=== PATIENT | female | born 1955 | race Caucasian/White ===

== ENCOUNTER 2016-12-19 09:42 | Inpatient (IN) ==
--- NOTE | 2016-12-19 10:09 | Emergency Department Report ---
General Adult HPI - General Chief complaint: Weakness Stated complaint: soa,weakness Time Seen by Provider: 12/19/16 10:09 Source: patient, family Mode of arrival: ambulatory Limitations: no limitations - History of Present Illness HPI narrative: Patient is a 61-year-old female presents with shortness of air weakness. Patient has a history of high blood pressure, diabetes. Patient states that she had her Dr. do not get along, she has not followed up with him and ran out of her medications 2 months ago. Patient's been having increasing weakness and swelling of her legs, the past 2 weeks specifically has worsened. Patient complains of shortness of breath, oxygen saturations are currently 88% on room air. Patient brought to the ER for evaluation. Onset (ago): week(s) Severity: moderate - Related Data Home Medications Medication Instructions Recorded Confirmed hydroCHLOROthiazide 1 tab PO WB #0 tab 03/18/15 12/19/16 [Hydrochlorothiazide] Insulin Lispro [Humalog Kwikpen 30 unit SQ TIDWM #0 06/23/15 12/19/16 U-200] Moexipril HCl 1 tab PO BID #180 06/23/15 12/19/16 Gabapentin 100 mg PO TID #0 cap 06/24/15 12/19/16 Amlodipine [Norvasc] 5 mg PO DAILY 12/19/16 12/19/16 Citalopram [Celexa] 20 mg PO DAILY 12/19/16 12/19/16 Insulin Glargine,Hum.rec.anlog 53 units SQ HS 12/19/16 12/19/16 [Toujeo Solostar] Levothyroxine Tab [Synthroid] 88 mcg PO ACB 12/19/16 12/19/16 Liraglutide [Victoza] 0.6 mg SQ AM 12/19/16 12/19/16 Simvastatin 20 mg PO DAILY 12/19/16 12/19/16 Allergies Allergy/AdvReac Type Severity Reaction Status Date / Time Sulfa (Sulfonamide Allergy Mild ITCHING Verified 12/19/16 09:51 Antibiotics) azithromycin Allergy Unknown Verified 12/19/16 09:51 Review of Systems Constitutional: Reports: weakness. Denies: fever, chills ENT: Denies: throat pain, dental pain Cardiovascular: Reports: dyspnea on exertion. Denies: chest pain, palpitations Respiratory: Reports: dyspnea. Denies: cough, wheezes, hemoptysis Gastrointestinal: Denies: abdominal pain, nausea, vomiting, hematemesis Genitourinary: Denies: dysuria, frequency Neurological: Reports: weakness (generalized nonspecific). Denies: headache Endocrine: Reports: fatigue PFSH Patient Stated Medical History Macular Degeneration Yes Other HEENT Yes: injections q 7 wks in both eyes Hypertension Yes Diabetes Mellitus Type 1 Yes Shingles Yes Post Menopausal Yes - Social History Smoking status: Never smoker Substance use type: does not use Alcohol intake frequency: does not drink Physical Exam - General General appearance: alert, in no apparent distress - Head Head exam: normal inspection - Eye Eye exam: Present: PERRL, EOMI - ENT ENT exam: Present: normal oropharynx, mucous membranes moist - Neck Neck exam: Present: trachea midline. Absent: tenderness - Chest Chest inspection: Present: symmetric chest wall rise. Absent: tenderness - Respiratory Respiratory exam: Present: normal lung sounds bilaterally, accessory muscle use , prolonged expiratory phase. Absent: respiratory distress, wheezes, stridor - Cardiovascular Cardiovascular exam: Present: regular rate, normal rhythm, normal heart sounds - Abdominal Exam Abdominal exam: Present: soft, normal bowel sounds. Absent: distention, tenderness - Skin Skin exam: Present: warm, dry - Neurological Exam Neurological exam: Present: alert, oriented X3 - Psychiatric Psychiatric exam: Present: normal affect, normal mood Course Vital Signs Temperature 98.2 F 12/19/16 09:51 Pulse Rate 91 12/19/16 09:51 Respiratory Rate 24 12/19/16 09:51 Blood Pressure 226/105 H 12/19/16 09:51 Pulse Oximetry 92 12/19/16 09:51 Temperature 98.5 F 12/19/16 13:15 Pulse Rate 102 H 12/19/16 13:15 Respiratory Rate 30 H 12/19/16 13:15 Blood Pressure 177/74 H 12/19/16 13:15 Pulse Oximetry 88 L 12/19/16 13:15 Medical Decision Making - [facility] Narrative Medical decision making narrative: CHF exacerbation, COPD exacerbation, pulmonary embolus, pneumonia, UTI, sepsis Patient continuing to require 2 L oxygen by nasal cannula discuss case with Dr. Powers she will admit - Medical Records Medical records reviewed: Yes: I reviewed the patient's medical records. - Lab Data Lab results reviewed: Yes: I reviewed the patient's lab results. Result diagrams: 12/19/16 10:28 12/19/16 10:28 Lab Results 12/19/16 12/19/16 12/19/16 Range/Units 10:28 10:28 10:28 WBC 9.2 (4.5-11.0) T/MM3 RBC 3.68 L (4.00-5.20) M/MM3 Hgb 11.3 L (12-16) GM/DL Hct 33.7 L (36-46) % MCV 91.6 (80-100) UM3 MCH 30.7 (26-34) UUG MCHC 33.5 (31-37) GM/DL RDW Std Deviation 40.9 (36.9-50.2) FL Plt Count 294 (130-400) T/MM3 MPV 10.0 (9.4-12.4) UM3 Immature Gran % (Auto) 0.7 H (0.0-0.5) % Neut % (Auto) 73.4 H (33-66) % Lymph % (Auto) 17.4 L (23-45) % [place] % (Auto) 5.8 (0-9.0) % Eos % (Auto) 2.5 (0-4) % Baso % (Auto) 0.2 (0-2) % Neut # (Auto) 6.7 (1.8-7.7) T/MM3 Lymph # (Auto) 1.6 (1-4.8) T/MM3 [place] # (Auto) 0.5 (0-0.8) T/MM3 Eos # (Auto) 0.2 (0-0.5) T/MM3 Baso # (Auto) 0.0 (0-0.2) T/MM3 Abs Immat Gran (auto) 0.06 H (0.00-0.03) T/MM3 D-Dimer 649 H (0-230) NG/ML Turbidity < 20 (0-20) Sodium 136 (134-144) MEQ/L Potassium 4.6 (3.6-5) MEQ/L Chloride 103 (98-107) MEQ/L Carbon Dioxide 26 (22-30) MEQ/L Anion Gap 7 (5-15) MEQ/L BUN 21.0 H (7-17) MG/DL Creatinine 1.0 (0.7-1.2) MG/DL GFR Calculation 57 BUN/Creatinine Ratio 21 (6-26) RATIO Glucose 359 H (65-110) MG/DL Calculated Osmolality 279 (261-280) MOSM/KG Calcium 9.2 (8.4-10.2) MG/DL Total Bilirubin 0.40 (0.20-1.30) MG/DL Icterus Index < 2 (0-7) AST 23 (14-36) U/L ALT 34 (9-52) U/L Alkaline Phosphatase 131 H (38-126) U/L Troponin I < 0.012 (0-0.12) ng/ml B-Natriuretic Peptide 1020 H (0-175) pg/mL Total Protein 7.0 (6.3-8.2) G/DL Albumin 3.2 L (3.5-5.0) G/DL Globulin 3.8 H (2.4-3.6) G/DL Albumin/Globulin Ratio 0.8 L (1.1-2.2) RATIO Specimen Hemolysis 17 (0-25) - Radiology Data Radiology results reviewed: Yes: I reviewed the patient's radiology results. Chest x-ray: Mild edema no mar[place] infiltrates CT scan chest: No pulmonary emboli, edema - EKG Data EKG #1 EKG attestation: Yes: I reviewed and interpreted this EKG. EKG shows normal: sinus rhythm Rate: normal Rhythm: NSR [place]/QRS: normal When compared to previous EKG there are: no significant changes Disposition Clinical Impression: Hypoxemia requiring supplemental oxygen CHF exacerbation Qualifiers: Congestive heart failure type: unspecified congestive heart failure type Qualified Code(s): I50.9 - Heart failure, unspecified Disposition: 02 To [facility] [place] Acute Care Condition: Stable Time of Disposition: 13:33 - Seen By: physician
[2016-12-19] MEDS ORDERED: NITROGLYCERIN 0.4 MG SUBLINGUAL TABLET SL PRN (10:12)
[2016-12-19] MEDS ORDERED: HYDRALAZINE 20 MG/ML INJECTION IVP ONE ×2 (10:13→12:11)
--- OUTSIDE RECORDS SUMMARY | 2016-12-19 10:15 | External Medical Summary | Referral Summary ---
:1955 Author Organization [facility] [address] [place] [id number] Care Team Providers Name Role Phone Ted Francisco Primary Care Physician Encounter VC Date(s): 11/15/15 - 11/15/15 [facility] [address] [place] [phone] [place] Discharge Diagnosis: Hypertension Discharge Diagnosis: Diabetes Discharge Diagnosis: Adult-onset obesity Discharge Disposition: 01-Home or Self Care Attending Physician: Ayala Echevarria PA-C Admitting Physician: Ayala Echevarria PA-C Vital Signs Most recent to oldest [Reference Range]: 1 Peripheral Pulse Rate [60-100 bpm] 72 bpm (11/15/15 9:59 AM) Respiratory Rate [14-20 br/min] 16 br/min (11/15/15 9:59 AM) Blood Pressure [90-140/60-90 mmHg] 154/74 mmHg *HI* (11/15/15 9:59 AM) Problem List Condition Effective Dates Status Health Status Informant Adult-onset obesity(Confirmed) Active Asthma(Confirmed) Active Bilateral cataracts(Confirmed) Active Coronary artery disease(Confirmed) Active Diabetes(Confirmed) Active Edema(Confirmed) Active Hernia, ventral(Confirmed) Active Hyperlipidemia(Confirmed) Active Hypertension(Confirmed) Active Adult hypothyroidism(Confirmed) Active Depression(Confirmed) Active Allergies, Adverse Reactions, Alerts Substance Reaction Severity Status erythromycin Hives Active Erythromycin Base Hives Active sulfamethoxazole Active trimethoprim Active Medications aspirin 0 Refill(s) Start Date: 01/08/14 Status: OrderedBD pen needles BD pen needles, See Instructions, 31 g x 8 mm (short). Uses 4 daily. Box of 100. , # 4 boxes, 1 Refill(s), Pharmacy: [facility], 31 g x 8 mm (short). Uses 4 daily. Box of 100. Start Date: 10/19/15 Status: Orderedcitalopram 20 mg oral tablet 20 mg 1 tabs, Oral, Daily, # 90 tabs, 1 Refill(s), Pharmacy: [facility], 1 tabs Oral Daily Start Date: 10/19/15 Status: Orderedgabapentin 100 mg oral capsule 100 mg 1 caps, Oral, TID, # 90 caps, 3 Refill(s), Pharmacy: [facility], 1 caps Oral TID Start Date: 08/20/15 Status: OrderedHumaLOG KwikPen 100 units/mL subcutaneous solution 30 units, SubCutaneous, TIDAC, # 10 mL, 6 Refill(s), Pharmacy: [facility], 30units SubCutaneous TIDAC Start Date: 11/15/15 Status: Orderedhydrochlorothiazide 25 mg oral tablet 25 mg 1 tabs, Oral, Daily, # 90 tabs, 1 Refill(s), Pharmacy: [facility], 1 tabs Oral Daily Start Date: 10/19/15 Status: OrderedMisc Medication eye drops for right eye glaucoma, 0 Refill(s) Start Date: 02/09/15 Status: OrderedMobic 7.5 mg oral tablet 7.5 mg 1 tabs, Oral, Daily, # 30 tabs, 0 Refill(s), Pharmacy: [facility], 1 tabs Oral Daily Start Date: 07/09/15 Status: OrderedNorvasc 5 mg oral tablet 5 mg 1 tabs, Oral, Daily, # 90 tabs, 3 Refill(s), Pharmacy: [facility], 1 tabs Oral Daily Start Date: 11/05/15 Status: OrderedONE TOUCH ULTRA TEST STRIPS ONE TOUCH ULTRA TEST STRIPS, See Instructions, USE 4 TIMES DAILY. Box of 100 strips. DX: E 11.9, # 4 boxes, 1 Refill(s), Pharmacy: [facility], USE 4 TIMES DAILY. Box of 100 strips. DX: E 11.9 Start Date: 10/19/15 Status: OrderedProAir HFA 90 mcg/inh inhalation aerosol 180 mcg 2 puffs, Inhalation, q4hr, # 1 Each, 2 Refill(s), Pharmacy: [facility] Start Date: 10/19/15 Status: OrderedSynthroid 88 mcg (0.088 mg) oral tablet 88 mcg 1 tabs, Oral, Daily, # 90 tabs, 1 Refill(s), Pharmacy: [facility], Note dose increase, 1 tabs Oral Daily Start Date: 10/19/15 Status: OrderedToujeo SoloStar 300 units/mL subcutaneous solution 48 units, SubCutaneous, Bedtime (once a day), Increased to 50u at bedtime on 02/17, # 9 Each, 1 Refill(s), Pharmacy: [facility], Note dose increase, 48 units SubCutaneous Bedtime (once a day),x30 days Start Date: 11/05/15 Stop Date: 01/04/16 Status: OrderedUnivasc 15 mg oral tablet 15 mg 1 tabs, Oral, BID, # 180 tabs, 1 Refill(s), Pharmacy: [facility], 1 tabs Oral BID Start Date: 10/19/15 Status: OrderedVictoza 18 mg/3 mL subcutaneous solution 1.2 mg, SubCutaneous, Daily, # 6 Each, 3 Refill(s), Pharmacy: [facility], [place] card if needed., 1.2 mg SubCutaneous Daily Start Date: 11/05/15 Status: OrderedZocor 20 mg oral tablet 20 mg 1 tabs, Oral, Bedtime (once a day), # 90 tabs, 3 Refill(s), [facility], 1 tabs Oral Bedtime (once a day) Start Date: 11/05/15 Status: Ordered Results No data available for this section Immunizations Vaccine Date Refusal Reason tetanus/diphth/pertuss (Tdap) adult/adol 06/09/13 Procedures Procedure Date Related Diagnosis Body Site COLORECTAL CANCER SCREENING; COLONOSCOPY ON 06/24/15 INDIVIDUAL NOT MEETING CRITERIA FOR HIGH RISK1 Cholecystectomy 1996 Carpal tunnel release Cataract extraction section 1April 2015 normal colonoscopy, repeat in 10 years Social History Social History Type Response Smoking Status Never smoker Assessment and Plan Extracted from: Title: Ambulatory Patient Education Author: Ayala Echevarria PA-C Date: Family Medicine Hypertension Hypertension, commonly called high blood pressure, is when the force of blood pumping through your arteries is too strong. Your arteries are the blood vessels that carry blood from your heart throughout your body. A blood pressure reading consists of a higher number over a lower number, such as 110/72. The higher number (systolic) is the pressure inside your arteries when your heart pumps. The lower n umber (diastolic) is the pressure inside your arteries when your heart relaxes. Ideally you want your blood pressure below 120/80. Hypertension forces your heart to work harder to pump blood. Your arteries may become narrow or stiff. Having hypertension puts you at risk for heart disease, stroke, and other problems. RISK FACTORS Some risk factors for high blood pressure are controllable. Others are not. Risk factors you cannot control include: Race. You may be at higher risk if you are . Age. Risk increases with age. Gender. Men are at higher risk than women before age 45 years. After age 65, women are at higher risk than men. Risk factors you can control include: Not getting enough exercise or physical activity. Being overweight. Getting too much fat, sugar, calories, or salt in your diet. Drinking too much alcohol. SIGNS AND SYMPTOMS Hypertension does not usually cause signs or symptoms. Extremely high blood pressure (hypertensive crisis) may cause headache, anxiety, shortness of breath , and nosebleed. DIAGNOSIS To check if you have hypertension, your health care provider will measure your blood pressure while you are seated, with your arm held at the level of your heart. It should be measured at least twice us ing the same arm. Certain conditions can cause a difference in blood pressure between your right and left arms. A blood pressure reading that is higher than normal on one occasion does not mean that you need treatment. If it is not clear whether you have high blood pressure, you may be asked to return on a different day to have your blood pressure checked again. Or, you may be asked to monitor your blood pressure at home for 1 or more weeks. TREATMENT Treating high blood pressure includes making lifestyle changes and possibly taking medicine. Living a healthy lifestyle can help lower high blood pressure. You may need to change some of your habits. Lifestyle changes may include: Following the DASH diet. This diet is high in fruits, vegetables, and whole grains. It is low in salt, red meat, and added sugars. Keep your sodium intake below 2,300 mg per day. Getting at least 3045 minutes of aerobic exercise at least 4 times per week. Losing weight if necessary. Not smoking. Limiting alcoholic beverages. Learning ways to reduce stress. Your health care provider may prescribe medicine if lifestyle changes are not enough to get your blood pressure under control, and if one of the following is true: Your systolic blood pressure is above 150. Your diastolic blood pressure is above 90. You have diabetes, and your systolic blood pressure is over 140 or your diastolic blood pressure is over 85. You have heart disease or have had a stroke or heart attack, and your blood pressure is above 130 over 80, which is written as 130/80. HOME CARE INSTRUCTIONS Have your blood pressure rechecked as directed by your health care provider. Take medicines only as directed by your health care provider. Follow the directions carefully. Blood pressure medicines must be taken as prescribed. The medicine does not work as well when you sk ip doses. Skipping doses also puts you at risk for problems. Do not smoke. Monitor your blood pressure at home as directed by your health care provider. SEEK MEDICAL CARE IF: You think you are having a reaction to medicines taken. You have recurrent headaches or feel dizzy. You have swelling in your ankles. You have trouble with your vision. SEEK IMMEDIATE MEDICAL CARE IF: You develop a severe headache or confusion. You have unusual weakness, numbness, or feel faint. You have severe chest or abdominal pain. You vomit repeatedly. You have trouble breathing. MAKE SURE YOU: Understand these instructions. Will watch your condition. Will get help right away if you are not doing well or get worse. This information is not intended to replace advice given to you by your health care provider. Make sure you discuss any questions you have with your health care provider. Document Released: 02/19/2006 Document Revised: 03/12/2015 Document Reviewed: 12/12/2013 [employer] Patient Information 2016 [employer]. Health and Wellness Exercising to Lose Weight Exercising can help you to lose weight. In order to lose weight through exercise, you need to do vigorous-intensity exercise. You can tell that you are exercising with vigorous intensity if you are felicitas thing very hard and fast and cannot hold a conversation while exercising. Moderate-intensity exercise helps to maintain your current weight. You can tell that you are exercising at a moderate level if you have a higher heart rate and faster breathing, but you are still able to hold a conversation. HOW OFTEN SHOULD I EXERCISE? Choose an activity that you enjoy and set realistic goals. Your health care provider can help you to make an activity plan that works for you. Exercise regularly as directed by your health care provider. This may include: Doing resistance training twice each week, such as: Push-ups. Sit-ups. Lifting weights. Using resistance bands. Doing a given intensity of exercise for a given amount of time. Choose from these options: 150 minutes of moderate-intensity exercise every week. 75 minutes of vigorous-intensity exercise every week. A mix of moderate-intensity and vigorous-intensity exercise every week. Children, women, people who are out of shape, people who are overweight, and older adults may need to consult a health care provider for individual recommendations. If you have any sort of medi darrell condition, be sure to consult your health care provider before starting a new exercise program. WHAT ARE SOME ACTIVITIES THAT CAN HELP ME TO LOSE WEIGHT? Walking at a rate of at least 4.5 miles an hour. Jogging or running at a rate of 5 miles per hour. Biking at a rate of at least 10 miles per hour. Lap swimming. Roller-skating or in-line skating. Cross-country skiing. Vigorous competitive sports, such as football, basketball, and soccer. Jumping rope. Aerobic dancing. HOW CAN I BE MORE ACTIVE IN MY DAY-TO-DAY ACTIVITIES? Use the stairs instead of the elevator. Take a walk during your lunch break. If you drive, park your car farther away from work or school. If you take public transportation, get off one stop early and walk the rest of the way. Make all of your phone calls while standing up and walking around. Get up, stretch, and walk around every 30 minutes throughout the day. WHAT GUIDELINES SHOULD I FOLLOW WHILE EXERCISING? Do not exercise so much that you hurt yourself, feel dizzy, or get very short of breath. Consult your health care provider prior to starting a new exercise program. Wear comfortable clothes and shoes with good support. Drink plenty of water while you exercise to prevent dehydration or heat stroke. Body water is lost during exercise and must be replaced. Work out until you breathe faster and your heart beats faster. This information is not intended to replace advice given to you by your health care provider. Make sure you discuss any questions you have with your health care provider. Document Released: 03/24/2011 Document Revised: 03/12/2015 Document Reviewed: 07/23/2014 [facility] Patient Information 2016 [facility], [facility]. Ophthalmology Type 2 Diabetes Mellitus Type 2 diabetes mellitus, often simply referred to as type 2 diabetes, is a long-lasting (chronic) disease. In type 2 diabetes, the pancreas does not make enough insulin (a hormone), the cells are less responsive to the insulin that is made (insulin resistance), or both. Normally , insulin moves sugars from food into the tissue cells. The tissue cells use the sugars for energy. The lack of insulin or t he lack of normal response to insulin causes excess sugars to build up in the blood instead of going into the tissue cells. As a result, high blood sugar ( hyperglycemia) develops. The effect of high sug ar (glucose) levels can cause many complications. Type 2 diabetes was also previously called adult-onset diabetes, but it can occur at any age. RISK FACTORS A person is predisposed to developing type 2 diabetes if someone in the family has the disease and also has one or more of the following primary risk factors: Weight gain, or being overweight or obese. An inactive lifestyle. A history of consistently eating high-calorie foods. Maintaining a normal weight and regular physical activity can reduce the chance of developing type 2 diabetes. SYMPTOMS A person with type 2 diabetes may not show symptoms initially. The symptoms of type 2 diabetes appear slowly. The symptoms include: Increased thirst (polydipsia). Increased urination (polyuria). Increased urination during the night (nocturia). Sudden or unexplained weight changes. Frequent, recurring infections. Tiredness (fatigue). Weakness. Vision changes, such as blurred vision. Fruity smell to your breath. Abdominal pain. Nausea or vomiting. Cuts or bruises which are slow to heal. Tingling or numbness in the hands or feet. DIAGNOSIS Type 2 diabetes is frequently not diagnosed until complications of diabetes are present. Type 2 diabetes is diagnosed when symptoms or complications are present and when blood glucose levels are increas ed. Your blood glucose level may be checked by one or more of the following blood tests: A fasting blood glucose test. You will not be allowed to eat for at least 8 hours before a blood sample is taken. A random blood glucose test. Your blood glucose is checked at any time of the day regardless of when you ate. A hemoglobin A1c blood glucose test. A hemoglobin A1c test provides information about blood glucose control over the previous 3 months. An oral glucose tolerance test (OGTT). Your blood glucose is measured after you have not eaten (fasted) for 2 hours and then after you drink a glucose -containing beverage. TREATMENT You may need to take insulin or diabetes medicine daily to keep blood glucose levels in the desired range. If you use insulin, you may need to adjust the dosage depending on the carbohydrates that you eat with each meal or snack. Lifestyle changes are recommended as part of your treatment. These may include: Following an individualized diet plan developed by a assistant speech language pathologist or dietitian. Exercising daily. Your health care providers will set individualized treatment goals for you based on your age, your medicines, how long you have had diabetes, and any other medical conditions you have. Generally, the go al of treatment is to maintain the following blood glucose levels: Before meals (preprandial): 38249 mg/dL. After meals (postprandial): below 180 mg/dL. A1c: less than 6.57%. HOME CARE INSTRUCTIONS Have your hemoglobin A1c level checked twice a year. Perform daily blood glucose monitoring as directed by your health care provider. Monitor urine ketones when you are ill and as directed by your health care provider. Take your diabetes medicine or insulin as directed by your health care provider to maintain your blood glucose levels in the desired range. Never run out of diabetes medicine or insulin. It is needed every day. If you are using insulin, you may need to adjust the amount of insulin given based on your intake of carbohydrates. Carbohydrates can raise blood glucose levels but need to be included in your di et. Carbohydrates provide vitamins, minerals, and fiber which are an essential part of a healthy diet. Carbohydrates are found in fruits, vegetables, whole grains, dairy products, legumes, and foods containing added sugars. Eat healthy foods. You should make an appointment to see a registered dietitian to help you create an eating plan that is right for you. Lose weight if you are overweight. Carry a medical alert card or wear your medical alert jewelry. Carry a 15-gram carbohydrate snack with you at all times to treat low blood glucose (hypoglycemia). Some examples of 15-gram carbohydrate snacks include: Glucose tablets, 3 or 4. Glucose gel, 15-gram tube. Raisins, 2 tablespoons (24 grams). Jelly beans, 6. Animal crackers, 8. Regular pop, 4 ounces (120 mL). Gummy treats, 9. Recognize hypoglycemia. Hypoglycemia occurs with blood glucose levels of 70 mg/dL and below. The risk for hypoglycemia increases when fasting or skipping meals, during or after intense exercise, and during sleep. Hypoglycemia symptoms can include: Tremors or shakes. Decreased ability to concentrate. Sweating. Increased heart rate. Headache. Dry mouth. Hunger. Irritability. Anxiety. Restless sleep. Altered speech or coordination. Confusion. Treat hypoglycemia promptly. If you are alert and able to safely swallow , follow the 15:15 rule: Take 1520 grams of rapid-acting glucose or carbohydrate. Rapid- acting options include glucose gel, glucose tablets, or 4 ounces (120 mL) of fruit juice, regular soda, or low-fat milk. Check your blood glucose level 15 minutes after taking the glucose. Take 1520 grams more of glucose if the repeat blood glucose level is still 70 mg/dL or below. Eat a meal or snack within 1 hour once blood glucose levels return to normal. Be alert to feeling very thirsty and urinating more frequently than usual, which are early signs of hyperglycemia. An early awareness of hyperglycemia allows for prompt treatment. Treat hyperglycemia as directed by your health care provider. Engage in at least 150 minutes of moderate-intensity physical activity a week, spread over at least 3 days of the week or as directed by your health care provider. In addition, you should engage in resistance exercise at least 2 times a week or as directed by your health care provider. Try to spend no more than 90 minutes at one time inactive. Adjust your medicine and food intake as needed if you start a new exercise or sport. Follow your sick-day plan anytime you are unable to eat or drink as usual. Do not use any tobacco products including cigarettes, chewing tobacco, or electronic cigarettes. If you need help quitting, ask your health care provider. Limit alcohol intake to no more than 1 drink per day for non women and 2 drinks per day for men. You should drink alcohol only when you are also eating food. Talk with your health care pr ovider whether alcohol is safe for you. Tell your health care provider if you drink alcohol several times a week. Keep all follow-up visits as directed by your health care provider. This is important. Schedule an eye exam soon after the diagnosis of type 2 diabetes and then annually. Perform daily skin and foot care. Examine your skin and feet daily for cuts, bruises, redness, nail problems, bleeding, blisters, or sores. A foot exam by a health care provider should be done annually. Ragland your teeth and gums at least twice a day and floss at least once a day. Follow up with your dentist regularly. Share your diabetes management plan with your workplace or school. Keep your immunizations up to date. It is recommended that you receive a flu (influenza) vaccine every year. It is also recommended that you receive a pneumonia (pneumococcal) vaccine. If you are 65 years of age or older and have never received a pneumonia vaccine, this vaccine may be given as a series of two separate shots. Ask your health care provider which additional vaccines may be recommended. Learn to manage stress. Obtain ongoing diabetes education and support as needed. Participate in or seek rehabilitation as needed to maintain or improve independence and quality of life. Request a physical or occupational therapy referral if you are having foot or hand numbnes s, or difficulties with grooming, dressing, eating, or physical activity. SEEK MEDICAL CARE IF: You are unable to eat food or drink fluids for more than 6 hours. You have nausea and vomiting for more than 6 hours. Your blood glucose level is over 240 mg/dL. There is a change in mental status. You develop an additional serious illness. You have diarrhea for more than 6 hours. You have been sick or have had a fever for a couple of days and are not getting better. You have pain during any physical activity. SEEK IMMEDIATE MEDICAL CARE IF: You have difficulty breathing. You have moderate to large ketone levels. MAKE SURE YOU: Understand these instructions. Will watch your condition. Will get help right away if you are not doing well or get worse. This information is not intended to replace advice given to you by your health care provider. Make sure you discuss any questions you have with your health care provider. Document Released: 02/19/2006 Document Revised: 03/12/2015 Document Reviewed: 09/17/2012 ExitCare Patient Information 2016 [facility] [facility]. No follow up information was provided. Extracted from: Title: Office Visit Note- Recheck Author: Ayala Echevarria PA-C Date: 02/17 HTN/DM Assessment/Plan Adult-onset obesity She seems to be doing well on the Victoza. Will continue on 1.2mg at this time. Monitor weight, and work on exercise. Ordered: Office Visit Level 3 Est 80580 Diabetes Her blood sugars during the day seem to be fine, but the fasting BG is veryhigh. Will have pt increase her Toujeo to 50u at bedtime. Continue on Humalog at 30u at meals. She can adjust as n eeded for how much she is eating. Sheapparently didn't receive her Humalog KwikPens with her other meds from [facility] back in October. I tried to resend another script today, and see if she needs aPA or if they just didn't receive therefill script. She has enough Humalog at this time. Pt is advised to recheck in clinic in January to recheck labs. Call with any concerns before that time. Ordered: Office Visit Level 3 Est 80933 Hypertension Her BP is still a little high. She is advised to continue to check BP's at home, and if consistently >150/90, then we need to adjust meds. She is already on HCTZ, Univasc, and Norvasc. Work on decreasing salt intake and losing weight. Will recheck with pt in January. Ordered: Office Visit Level 3 Est [id number] Orders: insulin glargine, 48 units, SubCutaneous, Bedtime (once a day), Increased to 50u at bedtime on 11/15/15, # 9 Each, 1 Refill(s), [facility], Note dose increase, 48 units SubCutaneous Bedtime (once a day),x30 days insulin lispro, 30 units, SubCutaneous, TIDAC, # 10 mL, 6 Refill(s), [facility] Pharmacy, 30 units SubCutaneous TIDAC
--- OUTSIDE RECORDS SUMMARY | 2016-12-19 10:15 | External Medical Summary | Referral Summary ---
:1955 Author Organization [facility] [address] [place] [address] Care Team Providers Name Role Phone Ted Francisco Primary Care Physician Encounter VC Date(s): 02/09/15 - 02/09/15 [facility] [address] [place] [phone] [place] Discharge Disposition: 01-Home or Self Care Attending Physician: Ted Francisco MD Admitting Physician: Ted Francisco MD Vital Signs Most recent to oldest [Reference Range]: 1 Blood Pressure [90-140/60-90 mmHg] 140/80 mmHg (02/09/15 8:09 AM) Problem List Condition Effective Dates Status Health Status Informant Adult-onset obesity(Confirmed) Active Bilateral cataracts(Confirmed) Active Coronary artery disease(Confirmed) Active Diabetes(Confirmed) Active Edema(Confirmed) Active Hypertension(Confirmed) Active Adult hypothyroidism(Confirmed) Active Allergies, Adverse Reactions, Alerts Substance Reaction Severity Status erythromycin Hives Active Erythromycin Base Hives Active sulfamethoxazole Active trimethoprim Active Medications aspirin 0 Refill(s) Start Date: 01/08/14 Status: OrderedBD pen needles BD pen needles, See Instructions, 31 g x 8 mm (short). Uses 4 daily. Box of 100. , # 4 boxes, 1 Refill(s), Pharmacy: [facility]/pharmacy, 31 g x 8 mm (short). Uses 4 daily. Box of 100. Start Date: 12/17/14 Status: Orderedhydrochlorothiazide 25 mg oral tablet 25 mg 1 tabs, Oral, Daily, # 90 tabs, 0 Refill(s), Pharmacy: [facility]/ pharmacy, 1 tabs Oral Daily Start Date: 12/07/14 Status: OrderedMisc Medication eye drops for right eye glaucoma, 0 Refill(s) Start Date: 02/09/15 Status: OrderedNovoLOG FlexPen 100 units/mL subcutaneous solution 35 units, SubCutaneous, TIDAC, # 10 mL, 0 Refill(s), other reason (Rx), 40 units SubCutaneous TIDAC,x90 days Start Date: 12/22/14 Stop Date: 03/22/15 Status: OrderedONE TOUCH ULTRA TEST STRIPS ONE TOUCH ULTRA TEST STRIPS, See Instructions, USE 4 TIMES DAILY. Box of 100 strips. DX: E 11.9, # 4 boxes, 1 Refill(s), Pharmacy: [facility]/pharmacy, USE 4 TIMES DAILY. Box of 100 strips. DX: E 11.9 Start Date: 12/17/14 Status: OrderedProAir HFA 90 mcg/inh inhalation aerosol 2 puffs, Inhalation, q4hr, # 1 Each, 2 Refill(s), [id number] Start Date: 05/28/14 Status: OrderedSynthroid 50 mcg (0.05 mg) oral tablet 50 mcg 1 tabs, Oral, Daily, # 60 tabs, 0 Refill(s), [facility], 1 tabs Oral Daily,x60 days Start Date: 02/09/15 Stop Date: 04/10/15 Status: OrderedToufrancescoo SoloStar 300 units/mL subcutaneous solution 45 units, SubCutaneous, Bedtime (once a day), # 4 mL, 0 Refill(s), samples given to patient (Rx) Start Date: 02/09/15 Stop Date: 03/11/15 Status: OrderedUnivasc 15 mg oral tablet 15 mg 1 tabs, Oral, Daily, # 90 tabs, 1 Refill(s), [facility], 1 tabs Oral Daily Start Date: 02/09/15 Status: Ordered Results Chemistry Most recent to oldest [Reference Range]: 1 Sodium Lvl [135-144 mEq/L] 139 mEq/L (02/09/15 8:40 AM) Potassium Lvl [3.5-5.2 mEq/L] 4.8 mEq/L (02/09/15 8:40 AM) Chloride [99-111 mEq/L] 103 mEq/L (02/09/15 8:40 AM) CO2 [22-31 mEq/L] 26 mEq/L (02/09/15 8:40 AM) AGAP [3-20] 10 (02/09/15 8:40 AM) BUN [10-20 mg/dL] 19 mg/dL (02/09/15 8:40 AM) Glucose Lvl [70-99 mg/dL] 211 mg/dL *HI* (02/09/15 8:40 AM) Creatinine Lvl [0.57-1.11 mg/dL] 0.82 mg/dL (02/09/15 8:40 AM) eGFR [>60 mL/min] >60 mL/min 1 (02/09/15 8:40 AM) Calcium Lvl [8.9-10.5 mg/dL] 9.5 mg/dL (02/09/15 8:40 AM) Albumin Lvl [3.5-5.0 gm/dL] 3.3 gm/dL *LOW* (02/09/15 8:40 AM) Total Protein [6.4-8.3 gm/dL] 6.1 gm/dL *LOW* (02/09/15 8:40 AM) Globulin [1.8-4.0 gm/dL] 2.8 gm/dL (02/09/15 8:40 AM) ALT [0-55 U/L] 19 U/L (02/09/15 8:40 AM) AST [5-34 U/L] 21 U/L (02/09/15 8:40 AM) Alk Phos [40-150 U/L] 94 U/L (02/09/15 8:40 AM) Bili Total [0.2-1.2 mg/dL] 0.4 mg/dL (02/09/15 8:40 AM) BNP [0-99 pg/mL] 45 pg/mL (02/09/15 8:40 AM) T4 Free [0.7-1.5 ng/dL] 1.0 ng/dL (02/09/15 8:40 AM) TSH with Reflex Free T4 [0.35-4.94] 6.15 *HI* (02/09/15 8:40 AM) Hgb A1c [4.1-5.6 %] 7.8 % *HI* (02/09/15 8:40 AM) eAvg Glucose 177.2 mg/dL (02/09/15 8:40 AM) 1Result Comment: Multiply eGFR results by 1.21 for race. Immunizations Vaccine Date Refusal Reason tetanus/diphth/pertuss (Tdap) adult/adol 06/09/13 Procedures Procedure Date Related Diagnosis Body Site Collection of venous blood by venipuncture 02/09/15 Carpal tunnel release Cataract extraction section Cholecystectomy Social History Social History Type Response Smoking Status Never smoker Assessment and Plan Extracted from: Title: Ambulatory Patient Education Author: Ted Francisco MD Date: Ophthalmology Cataract A cataract is a clouding of the lens of the eye. When a lens becomes cloudy, vision is reduced based on the degree and nature of the clouding. Many cataracts reduce vision to some degree. Some cataracts make people more near-sighted as they develop. Other cataracts increase glare. Cataracts that are ignored and become worse can sometimes look white. The white color can be seen through the pupil. CAUSES Aging. However, cataracts may occur at any age, even in newborns. Certain drugs. Trauma to the eye. Certain diseases such as diabetes. Specific eye diseases such as chronic inflammation inside the eye or a sudden attack of a rare form of glaucoma. Inherited or acquired medical problems. SYMPTOMS Gradual, progressive drop in vision in the affected eye. Severe, rapid visual loss. This most often happens when trauma is the cause. DIAGNOSIS To detect a cataract, an eye doctor examines the lens. Cataracts are best diagnosed with an exam of the eyes with the pupils enlarged (dilated) by drops. TREATMENT For an early cataract, vision may improve by using different eyeglasses or stronger lighting. If that does not help your vision, surgery is the only effective treatment. A cataract needs to be surgicall y removed when vision loss interferes with your everyday activities, such as driving, reading, or watching TV. A cataract may also have to be removed if it prevents examination or treatment of another e ye problem. Surgery removes the cloudy lens and usually replaces it with a substitute lens (intraocular lens, IOL). At a time when both you and your doctor agree, the cataract will be surgically removed. If you have cataracts in both eyes, only one is usually removed at a time. This allows the operated eye to heal an d be out of danger from any possible problems after surgery (such as infection or poor wound healing). In rare cases, a cataract may be doing damage to your eye. In these cases, your caregiver may advis e surgical removal right away. The vast majority of people who have cataract surgery have better vision afterward. HOME CARE INSTRUCTIONS If you are not planning surgery, you may be asked to do the following: Use different eyeglasses. Use stronger or brighter lighting. Ask your eye doctor about reducing your medicine dose or changing medicines if it is thought that a medicine caused your cataract. Changing medicines does not make the cataract go away on its own. Become familiar with your surroundings. Poor vision can lead to injury. Avoid bumping into things on the affected side. You are at a higher risk for tripping or falling. Exercise extreme care when driving or operating machinery. Wear sunglasses if you are sensitive to bright light or experiencing problems with glare. SEEK IMMEDIATE MEDICAL CARE IF: You have a worsening or sudden vision loss. You notice redness, swelling, or increasing pain in the eye. You have a fever. Document Released: 02/19/2006 Document Revised: 05/13/2012 Document Reviewed: 10/13/2011 ExitCare Patient Information 2015 [employer]. This information is not intended to replace advice given to you by your health care provider. Make sure you discuss any questions you have with your health care provider. No follow up information was provided. Extracted from: Title: Office Visit Note Author: Ted Francisco MD Date: 02/09/15 Assessment/Plan Adult hypothyroidism This issue was reviewed, appears stable, and current therapy continued except as mentioned. Appropriate lab was reviewed from the most recent appropriate entry and lab was order ed if needed in the cpoe/nursing orders, and follow up recommended generally in 90 days and no later then six months. Lab reviewed and lab pending. Adult-onset obesity Diet and exercise as tolerated and feasible. Consider medication when interested. Bilateral cataracts Lab pending. HbA1C needs to be under 9 and have a recheck for any surgical clearance. Coronary artery disease This issue was reviewed, appears stable, and current therapy continued except as mentioned. Appropriate lab was reviewed from the most recent appropriate entry and lab was or dered if needed in the cpoe/nursing orders, and follow up recommended generally in 90 days and no later then six months. Diabetes Samples of the new medication were provided as a courtesy. Side effects were discussed and follow up was recommended. Please make the medication adjustments we discussed. Please notify t he office for any difficulties or concerns. Toujeo to [address] of lantus as a trial and possible less expensive. Lab pending. Edema Lab pending. Elevated legs. Support hose. High blood sugar See above. Ordered: B-Type Natriuretic Peptide Comprehensive Metabolic Panel Hemoglobin A1c TSH with Reflex Free T4 Orders: insulin glargine, 45 units, SubCutaneous, Bedtime (once a day), # 4 mL, 0 Refill(s), samples given to patient (Rx) levothyroxine, 50 mcg 1 tabs, Oral, Daily, # 60 tabs, 0 Refill(s), Pharmacy: [id number], 1 tabs Oral Daily,x60 days moexipril, 15 mg 1 tabs, Oral, Daily, # 90 tabs, 1 Refill(s), Pharmacy: [facility], 1 tabs Oral Daily
--- OUTSIDE RECORDS SUMMARY | 2016-12-19 10:15 | External Medical Summary | Referral Summary ---
:1955 Author Organization [facility] Address [address] [place] [address] [place] [address] Care Team Providers Name Role Phone Ted Francisco Primary Care Physician Encounter VC Date(s): 06/04/15 - 06/04/15 [facility] [address] [place] [phone] [place] Discharge Disposition: 01-Home or Self Care Attending Physician: Ted Francisco MD Admitting Physician: Ted Francisco MD Vital Signs Most recent to oldest [Reference Range]: 1 Blood Pressure [90-140/60-90 mmHg] 160/80 mmHg *HI* (06/04/15 2:20 PM) Problem List Condition Effective Dates Status Health Status Informant Adult-onset obesity(Confirmed) Active Asthma(Confirmed) Active Bilateral cataracts(Confirmed) Active Coronary artery disease(Confirmed) Active Diabetes(Confirmed) Active Edema(Confirmed) Active Hernia, ventral(Confirmed) Active Hypertension(Confirmed) Active Adult hypothyroidism(Confirmed) Active Allergies, Adverse Reactions, Alerts Substance Reaction Severity Status erythromycin Hives Active Erythromycin Base Hives Active sulfamethoxazole Active trimethoprim Active Medications aspirin 0 Refill(s) Start Date: 01/08/14 Status: OrderedBD pen needles BD pen needles, See Instructions, 31 g x 8 mm (short). Uses 4 daily. Box of 100. , # 4 boxes, 1 Refill(s), Pharmacy: [facility]/pharmacy, 31 g x 8 mm (short). Uses 4 daily. Box of 100. Start Date: 12/17/14 Status: Orderedgabapentin 100 mg oral capsule See Instructions, Take 1 cap PO QHS x 2 days, then 1 cap PO BID x 2 days, then 1 cap PO TID, # 90 caps, eRx: [id number], Take 1 cap PO QHS x 2 days , then 1 cap PO BID x 2 days, then 1 cap PO TID Start Date: 05/17/15 Status: OrderedSigifredoMaryOG KwikPen 100 units/mL subcutaneous solution 30 units, SubCutaneous, TIDAC, # 10 mL, 6 Refill(s), Pharmacy: [facility], 30units SubCutaneous TIDAC Start Date: 04/14/15 Status: Orderedhydrochlorothiazide 25 mg oral tablet 25 mg 1 tabs, Oral, Daily, # 90 tabs, 1 Refill(s), Pharmacy: [facility], 1 tabs Oral Daily Start Date: 04/14/15 Status: OrderedMisc Medication eye drops for right eye glaucoma, 0 Refill(s) Start Date: 02/09/15 Status: OrderedNorco 7.5 mg-325 mg oral tablet 1 tabs, Oral, q12hr, as needed for pain, must last 30 days, # 60 tabs, 0 Refill( s) Start Date: 06/04/15 Status: OrderedONE TOUCH ULTRA TEST STRIPS ONE TOUCH ULTRA TEST STRIPS, See Instructions, USE 4 TIMES DAILY. Box of 100 strips. DX: E 11.9, # 4 boxes, 1 Refill(s), Pharmacy: [facility], USE 4 TIMES DAILY. Box of 100 strips. DX: E 11.9 Start Date: 04/14/15 Status: OrderedProAir HFA 90 mcg/inh inhalation aerosol 180 mcg 2 puffs, Inhalation, q4hr, # 1 Each, 2 Refill(s), Pharmacy: [id number] Start Date: 04/14/15 Status: OrderedSynthroid 75 mcg (0.075 mg) oral tablet 75 mcg 1 tabs, Oral, Daily, # 90 tabs, 0 Refill(s), Pharmacy: [facility], Note new dose, 1 tabs Oral Daily,x90 days Start Date: 06/04/15 Stop Date: 09/02/15 Status: OrderedTokun SoloStar 300 units/mL subcutaneous solution 45 units, SubCutaneous, Bedtime (once a day), # 9 Each, 1 Refill(s), Pharmacy: [facility], 45 units SubCutaneous Bedtime (once a day), x30 days Start Date: 05/13/15 Stop Date: 07/12/15 Status: OrderedUnivasc 15 mg oral tablet 15 mg 1 tabs, Oral, BID, # 180 tabs, 1 Refill(s), Pharmacy: [facility], 1 tabs Oral BID Start Date: 04/14/15 Status: Ordered Results No data available for this section Immunizations Vaccine Date Refusal Reason tetanus/diphth/pertuss (Tdap) adult/adol 06/09/13 Procedures Procedure Date Related Diagnosis Body Site Carpal tunnel release Cataract extraction section Cholecystectomy Social History Social History Type Response Smoking Status Never smoker Assessment and Plan Extracted from: Title: Ambulatory Patient Education Author: eTd Francisco MD Date: Emergency Medicine Abdominal Pain Many things can cause abdominal pain. Usually, abdominal pain is not caused by a disease and will improve without treatment. It can often be observed and treated at home. Your health care provider will do a physical exam and possibly order blood tests and X-rays to help determine the seriousness of your pain. However, in many cases, more time must pass before a clear cause of the pain can be found. Be fore that point, your health care provider may not know if you need more testing or further treatment. HOME CARE INSTRUCTIONS Monitor your abdominal pain for any changes. The following actions may help to alleviate any discomfort you are experiencing: Only take [id number] or prescription medicines as directed by your health care provider. Do not take laxatives unless directed to do so by your health care provider. Try a clear liquid diet (broth, tea, or water) as directed by your health care provider. Slowly move to a bland diet as tolerated. SEEK MEDICAL CARE IF: You have unexplained abdominal pain. You have abdominal pain associated with nausea or diarrhea. You have pain when you urinate or have a bowel movement. You experience abdominal pain that wakes you in the night. You have abdominal pain that is worsened or improved by eating food. You have abdominal pain that is worsened with eating fatty foods. You have a fever. SEEK IMMEDIATE MEDICAL CARE IF: Your pain does not go away within 2 hours. You keep throwing up (vomiting). Your pain is felt only in portions of the abdomen, such as the right side or the left lower portion of the abdomen. You pass bloody or black tarry stools. MAKE SURE YOU: Understand these instructions. Will watch your condition. Will get help right away if you are not doing well or get worse. This information is not intended to replace advice given to you by your health care provider. Make sure you discuss any questions you have with your health care provider. Document Released: 11/29/2005 Document Revised: 02/24/2014 Document Reviewed: 10/29/2013 ExitCare Patient Information 2015 [employer]. No follow up information was provided. Extracted from: Title: Office Visit Note Author: Ted Francisco MD Date: 06/04/15 Assessment/Plan Abdominal pain CT reviewed.She already has an appt with Dr. SPAIN on 06/06 and will discuss her pain with him then. Adult-onset obesity Diet and exercise as tolerated and feasible. Consider medication when interested. Coronary artery disease This issue was reviewed, appears stable, and current therapy continued except as mentioned. Appropriate lab was reviewed from the most recent appropriate entry and lab was or dered if needed in the cpoe/nursing orders, and follow up recommended generally in 90 days and no later then six months. Diabetes The patient was notified for the need for regular quarterly f/u of their diabetes. Further any pertinent medication, supplies, etc were refilled. Additionally, they are to have annual eye exams, foot exams, and regular care. Hernia, ventral ToDr. JUDIT. IMPRESSION: 1. Small left mass, difficult to characterize because of its small size, Although likely a cyst. Status post cholecystectomy. Small fat-containing ventral hernia. Otherwise unremarkable study. [1] Orders: HYDROcodone-acetaminophen, 1 tabs, Oral, q12hr, as needed for pain, must last 30 days, # 60 tabs, 0 Refill(s)
--- OUTSIDE RECORDS SUMMARY | 2016-12-19 10:16 | External Medical Summary | Referral Summary ---
:1955 Author Organization [facility] Address [address] [place] [address] [place] [address] Care Team Providers Name Role Phone Ted Francisco Primary Care Physician Encounter VC Date(s): 03/18/15 - 03/18/15 [facility] [address] [place] [phone] [place] Discharge Disposition: 01-Home or Self Care Attending Physician: Ted Francisco MD Admitting Physician: Ted Francisco MD Vital Signs Most recent to oldest [Reference Range]: 1 Blood Pressure [90-140/60-90 mmHg] 160/100 mmHg *HI* (03/18/15 1:59 PM) Problem List Condition Effective Dates Status [...] , # 4 boxes, 1 Refill(s), Pharmacy: [facility]/pharmacy, 31 g x 8 mm (short). Uses 4 daily. Box of 100. Start Date: 12/17/14 Status: Ordereddoxycycline hyclate 100 mg oral tablet 100 mg 1 tabs, Oral, BID, X 10 days, # 20 tabs, 0 Refill(s), Pharmacy: [id number], 1 tabs Oral BID,x10 days Start Date: 03/12/15 Stop Date: 03/22/15 Status: Orderedhydrochlorothiazide 25 mg oral tablet 25 mg 1 tabs, Oral, Daily, # 90 tabs, 0 Refill(s), Pharmacy: [facility] pharmacy, 1 tabs Oral Daily Start Date: 12/07/14 Status: OrderedMisc Medication eye drops for right eye glaucoma, 0 Refill(s) Start Date: 02/09/15 Status: OrderedNorco 7.5 mg-325 mg oral tablet 1 tabs, Oral, q12hr, as needed for pain, must last 30 days, # 60 tabs, 0 Refill( s) Start Date: 03/15/15 Status: OrderedNovoLOG FlexPen 100 units/mL subcutaneous solution 35 units, SubCutaneous, TIDAC, # 10 mL, 0 Refill(s), other reason (Rx), 40 units SubCutaneous TIDAC,x90 days Start Date: 12/22/14 Stop Date: 03/22/15 Status: OrderedONE TOUCH ULTRA TEST STRIPS ONE TOUCH ULTRA TEST STRIPS, See Instructions, USE 4 TIMES DAILY. Box of 100 strips. DX: E 11.9, # 4 boxes, 1 Refill(s), Pharmacy: [facility]/pharmacy, USE 4 TIMES DAILY. Box of 100 strips. DX: E 11.9 Start Date: 12/17/14 Status: OrderedProAir HFA 90 mcg/inh inhalation aerosol 2 puffs, Inhalation, q4hr, # 1 Each, 2 Refill(s), Pharmacy: [id number] Start Date: 05/28/14 Status: OrderedSynthroid 75 mcg (0.075 mg) oral tablet 75 mcg 1 tabs, Oral, Daily, # 60 tabs, 0 Refill(s), Pharmacy: [id number], Note new dose,1 tabs Oral Daily Start Date: 02/11/15 Status: OrderedToujeo SoloStar 300 units/mL subcutaneous solution 45 units, SubCutaneous, Bedtime (once a day), # 4 mL, 0 Refill(s), samples given to patient (Rx) Start Date: 02/09/15 Stop Date: 03/11/15 Status: OrderedUnivasc 15 mg oral tablet 15 mg 1 tabs, Oral, Daily, # 90 tabs, 1 Refill(s), [facility], 1 tabs Oral Daily Start Date: 02/09/15 Status: Ordered Results No data available for this section Immunizations Vaccine Date Refusal Reason tetanus/diphth/pertuss (Tdap) adult/adol 06/09/13 Procedures Procedure Date Related Diagnosis Body Site Carpal tunnel release Cataract extraction section Cholecystectomy Social History Social History Type Response Smoking Status Never smoker Assessment and Plan Extracted from: Title: Ambulatory Patient Education Author: Ted Francisco MD Date: Home Health Care Cellulitis Cellulitis is an infection of the skin and the tissue beneath it. The infected area is usually red and tender. Cellulitis occurs most often in the arms and lower legs. CAUSES Cellulitis is caused by bacteria that enter the skin through cracks or cuts in the skin. The most common types of bacteria that cause cellulitis are staphylococci and streptococci. SIGNS AND SYMPTOMS Redness and warmth. Swelling. Tenderness or pain. Fever. DIAGNOSIS Your health care provider can usually determine what is wrong based on a physical exam. Blood tests may also be done. TREATMENT Treatment usually involves taking an antibiotic medicine. HOME CARE INSTRUCTIONS Take your antibiotic medicine as directed by your health care provider. Finish the antibiotic even if you start to feel better. Keep the infected arm or leg elevated to reduce swelling. Apply a warm cloth to the affected area up to 4 times per day to relieve pain. Take medicines only as directed by your health care provider. Keep all follow-up visits as directed by your health care provider. SEEK MEDICAL CARE IF: You notice red streaks coming from the infected area. Your red area gets larger or turns dark in color. Your bone or joint underneath the infected area becomes painful after the skin has healed. Your infection returns in the same area or another area. You notice a swollen bump in the infected area. You develop new symptoms. You have a fever. SEEK IMMEDIATE MEDICAL CARE IF: You feel very sleepy. You develop vomiting or diarrhea. You have a general ill feeling (malaise) with muscle aches and pains. MAKE SURE YOU: Understand these instructions. Will watch your condition. Will get help right away if you are not doing well or get worse. Document Released: 11/29/2005 Document Revised: 07/06/2014 Document Reviewed: 05/06/2012 [facility] Patient Information 2015 [employer] [facility]. This information is not intended to replace advice given to you by your health care provider. Make sure you discuss any questions you have with your health care provider. No follow up information was provided. Extracted from: Title: Office Visit Note Author: Ted Francisco MD Date: 03/18/15 Assessment/Plan Adult hypothyroidism This issue was reviewed, appears stable, and current therapy continued except as mentioned. Appropriate lab was reviewed from the most recent appropriate entry and lab was order ed if needed in the cpoe/nursing orders, and follow up recommended generally in 90 days and no later then six months. Labreviewed. Cellulitis Ongoing. Awaitingoption to admit at [facility] but await call from the hospitalist. The patient has family members present who are agreeable with today's plan and have no additional concern s or requests. Father here. If unable to admit here than planOP consult with Wound Care and trial of clindamycin 300mg po qid for ten days. Rest, elevation. To ER if worse in any way. Coronary artery disease This issue was reviewed, appears stable, and current therapy continued except as mentioned. Appropriate lab was reviewed from the most recent appropriate entry and lab was or dered if needed in the cpoe/nursing orders, and follow up recommended generally in 90 days and no later then six months. Diabetes This issue was reviewed, appears stable, and current therapy continued except as mentioned. Appropriate lab was reviewed from the most recent appropriate entry and lab was ordered if needed in the cpoe/nursing orders, and follow up recommended generally in 90 days and no later then six months. The patient was notified for the need for regular quarterly f/u of their diabetes. Further any pertinent medication, supplies, etc were refilled. Additionally, they are to have annual eye exams, foot exams, and regular care. Hypertension This issue was reviewed, appears stable, and current therapy continued except as mentioned. Appropriate lab was reviewed from the most recent appropriate entry and lab was ordered if ne eded in the cpoe/nursing orders, and follow up recommended generally in 90 days and no later then six months. The patient reports their blood pressure has been stable at home and is not having any sign ificant or related problems. There has been no chest pain, chest pressure, soa/ durand. Addendum by Ted Francisco MD on The patient was not eligible for admission March 18, 2015 14:45:18 [employer] but the [facility] with Dr. Stevens agreed to see her today.
--- OUTSIDE RECORDS SUMMARY | 2016-12-19 10:16 | External Medical Summary | Referral Summary ---
:1955 Author Organization [facility] [place] [address] Care Team Providers Name Role Phone Ted Francisco Primary Care Physician Encounter VC Date(s): 12/07/14 - 12/07/14 [facility] [address] [place] [phone]- Discharge Disposition: 01-Home or Self Care Attending Physician: Ted Francisco MD Admitting Physician: Ted Francisco MD Referring Physician: Katty Akbar MD Vital Signs No data available for this section Problem List Condition Effective Dates Status Health Status Informant Adult-onset obesity(Confirmed) Active Bilateral cataracts(Confirmed) Active Coronary artery disease(Confirmed) Active Diabetes(Confirmed) Active Hypertension(Confirmed) Active Allergies, Adverse Reactions, Alerts Substance Reaction Severity Status erythromycin Hives Active Erythromycin Base Hives Active sulfamethoxazole Active trimethoprim Active Medications aspirin 0 Refill(s) Start Date: 01/08/14 Status: OrderedBD- ULTRA FINE PIN NEEDLES [id number] BD- ULTRA FINE PIN NEEDLES [id number], See Instructions, USE FOUR TIMES DAILY DX: 250.02, # 2 boxes, 0Refill(s), Pharmacy: [facility]/pharmacy, USE FOUR TIMES DAILY; DX: 250.02 Start Date: 06/04/14 Status: Orderedhydrochlorothiazide 25 mg oral tablet 25 mg 1 tabs, Oral, Daily, # 90 tabs, 0 Refill(s), Pharmacy: [facility]/ pharmacy, 1 tabs Oral Daily Start Date: 12/07/14 Status: OrderedLantus Solostar Pen 100 units/mL subcutaneous solution 40 units, SubCutaneous, Bedtime (once a day), # 10 mL, 0 Refill(s), Pharmacy: [facility]/pharmacy,40 units SubCutaneous Bedtime (once a day) Start Date: 12/07/14 Status: OrderedNovoLOG FlexPen 100 units/mL subcutaneous solution 40 units, SubCutaneous, TIDAC, # 45 mL, 0 Refill(s), Pharmacy: [facility] pharmacy, 40 units SubCutaneous TIDAC,x90 days Start Date: 12/07/14 Stop Date: 03/07/15 Status: OrderedONE TOUCH ULTRA TEST STRIPS ONE TOUCH ULTRA TEST STRIPS, See Instructions, USE TO 4 TIMES DAILY DX: 250.02 , # 4 boxes, 0 Refill(s), [facility] TO [facility] TIMES DAILY ; DX: 250.02 Start Date: 06/04/14 Status: OrderedProAir HFA 90 mcg/inh inhalation aerosol 2 puffs, Inhalation, q4hr, # 1 Each, 2 Refill(s), Pharmacy: [id number] Start Date: 05/28/14 Status: OrderedUnivasc 15 mg oral tablet 15 mg 1 tabs, Oral, Daily, # 90 tabs, 0 Refill(s), Pharmacy: [facility], 1 tabs Oral Daily Start Date: 12/07/14 Status: Ordered Results Hematology Most recent to oldest [Reference Range]: 1 WBC [4.8-10.8 10*3/uL] 10.1 10*3/uL (12/07/14 9:14 AM) RBC [4.00-5.20] 4.37 (12/07/14 9:14 AM) Hgb [12.0-16.0 gm/dL] 13.8 gm/dL (12/07/14 9:14 AM) Hct [37.0-47.0 %] 38.8 % (12/07/14 9:14 AM) MCV [82.0-99.0 fL] 88.8 fL (12/07/14 9:14 AM) MCH [27.0-32.0 pg] 31.6 pg (12/07/14 9:14 AM) MCHC [32.0-36.0 gm/dL] 35.6 gm/dL (12/07/14 9:14 AM) RDW [11.5-14.5 %] 12.0 % (12/07/14 9:14 AM) Platelet [150-400 10*3/uL] 294 10*3/uL (12/07/14 9:14 AM) MPV [8.8-14.8 fL] 10.9 fL (12/07/14:14 AM) Immature Granulocytes [0.0-1.0 %] 1.0 % (12/07/14:14 AM) Neutrophils [51-75 %] 64 % (12/07/14:14 AM) Lymphocytes [20-46 %] 24 % (12/07/14:14 AM) Monocytes [4-11 %] 8 % (12/07/14 9:14 AM) Eosinophils [0-4 %] 3 % (12/07/14:14 AM) Basophils [0-2 %] 0 % (12/07/14:14 AM) Neutro Absolute [1.90-7.00 10*3] 6.49 10*3 (12/07/14 9:14 AM) Lymph Absolute [0.80-3.30 10*3] 2.38 10*3 (12/07/14:14 AM) Nance Absolute [0.30-1.00 10*3] 0.82 10*3 (12/07/14 9:14 AM) Eos Absolute [0.00-0.50 10*3] 0.27 10*3 (12/07/14:14 AM) Baso Absolute [0.00-0.20 10*3] 0.03 10*3 (12/07/14 9:14 AM) Chemistry Most recent to oldest [Reference Range]: 1 Sodium Lvl [135-144 mEq/L] 137 mEq/L (12/07/14:14 AM) Potassium Lvl [3.5-5.2 mEq/L] 3.9 mEq/L (12/07/14 9:14 AM) Chloride [99-111 mEq/L] 101 mEq/L (12/07/14:14 AM) CO2 [22-31 mEq/L] 28 mEq/L (12/07/14:14 AM) AGAP [3-20] 8 (12/07/14 9:14 AM) BUN [10-20 mg/dL] 22 mg/dL *HI* (12/07/14:14 AM) Glucose Lvl [70-99 mg/dL] 109 mg/dL *HI* (12/07/14 9:14 AM) Creatinine Lvl [0.57-1.11 mg/dL] 0.68 mg/dL (12/07/14 9:14 AM) eGFR [>60 mL/min] >60 mL/min 1 (12/07/14 9:14 AM) Calcium Lvl [8.9-10.5 mg/dL] 9.6 mg/dL (12/07/14 9:14 AM) Albumin Lvl [3.5-5.0 gm/dL] 3.2 gm/dL *LOW* (12/07/14: AM) Total Protein [6.4-8.3 gm/dL] 6.0 gm/dL *LOW* (12/07/14: AM) Globulin [1.8-4.0 gm/dL] 2.8 gm/dL (12/07/14:14 AM) ALT [0-55 U/L] 25 U/L (12/07/14:14 AM) AST [5-34 U/L] 20 U/L (12/07/14 9:14 AM) Alk Phos [40-150 U/L] 103 U/L (12/07/14:14 AM) Bili Total [0.2-1.2 mg/dL] 0.2 mg/dL (12/07/14 9:14 AM) T4 Free [0.7-1.5 ng/dL] 0.9 ng/dL (12/07/14: AM) TSH with Reflex Free T4 [0.35-4.94] 5.78 *HI* (12/07/14 9:14 AM) Hgb A1c [4.1-5.6 %] 13.9 % *HI* (12/07/14 9:14 AM) eAvg Glucose 352.2 mg/dL (12/07/14 9:14 AM) 1Result Comment: Multiply eGFR results by 1.21 for race.Urinalysis Most recent to oldest [Reference Range]: 1 UA Color Yellow (12/07/14 9:10 AM) UA Appear Clear (12/07/14 9:10 AM) UA pH [5.0-8.0] 5.0 (12/07/14 9:10 AM) UA Leuk Est [Negative] Negative (12/07/14 9:10 AM) UA Nitrite [Negative] Negative (12/07/14 9:10 AM) UA Protein [Negative] Pos 3+ *ABN* (12/07/14 9:10 AM) UA Glucose [Negative] Pos 3+ *ABN* (12/07/14 9:10 AM) UA Ketones [Negative] Negative (12/07/14 9:10 AM) UA Urobilinogen [<1.0 mg/dL] 0.2 mg/dL (12/07/14 9:10 AM) UA Bili [Negative] Negative (12/07/14 9:10 AM) UA Blood [Negative] Pos 2+ *ABN* (12/07/14 9:10 AM) UA Spec Grav [1.003-1.030] 1.028 (12/07/14 9:10 AM) Type Voided (12/07/14 9:10 AM) UA WBC [0-4] 5-10 *ABN* (12/07/14 9:10 AM) UA RBC [0-4] 0-4 (12/07/14 9:10 AM) Epithelial Cells 5-10 (12/07/14 9:10 AM) UA Hyal Cast [0-3] 1-3 (12/07/14 9:10 AM) UA Yeast Present *ABN* (12/07/14 9:10 AM) UA Mucous Present (12/07/14 9:10 AM) Immunizations Vaccine Date Refusal Reason tetanus/diphth/pertuss (Tdap) adult/adol 06/09/13 Procedures Procedure Date Related Diagnosis Body Site Collection of venous blood by venipuncture 12/07/14 Carpal tunnel release Cataract extraction section Cholecystectomy [...] 02/19/2006 Document Revised: 05/13/2012 Document Reviewed: 10/13/2011 [facility] Patient Information 2015 [employer]. This information is not intended to replace advice given to you by your health care provider. Make sure you discuss any questions you have with your health care provider. Cataract A cataract is a clouding of [...] 02/19/2006 Document Revised: 05/13/2012 Document Reviewed: 10/13/2011 [facility] Patient Information [facility] [employer] [facility]. This information is not intended to replace advice given to you by your health care provider. Make sure you discuss any questions you have with your health care provider. No follow up information was provided. Extracted from: Title: Office Visit Note Author: Ted Francisco MD Date: 12/07/14 Assessment/Plan Adult-onset obesity Diet and exercise as tolerated and feasible. Consider medication when interested. Bilateral cataracts Seeing the change control specialist Dr. Akbar at [facility]. Coronary artery disease This issue is stable and appropriate refills, lab, and f/u have been discussed. Diabetes Lab pending. Resume meds and checkbgms. The patient was notified for the need for regular quarterly f/u of their diabetes. Further any pertinent medication, supplies, etc were refilled . Additionally, they are to have annual eye exams, foot exams, and regular care. Hypertension This issue is stable and appropriate refills, lab, and f/u have been discussed. The patient reports their blood pressure has been stable at home and is not having any significant or related problems. There has been no chest pain, chest pressure, soa/durand. Addendum by Ted Francisco MD on The ekg had low voltage presumably from the December 07, 2014 08:57:20 CDT patient's body habitus. Otherwise no acute changes were seen. NSR on EKG.
--- OUTSIDE RECORDS SUMMARY | 2016-12-19 10:16 | External Medical Summary | Referral Summary ---
:1955 Author Organization [facility] [address] [place] [address] Care Team Providers Name Role Phone Ted Francisco Primary Care Physician Encounter VC Date(s): 04/14/16 - 04/14/16 [facility] [address] [place] [phone] [place] Discharge Diagnosis: Diabetic neuropathy Discharge Diagnosis: Diabetes Discharge Diagnosis: Depression Discharge Diagnosis: Asthma Discharge Diagnosis: Coronary artery disease Discharge Diagnosis: Adult hypothyroidism Discharge Diagnosis: Hypertension Discharge Diagnosis: Adult-onset obesity Discharge Diagnosis: Hyperlipidemia Discharge Diagnosis: At risk for obstructive sleep apnea Discharge Disposition: 01-Home or Self Care Attending Physician: Ayala Echevarria PA-C Admitting Physician: Ayala Echevarria PA-C Vital Signs Most recent to oldest [Reference Range]: 1 Temperature Tympanic [36.6-38.1 degC] 36.2 degC *LOW* (04/14/16 8:13 AM) Peripheral Pulse Rate [60-100 bpm] 81 bpm (04/14/16 8:13 AM) Blood Pressure [90-140/60-90 mmHg] 152/88 mmHg *HI* (04/14/16 8:13 AM) SpO2 95 % (04/14/16 8:13 AM) Problem List Condition Effective Dates Status Health Status Informant Adult-onset obesity(Confirmed) Active Asthma(Confirmed) Active Bilateral cataracts(Confirmed) Active Coronary artery disease(Confirmed) Active Diabetes(Confirmed) Active Diabetic neuropathy(Confirmed) Active Edema(Confirmed) Active Hernia, ventral(Confirmed) Active Hyperlipidemia(Confirmed) Active Hypertension(Confirmed) Active Adult hypothyroidism(Confirmed) Active Depression(Confirmed) Active Allergies, Adverse Reactions, Alerts Substance Reaction Severity Status erythromycin Hives Active Erythromycin Base Hives Active sulfamethoxazole Active trimethoprim Active Medications aspirin 0 Refill(s) Start Date: 01/08/14 Status: OrderedBasaglar Kwikpen Basaglar Kwikpen, See Instructions, Inject 53u SQ daily, # 20 mL, 5 Refill(s), Pharmacy: [facility], To replace Toufrancescoo, Inject 53u SQ daily Start Date: 04/14/16 Status: OrderedBD pen needles BD pen needles, See Instructions, 31 g x 8 mm (short). Uses 5 daily. Box of 100. , # 4 boxes, 11 Refill(s), Pharmacy: [facility], 31 g x 8 mm (short). Uses 5 daily. Box of 100. Start Date: 04/14/16 Status: Orderedcitalopram 20 mg oral tablet 20 mg 1 tabs, Oral, Daily, # 90 tabs, 1 Refill(s), Pharmacy: [facility], 1 tabs Oral Daily Start Date: 02/25/16 Status: Orderedgabapentin 100 mg oral capsule 100 mg 1 caps, Oral, TID, # 90 caps, 3 Refill(s), Pharmacy: [facility], 1 caps Oral TID Start Date: 01/11/16 Status: OrderedhydroCHLOROthiazide 25 mg oral tablet 25 mg 1 tabs, Oral, Daily, # 90 tabs, 1 Refill(s), Pharmacy: [facility], 1 tabs Oral Daily Start Date: 02/25/16 Status: OrderedMisc Medication eye drops for right eye glaucoma, 0 Refill(s) Start Date: 02/09/15 Status: OrderedNorvasc 5 mg oral tablet 5 mg 1 tabs, Oral, Daily, # 90 tabs, 3 Refill(s), Pharmacy: [facility], 1 tabs Oral Daily Start Date: 11/05/15 Status: OrderedNovoLOG FlexPen 100 units/mL subcutaneous solution 30 units, SubCutaneous, TIDAC, # 90 mL, 5 Refill(s), Pharmacy: [facility], Toreplace Humalog, 30 units SubCutaneous TIDAC Start Date: 04/14/16 Status: OrderedONE TOUCH ULTRA TEST STRIPS ONE TOUCH ULTRA TEST STRIPS, See Instructions, USE 4 TIMES DAILY. Box of 100 strips. DX: E 11.9, # 4 boxes, 11 Refill(s), Pharmacy: [facility], USE 4 TIMES DAILY. Box of 100 strips. DX: E 11.9 Start Date: 04/14/16 Status: OrderedProAir HFA 90 mcg/inh inhalation aerosol 180 mcg 2 puffs, Inhalation, q4hr, # 1 Each, 2 Refill(s), Pharmacy: [facility] Start Date: 02/25/16 Status: OrderedSynthroid 88 mcg (0.088 mg) oral tablet 88 mcg 1 tabs, Oral, Daily, # 90 tabs, 1 Refill(s), Pharmacy: [facility], Note dose increase, 1 tabs Oral Daily Start Date: 02/25/16 Status: OrderedUnivasc 15 mg oral tablet 15 mg 1 tabs, Oral, BID, # 180 tabs, 1 Refill(s), Pharmacy: [facility], 1 tabs Oral BID Start Date: 10/19/15 Status: OrderedVictoza 18 mg/3 mL subcutaneous solution 1.8 mg, SubCutaneous, Daily, # 9 mL, 5 Refill(s), Pharmacy: [facility], Note dose increase, 1.8 mg SubCutaneous Daily Start Date: 04/14/16 Status: OrderedZocor 20 mg oral tablet 20 mg 1 tabs, Oral, Bedtime (once a day), # 90 tabs, 3 Refill(s), Pharmacy: [facility], 1 tabs Oral Bedtime (once a day) Start Date: 11/05/15 Status: Ordered Results Chemistry Most recent to oldest [Reference Range]: 1 Sodium Lvl [135-144 mEq/L] 138 mEq/L (04/14/16 9:04 AM) Potassium Lvl [3.5-5.2 mEq/L] 4.6 mEq/L (04/14/16 9:04 AM) Chloride [99-111 mEq/L] 106 mEq/L (04/14/16 9:04 AM) CO2 [22-31 mEq/L] 25 mEq/L (04/14/16 9:04 AM) AGAP [3-20] 7 (04/14/16 9:04 AM) BUN [10-20 mg/dL] 21 mg/dL *HI* (04/14/16 9:04 AM) Glucose Lvl [70-99 mg/dL] 164 mg/dL *HI* (04/14/16 9:04 AM) Creatinine Lvl [0.57-1.11 mg/dL] 1.15 mg/dL *HI* (04/14/16 9:04 AM) eGFR [>60 mL/min] 48 mL/min 1 *ABN* (04/14/16 9:04 AM) Calcium Lvl [8.4-10.2 mg/dL] 9.0 mg/dL 2 (04/14/16 9:04 AM) Albumin Lvl [3.5-5.0 gm/dL] 3.0 gm/dL *LOW* (04/14/16:04 AM) Total Protein [6.0-7.6 gm/dL] 5.9 gm/dL *LOW* (04/14/16:04 AM) Globulin [1.8-4.0 gm/dL] 2.9 gm/dL (04/14/16 9:04 AM) ALT [0-55 U/L] 18 U/L (04/14/16 9:04 AM) AST [5-34 U/L] 21 U/L (04/14/16 9:04 AM) Alk Phos [40-150 U/L] 116 U/L (04/14/16 9:04 AM) Bili Total [0.2-1.2 mg/dL] 0.2 mg/dL (04/14/16 9:04 AM) Chol [0-199 mg/dL] 321 mg/dL *HI* (04/14/16 9:04 AM) Trig [0-149 mg/dL] 145 mg/dL (04/14/16 9:04 AM) HDL [40-84 mg/dL] 60 mg/dL (04/14/16 9:04 AM) LDL [0-130 mg/dL] 232 mg/dL *HI* (04/14/16 9:04 AM) VLDL Cholesterol [0-28 mg/dL] 29 mg/dL *HI* (04/14/16 9:04 AM) Cardiac Risk [0.0-5.0] 5.4 *HI* (04/14/16 9:04 AM) T4 Free [0.7-1.5 ng/dL] 0.9 ng/dL (04/14/16 9:04 AM) TSH with Reflex Free T4 [0.35-4.94] 6.97 *HI* (04/14/16 9:04 AM) Hgb A1c [4.1-5.6 %] 10.5 % *HI* (04/14/16 9:04 AM) eAvg Glucose 254.7 mg/dL (04/14/16 9:04 AM) 1Result Comment: Multiply eGFR results by 1.21 for race.2Result Comment: Please note reference range change effective 04/07/2016. Immunizations Given and Recorded Vaccine Date Status Refusal Reason tetanus/diphth/pertuss (Tdap) adult/adol 06/09/13 Recorded influenza virus vaccine, inactivated1 01/11/16 Given pneumococcal 23-polyvalent vaccine 01/11/16 Given 1Result Comment: [facility] Procedures Procedure Date Related Diagnosis Body Site Collection of venous blood by venipuncture 04/14/16 COLORECTAL CANCER SCREENING; COLONOSCOPY ON 06/24/15 INDIVIDUAL NOT MEETING CRITERIA FOR HIGH RISK1 Cholecystectomy 1996 Carpal tunnel release Cataract extraction section 1April 2015 normal colonoscopy, repeat in 10 years Social History Social History Type Response Smoking Status Never smoker Assessment and Plan Extracted from: Title: Office Visit Note- Med ck Author: Ayala Echevarria PA-C Date: 04/14 Assessment/Plan [id number] minutes were spent with the patient, and >50% of this time was spent in counseling. Adult hypothyroidism Will check TSH today. Adjust Synthroid as needed. Ordered: Office Visit Level 5 Est 50394 Adult-onset obesity Will increase Victoza to 1.8mg at this time.Sample pengiven, and refills sent to mail order pharmacy. Work on increasing exercise andhealthy diet habits. Ordered: liraglutide, 1.8 mg, SubCutaneous, Daily, # 9 mL, 5 Refill(s), Pharmacy: [facility], Note dose increase, 1.8 mg SubCutaneous Daily Office Visit Level 5 Est 45765 Asthma Stable at this time.HasAlbuterol. Ordered: Office Visit Level 5 Est 73008 At risk for obstructive sleep apnea D/w pt that Iwould like to get a sleep test on her at this time to evaluate for MOI. Pt is agreeable. Ordered: Office Visit Level 5 Est 37353 Coronary artery disease Continue on current medications. 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 May need stress test. Ordered: Office Visit Level 5 Est 50175 Depression Pt is having some issues with increased depression, but has good support system at this time. Will continue with Celexa at [facility]. Ordered: Office Visit Level 5 Est 42689 Diabetes Will check A1C today. I would like her to increase basal insulin to 53 units at this time. Sent new script for Basaglar to replace Toujeo, and sample pen was given. Stay on same dose of mealtime insu yue, however will need to switch from Humalog to Novolog. Ordered: insulin aspart, 30 units, SubCutaneous, TIDAC, # 90 mL, 5 Refill(s), Pharmacy: [facility], To replace Humalog, 30 units SubCutaneous TIDAC liraglutide, 1.8 mg, SubCutaneous, Daily, # 9 mL, 5 Refill(s), Pharmacy: [facility], Note dose increase, 1.8 mg SubCutaneous Daily Misc Medication, ONE TOUCH ULTRA TEST STRIPS, See Instructions, USE 4 TIMES DAILY. Box of 100 strips. DX: E 11.9, # 4 boxes, 11 Refill(s), Pharmacy: [facility], USE 4 TIMES DAILY. Box of 100 strips. DX: E 11.9 Misc Medication, BD pen needles, See Instructions, 31 g x 8 mm (short). Uses 5 daily. Box of 100., # 4 boxes, 11 Refill(s), Pharmacy: [facility], 31 g x 8 mm (short). Uses 5 daily. Box of 100. Misc Medication, Basaglar Aniceto, See Instructions, Inject 53u SQ daily, # 20 mL, 5 Refill(s), Pharmacy: [facility], To replace Toujeo, Inject 53u SQ daily Hemoglobin A1c Office Visit Level 5 Est 94994 Diabetic neuropathy Continue on Gabapentin. Ordered: Office Visit Level 5 Est 28808 Hyperlipidemia Will check lipids today. I am thinking that she will need to increase the Zocor from just 20mg. May need to change to different statin if needing high dose. Ordered: Office Visit Level 5 Est 28307 Hypertension BP iselevatedtoday.She does have pain from her JOSÉ today. Monitor at home. May needto adjust medications if continues to increase. Evaluate for sleepapnea. Ordered: Office Visit Level 5 Est 04525
--- OUTSIDE RECORDS SUMMARY | 2016-12-19 10:16 | External Medical Summary | Referral Summary ---
:1955 Author Organization [facility] [address] [place] [address] Care Team Providers Name Role Phone Ted Francisco Primary Care Physician Encounter VC Date(s): 10/19/15 - 10/19/15 [facility] [address] [place] [phone]- Discharge Diagnosis: Diabetes Discharge Diagnosis: Adult hypothyroidism Discharge Diagnosis: Adult-onset obesity Discharge Diagnosis: Depression Discharge Diagnosis: Hypertension Discharge Diagnosis: Asthma Discharge Disposition: 01-Home or Self Care Attending Physician: Ayala Echevarria PA-C Admitting Physician: Ayala Echevarria PA-C Vital Signs Most recent to oldest [Reference Range]: 1 Temperature Tympanic [36.6-38.1 degC] 36.4 degC *LOW* (10/19/15 9:16 AM) Peripheral Pulse Rate [60-100 bpm] 72 bpm (10/19/15 9:16 AM) Respiratory Rate [14-20 br/min] 18 br/min (10/19/15 9:16 AM) Blood Pressure [90-140/60-90 mmHg] 162/78 mmHg *HI* (10/19/15 9:16 AM) Problem List Condition Effective Dates Status Health Status Informant Adult-onset obesity(Confirmed) Active Asthma(Confirmed) Active Bilateral cataracts(Confirmed) Active Coronary artery disease(Confirmed) Active Diabetes(Confirmed) Active Edema(Confirmed) Active Hernia, ventral(Confirmed) Active Hypertension(Confirmed) Active Adult hypothyroidism(Confirmed) Active Depression(Confirmed) Active Allergies, Adverse Reactions, Alerts Substance Reaction Severity Status erythromycin Hives Active Erythromycin Base Hives Active sulfamethoxazole Active trimethoprim Active Medications aspirin 0 Refill(s) Start Date: 01/08/14 Status: OrderedBD pen needles BD pen needles, See Instructions, 31 g x 8 mm (short). Uses 4 daily. Box of 100. , # 4 boxes, 1 Refill(s), Pharmacy: [facility], 31 g x 8 mm (short). Uses 4 daily. Box of 100. Start Date: 10/19/15 Status: Orderedcitalopram 20 mg oral tablet 20 mg 1 tabs, Oral, Daily, # 90 tabs, 1 Refill(s), Pharmacy: [place] [id number], 1 tabs Oral Daily Start Date: 10/19/15 Status: Orderedgabapentin 100 mg oral capsule 100 mg 1 caps, Oral, TID, # 90 caps, 3 Refill(s), Pharmacy: [place] [id number], 1 caps Oral TID Start Date: 08/20/15 Status: OrderedHumaLOG KwikPen 100 units/mL subcutaneous solution 30 units, SubCutaneous, TIDAC, # 10 mL, 6 Refill(s), Pharmacy: [facility], 30units SubCutaneous TIDAC Start Date: 10/19/15 Status: Orderedhydrochlorothiazide 25 mg oral tablet 25 mg 1 tabs, Oral, Daily, # 90 tabs, 1 Refill(s), Pharmacy: [facility], 1 tabs Oral Daily Start Date: 10/19/15 Status: OrderedMisc Medication eye drops for right eye glaucoma, 0 Refill(s) Start Date: 02/09/15 Status: OrderedMobic 7.5 mg oral tablet 7.5 mg 1 tabs, Oral, Daily, # 30 tabs, 0 Refill(s), Pharmacy: [id number], 1 tabs Oral Daily Start Date: 07/09/15 Status: OrderedONE TOUCH ULTRA TEST STRIPS ONE TOUCH ULTRA TEST STRIPS, See Instructions, USE 4 TIMES DAILY. Box of 100 strips. DX: E 11.9, # 4 boxes, 1 Refill(s), Pharmacy: [facility], USE 4 TIMES DAILY. Box of 100 strips. DX: E 11.9 Start Date: 10/19/15 Status: OrderedProAir HFA 90 mcg/inh inhalation aerosol 180 mcg 2 puffs, Inhalation, q4hr, # 1 Each, 2 Refill(s), Pharmacy: [place] [id number] Start Date: 10/19/15 Status: OrderedSynthroid 88 mcg (0.088 mg) oral tablet 88 mcg 1 tabs, Oral, Daily, # 90 tabs, 1 Refill(s), Pharmacy: [facility], Note dose increase, 1 tabs Oral Daily Start Date: 10/19/15 Status: OrderedToujeo SoloStar 300 units/mL subcutaneous solution 45 units, SubCutaneous, Bedtime (once a day), # 9 Each, 1 Refill(s), Pharmacy: [facility], 45 units SubCutaneous Bedtime (once a day), x30 days Start Date: 10/19/15 Stop Date: 12/18/15 Status: OrderedUnivasc 15 mg oral tablet 15 mg 1 tabs, Oral, BID, # 180 tabs, 1 Refill(s), Pharmacy: [facility], 1 tabs Oral BID Start Date: 10/19/15 Status: Ordered Results No data available for [...] Smoking Status Never smoker Assessment and Plan No data available for this section
--- OUTSIDE RECORDS SUMMARY | 2016-12-19 10:16 | External Medical Summary | Referral Summary ---
:1955 Author Organization [facility] [address] [place] [address] Care Team Providers Name Role Phone Ted Francisco Primary Care Physician Encounter VC Date(s): 02/11/15 - 02/11/15 [facility] [address] [place] [id number]- Discharge Diagnosis: Diabetes Discharge Diagnosis: Pre-op examination Discharge Diagnosis: Adult hypothyroidism Discharge Diagnosis: Hypertension Discharge Diagnosis: Bilateral cataracts Discharge Disposition: 01-Home or Self Care Attending Physician: Ayala Echevarria PA-C Admitting Physician: Ayala Echevarria PA-C Vital Signs Most recent to oldest [Reference Range]: 1 Peripheral Pulse Rate [60-100 bpm] 83 bpm (02/11/15 2:17 PM) Blood Pressure [90-140/60-90 mmHg] 172/94 mmHg *HI* (02/11/15 2:17 PM) SpO2 94 % (02/11/15 2:17 PM) Problem List Condition Effective Dates Status [...] , # 4 boxes, 1 Refill(s), Pharmacy: [facility], 31 g x 8 mm (short). Uses 4 daily. Box of 100. Start Date: 12/17/14 Status: Orderedhydrochlorothiazide 25 mg oral tablet 25 mg 1 tabs, Oral, Daily, # 90 tabs, 0 Refill(s), Pharmacy: [facility] pharmacy, 1 tabs Oral Daily Start Date: [...] 11.9, # 4 boxes, 1 Refill(s), Pharmacy: [facility]/pharmacy, USE 4 TIMES DAILY. Box of 100 strips. DX: E 11.9 Start Date: 12/17/14 Status: OrderedProAir HFA 90 mcg/inh inhalation aerosol 2 puffs, Inhalation, q4hr, # 1 Each, 2 Refill(s), Pharmacy: [id number] Start Date: 05/28/14 Status: OrderedSynthroid 75 mcg (0.075 mg) oral tablet 75 mcg 1 tabs, Oral, Daily, # 60 tabs, 0 Refill(s), Pharmacy: [facility], Note new dose,1 tabs Oral Daily Start Date: 02/11/15 Status: OrderedToujeo SoloStar 300 units/mL subcutaneous solution 45 units, SubCutaneous, Bedtime (once a day), # 4 mL, 0 Refill(s), samples given to patient (Rx) Start Date: 02/09/15 Stop Date: 03/11/15 Status: OrderedUnivasc 15 mg oral tablet 15 mg 1 tabs, Oral, Daily, # 90 tabs, 1 Refill(s), Pharmacy: [facility], 1 tabs Oral Daily Start Date: [...] Patient Education Author: Ayala Echevarria PA-C Date: 02/11/15 Family Medicine Hypertension Hypertension, commonly called high [...] not mean that you need treatment. If one blood pressure reading is high, ask your health care provider about having it checked again. TREATMENT Treating high blood pressure includes making lifestyle changes and possibly taking medicine. Living a healthy lifestyle can help lower high blood pressure. You may need to change some of your habits. Lifestyle changes may include: Following the DASH diet. This diet is high in fruits, vegetables, and whole grains. It is low in salt, red meat, and added sugars. Getting at least 2 hours of brisk physical activity every week. Losing weight if necessary. Not smoking. Limiting alcoholic beverages. Learning ways to reduce stress. If lifestyle changes are not enough to get your blood pressure under control , your health care provider may prescribe medicine. You may need to take more than one. Work closely with your health care provider to understand the risks and benefits. HOME CARE INSTRUCTIONS Have your blood pressure rechecked as directed by your health care provider. Take medicines only as directed by your health care provider. Follow the directions carefully. Blood pressure medicines must be taken as prescribed. The medicine does not work as well when you skip doses. Skipping doses also puts you at [...] doing well or get worse. Document Released: 02/19/2006 Document Revised: 07/06/2014 Document Reviewed: 12/12/2013 [facility] Patient Information 2015 [facility]. This information is not intended to replace advice given to you by your health care provider. Make sure you discuss any questions you have with your health care provider. Hypothyroidism The thyroid is a large gland located in the lower front of your neck. The thyroid gland helps control metabolism. Metabolism is how your body handles food. It controls metabolism with the hormone thyrox ine. When this gland is underactive (hypothyroid), it produces too little hormone. CAUSES These include: Absence or destruction of thyroid tissue. Goiter due to iodine deficiency. Goiter due to medications. Congenital defects (since ). Problems with the pituitary. This causes a lack of TSH (thyroid stimulating hormone). This hormone tells the thyroid to returned case inspector more hormone. SYMPTOMS Lethargy (feeling as though you have no energy) Cold intolerance Weight gain (in spite of normal food intake) Dry skin Coarse hair Menstrual irregularity (if severe, may lead to infertility) Slowing of thought processes Cardiac problems are also caused by insufficient amounts of thyroid hormone. Hypothyroidism in the is cretinism, and is an extreme form. It is important that this form be treated adequately and immediately or it will lead rapidly to retarded physical and mental development. DIAGNOSIS To prove hypothyroidism, your caregiver may do blood tests and ultrasound tests. Sometimes the signs are hidden. It may be necessary for your caregiver to watch this illness with blood tests either before or after diagnosis and treatment. TREATMENT Low levels of thyroid hormone are increased by using synthetic thyroid hormone. This is a safe, effective treatment. It usually takes about four weeks to gain the full effects of the medication. After y ou have the full effect of the medication, it will generally take another four weeks for problems to leave. Your caregiver may start you on low doses. If you have had heart problems the dose may be grad ually increased. It is generally not an emergency to get rapidly to normal. HOME CARE INSTRUCTIONS Take your medications as your caregiver suggests. Let your caregiver know of any medications you are taking or start taking. Your caregiver will help you with dosage schedules. As your condition improves, your dosage needs may increase. It will be necessary to have continuing blood tests as suggested by your caregiver. Report all suspected medication side effects to your caregiver. SEEK MEDICAL CARE IF: Seek medical care if you develop: Sweating. Tremulousness (tremors). Anxiety. Rapid weight loss. Heat intolerance. Emotional swings. Diarrhea. Weakness. SEEK IMMEDIATE MEDICAL CARE IF: You develop chest pain, an irregular heart beat (palpitations), or a rapid heart beat. MAKE SURE YOU: Understand these instructions. Will watch your condition. Will get help right away if you are not doing well or get worse. Document Released: 02/19/2006 Document Revised: 05/13/2012 Document Reviewed: 10/09/2008 [employer] Patient Information 2015 [email or web address]. This information is not intended to replace advice given to you by your health care provider. Make sure you discuss any questions you have with your health care provider. Ophthalmology Cataract A cataract is a clouding [...] 02/19/2006 Document Revised: 05/13/2012 Document Reviewed: 10/13/2011 [facility] Patient Information 2015 [employer] [facility]. This information is not intended to replace advice given to you by your health care provider. Make sure you discuss any questions you have with your health care provider. Type 2 Diabetes Mellitus Type 2 diabetes [...] more of the following primary risk factors: Overweight. An inactive lifestyle. A history of consistently eating high-calorie foods. Maintaining a normal weight and regular physical activity can reduce the chance of developing type 2 diabetes. SYMPTOMS A person with type 2 diabetes may not show symptoms initially. The symptoms of type 2 diabetes appear slowly. The symptoms include: Increased thirst (polydipsia). Increased urination (polyuria). Increased urination during the night (nocturia). Weight loss. This weight loss may be rapid. Frequent, recurring infections. Tiredness (fatigue). Weakness. Vision [...] you eat with each meal or snack. The treatment goal is to maintain the before meal [place] [address] mg/dL. HOME CARE INSTRUCTIONS Have your hemoglobin A1c [...] but need to be included in your diet . Carbohydrates provide vitamins, minerals, and fiber which [...] skipping meals, during or after intense exercise, an d during sleep. Hypoglycemia symptoms can include: Tremors or shakes. Decreased ability to concentrate. Sweating. Increased heart rate. Headache. Dry mouth. Hunger. Irritability. Anxiety. Restless sleep. Altered speech or coordination. Confusion. Treat hypoglycemia promptly. If you are alert and able to safely swallow, follow the 15:15 rule: Take 1520 grams of rapid-acting glucose or carbohydrate. Rapid-acting options include glucose gel, glucose tablets, or [...] very thirsty and urinating more frequently than usual , which are early signs of hyperglycemia. An [...] eating food. Talk with your health care prov ider whether alcohol is safe for you. Tell [...] health care provider should be done annually. [place] your teeth and gums at least twice a day and floss at least once a day. Follow up with your dentist regularly. Share your diabetes management plan with your workplace or school. Stay up-to-date with immunizations. It is recommended that people with diabetes who are over 65 years old get the pneumonia vaccine. In some cases, two separate shots may be given. Ask your health care provider if your pneumonia vaccination is up-to-date. Learn to manage stress. Obtain ongoing diabetes education and support as needed. Participate in or seek rehabilitation as needed to maintain or improve independence and quality of life. Request a physical or occupational therapy referral if you are having foot or hand numbness, or difficulties with grooming, dressing, eating, or [...] doing well or get worse. Document Released: 02/19/2006 Document Revised: 07/06/2014 Document Reviewed: 09/17/2012 [facility] Patient Information 2015 [facility], [facility]. This information is not intended to replace advice given to you by your health care provider. Make sure you discuss any questions you have with your health care provider. No follow up information was provided. Extracted from: Title: Office Visit Note- Pre-op Author: Ayala Echevarria PA-C Date: 12/17 Assessment/Plan Adult hypothyroidism Will increase levothyroxine to 75mcg daily, and recheck TSH in 6 weeks. Ordered: Office Visit Level 4 Est 54382 Bilateral cataracts I believe the pt should be cleared for surgery. She has done well to bring her sugars down. Lab and ECG sent to Dr. Akbar's office. She is scheduled for surgery on 02/17/15. Ordered: Office Visit Level 4 Est 75838 Diabetes She has done very well on her medications and diet. Continue for now. Recheck in 90 days. Ordered: Office Visit Level 4 Est 78784 Hypertension Her BP was a littleelevated today, but she contributesto being a little "stressed". I recommended she continue to check BP at home and report if consistently over 140's. She is asx today in clinic. Pre-op examination As stated above,pt is cleared for her cataractsurgery with on 02/17/15. Ordered: Office Visit Level 4 Est 31746 Orders: levothyroxine, 75 mcg 1 tabs, Oral, Daily, # 60 tabs, 0 Refill(s), Pharmacy: [id number], Note new dose, 1 tabs Oral Daily
--- OUTSIDE RECORDS SUMMARY | 2016-12-19 10:16 | External Medical Summary | Referral Summary ---
:1955 Author Organization [facility] [address] [place] [address] Care Team Providers Name Role Phone Ted Francisco Primary Care Physician Encounter VC Date(s): 09/22/15 - 09/22/15 [facility] [address] [place] [id number]- Discharge Diagnosis: Depression with anxiety Discharge Diagnosis: Acute stress reaction Discharge Diagnosis: Adult situational stress disorder Discharge Disposition: 01-Home or Self Care Attending Physician: Pooja Evans APRN Admitting Physician: Pooja Evans APRN Vital Signs Most recent to oldest [Reference Range]: 1 Temperature Tympanic [36.6-38.1 degC] 36.7 degC (09/22/15 8:20 AM) Peripheral Pulse Rate [60-100 bpm] 70 bpm (09/22/15 8:20 AM) Blood Pressure [90-140/60-90 mmHg] 126/80 mmHg (09/22/15 8:20 AM) SpO2 95 % (09/22/15 8:20 AM) Problem List Condition Effective Dates Status [...] , # 4 boxes, 1 Refill(s), Pharmacy: [facility]/pharmacy, 31 g x 8 mm (short). Uses 4 daily. Box of 100. Start Date: 12/17/14 Status: Orderedcitalopram 10 mg oral tablet 10 mg 1 tabs, Oral, Daily, # 90 tabs, 0 Refill(s), Pharmacy: [facility], 1 tabs Oral Daily Start Date: 09/03/15 Status: Orderedgabapentin 100 mg oral capsule 100 mg 1 caps, Oral, TID, # 90 caps, 3 Refill(s), Pharmacy: [facility], 1 caps Oral TID Start Date: 08/20/15 Status: OrderedHumaLOG KwikPen 100 units/mL subcutaneous solution 30 units, SubCutaneous, TIDAC, # 10 mL, 6 Refill(s), Pharmacy: [facility], 30units SubCutaneous TIDAC Start Date: 04/14/15 Status: Orderedhydrochlorothiazide 25 mg oral tablet 25 mg 1 tabs, Oral, Daily, # 90 tabs, 1 Refill(s), Pharmacy: [facility], 1 tabs Oral Daily Start Date: 04/14/15 Status: OrderedMisc Medication eye drops for right eye glaucoma, 0 Refill(s) Start Date: 02/09/15 Status: OrderedMobic 7.5 mg oral tablet 7.5 mg 1 tabs, Oral, Daily, # 30 tabs, 0 Refill(s), Pharmacy: [facility], 1 tabs Oral Daily Start Date: 07/09/15 Status: OrderedNorco 7.5 mg-325 mg oral tablet 1 tabs, Oral, q12hr, as needed for pain, must last 30 days, # 60 tabs, 0 Refill( s) Start Date: 06/04/15 Status: OrderedONE TOUCH ULTRA TEST STRIPS ONE TOUCH ULTRA TEST STRIPS, See Instructions, USE 4 TIMES DAILY. Box of 100 strips. DX: E 11.9, # 4 boxes, 1 Refill(s), Pharmacy: [facility], USE 4 TIMES DAILY. Box of 100 strips. DX: E 11.9 Start Date: 04/14/15 Status: OrderedProAir HFA 90 mcg/inh inhalation aerosol 180 mcg 2 puffs, Inhalation, q4hr, # 1 Each, 2 Refill(s), Pharmacy: [facility] Start Date: 04/14/15 Status: OrderedSynthroid 75 mcg (0.075 mg) oral tablet 75 mcg 1 tabs, Oral, Daily, # 90 tabs, 0 Refill(s), Pharmacy: [facility], Note new dose, 1 tabs Oral Daily,x90 days Start Date: 06/04/15 Stop Date: 09/02/15 Status: OrderedToujeo SoloStar 300 units/mL subcutaneous solution 45 units, SubCutaneous, Bedtime (once a day), # 9 Each, 1 Refill(s), Pharmacy: [facility], 45 units SubCutaneous Bedtime (once a day), x30 days Start Date: 05/13/15 Stop Date: 07/12/15 Status: OrderedUnivasc 15 mg oral tablet 15 mg 1 tabs, Oral, BID, # 180 tabs, 1 Refill(s), Pharmacy: [facility], 1 tabs Oral BID Start [...]
--- OUTSIDE RECORDS SUMMARY | 2016-12-19 10:16 | External Medical Summary | Referral Summary ---
:1955 Author Organization [facility] Address [address] [place] [address] [place] [address] Care Team Providers Name Role Phone Ted Francisco Primary Care Physician Encounter VC Date(s): 03/12/15 - 03/12/15 [facility] [address] [place] [address] [place] Discharge Disposition: 01-Home or Self Care Attending Physician: Ted Francisco MD Admitting Physician: Ted Francisco MD Vital Signs Most recent to oldest [Reference Range]: 1 Blood Pressure [90-140/60-90 mmHg] 180/100 mmHg *HI* (03/12/15 8:58 AM) Problem List Condition Effective Dates Status [...] , # 4 boxes, 1 Refill(s), Pharmacy: [facility]/pharmacy, 31 g x 8 mm (short). Uses 4 daily. Box of 100. Start Date: 12/17/14 Status: Ordereddoxycycline hyclate 100 mg oral tablet 100 mg 1 tabs, Oral, BID, X 10 days, # 20 tabs, 0 Refill(s), Pharmacy: [facility], 1 tabs Oral BID,x10 days Start Date: 03/12/15 Stop Date: 03/22/15 Status: Orderedhydrochlorothiazide 25 mg oral tablet 25 mg 1 tabs, Oral, Daily, # 90 tabs, 0 Refill(s), Pharmacy: [facility] pharmacy, 1 tabs Oral Daily Start Date: [...] 11.9, # 4 boxes, 1 Refill(s), Pharmacy: [facility]/pharmacy, USE 4 TIMES DAILY. Box of 100 strips. DX: E 11.9 Start Date: 12/17/14 Status: OrderedProAir HFA 90 mcg/inh inhalation aerosol 2 puffs, Inhalation, q4hr, # 1 Each, 2 Refill(s), Pharmacy: [facility] Start Date: 05/28/14 Status: OrderedSynthroid 75 mcg (0.075 mg) oral tablet 75 mcg 1 tabs, Oral, Daily, # 60 tabs, 0 Refill(s), Pharmacy: [facility], Note new dose,1 tabs Oral Daily Start Date: 02/11/15 Status: OrderedToujeo SoloStar 300 units/mL subcutaneous solution 45 units, SubCutaneous, Bedtime (once a day), # 4 mL, 0 Refill(s), samples given to patient (Rx) Start Date: 02/09/15 Stop Date: 03/11/15 Status: OrderedUnivasc 15 mg oral tablet 15 mg 1 tabs, Oral, Daily, # 90 tabs, 1 Refill(s), Pharmacy: [facility], 1 tabs Oral Daily Start Date: 02/09/15 Status: Ordered Results Hematology Most recent to oldest [Reference Range]: 1 WBC [4.8-10.8 10*3/uL] 9.9 10*3/uL (03/12/15 9:35 AM) RBC [4.00-5.20] 4.02 (03/12/15 9:35 AM) Hgb [12.0-16.0 gm/dL] 12.4 gm/dL (03/12/15 9:35 AM) Hct [37.0-47.0 %] 36.4 % *LOW* (03/12/15 9:35 AM) MCV [82.0-99.0 fL] 90.5 fL (03/12/15 9:35 AM) MCH [27.0-32.0 pg] 30.8 pg (03/12/15 9:35 AM) MCHC [32.0-36.0 gm/dL] 34.1 gm/dL (03/12/15 9:35 AM) RDW [11.5-14.5 %] 12.8 % (03/12/15 9:35 AM) Platelet [150-400 10*3/uL] 361 10*3/uL (03/12/15 9:35 AM) MPV [8.8-14.8 fL] 10.3 fL (03/12/15 9:35 AM) Immature Granulocytes [0.0-1.0 %] 0.3 % (03/12/15 9:35 AM) Neutrophils [51-75 %] 70 % (03/12/15 9:35 AM) Lymphocytes [20-46 %] 19 % *LOW* (03/12/15 9:35 AM) Monocytes [4-11 %] 8 % (03/12/15 9:35 AM) Eosinophils [0-4 %] 3 % (03/12/15 9:35 AM) Basophils [0-2 %] 0 % (03/12/15 9:35 AM) Neutro Absolute [1.90-7.00 10*3] 6.88 10*3 (03/12/15 9:35 AM) Lymph Absolute [0.80-3.30 10*3] 1.87 10*3 (03/12/15 9:35 AM) Cherry Absolute [0.30-1.00 10*3] 0.80 10*3 (03/12/15 9:35 AM) Eos Absolute [0.00-0.50 10*3] 0.27 10*3 (03/12/15 9:35 AM) Baso Absolute [0.00-0.20 10*3] 0.01 10*3 (03/12/15 9:35 AM) Chemistry Most recent to oldest [Reference Range]: 1 Sodium Lvl [135-144 mEq/L] 141 mEq/L (03/12/15 9:35 AM) Potassium Lvl [3.5-5.2 mEq/L] 4.0 mEq/L (03/12/15 9:35 AM) Chloride [99-111 mEq/L] 105 mEq/L (03/12/15 9:35 AM) CO2 [22-31 mEq/L] 25 mEq/L (03/12/15 9:35 AM) AGAP [3-20] 11 (03/12/15 9:35 AM) BUN [10-20 mg/dL] 22 mg/dL *HI* (03/12/15 9:35 AM) Glucose Lvl [70-99 mg/dL] 130 mg/dL *HI* (03/12/15 9:35 AM) Creatinine Lvl [0.57-1.11 mg/dL] 0.75 mg/dL (03/12/15 9:35 AM) eGFR [>60 mL/min] >60 mL/min 1 (03/12/15 9:35 AM) Calcium Lvl [8.9-10.5 mg/dL] 9.6 mg/dL (03/12/15 9:35 AM) Albumin Lvl [3.5-5.0 gm/dL] 3.3 gm/dL *LOW* (03/12/15 9:35 AM) Total Protein [6.4-8.3 gm/dL] 6.3 gm/dL *LOW* (03/12/15 9:35 AM) Globulin [1.8-4.0 gm/dL] 3.0 gm/dL (03/12/15 9:35 AM) ALT [0-55 U/L] 20 U/L (03/12/15 9:35 AM) AST [5-34 U/L] 27 U/L (03/12/15 9:35 AM) Alk Phos [40-150 U/L] 113 U/L (03/12/15 9:35 AM) Bili Total [0.2-1.2 mg/dL] 0.4 mg/dL (03/12/15 9:35 AM) T4 Free [0.7-1.5 ng/dL] 1.1 ng/dL (03/12/15 9:35 AM) TSH with Reflex Free T4 [0.35-4.94] 5.50 *HI* (03/12/15 9:35 AM) Hgb A1c [4.1-5.6 %] 6.9 % *HI* (03/12/15 9:35 AM) eAvg Glucose 151.3 mg/dL (03/12/15 9:35 AM) 1Result Comment: Multiply eGFR results by 1.21 for race. Immunizations Vaccine Date Refusal Reason tetanus/diphth/pertuss (Tdap) adult/adol 06/09/13 Procedures Procedure Date Related Diagnosis Body Site Collection of venous blood by venipuncture 03/12/15 Carpal tunnel release Cataract extraction section Cholecystectomy Social History Social History Type Response Smoking Status Never smoker Assessment and Plan Extracted from: Title: Ambulatory Patient Education Author: Ted Francisco MD Date: No follow up information was provided. Extracted from: Title: Office Visit Note Author: Ted Francisco MD Date: 03/12/15 Assessment/Plan Adult hypothyroidism This issue was reviewed, appears stable, and current therapy continued except as mentioned. Appropriate lab was reviewed from the most recent appropriate entry and lab was order ed if needed in the cpoe/nursing orders, and follow up recommended generally in 90 days and no later then six months. Cellulitis of right foot Rocephin 1 gram IM for abx coverage. Xray and lab pending. Recheck on Wednesday 03/15. To [facility] if worse. Doxycycline 100mg po bid for ten days. The patient has family m embers present who are agreeable with today's plan and have no additional concerns or requests. Father here.45 minutes were utilized in care and coordination for this patient. Greater then 50% of the time was used for counseling and/or coordination of the patients care. Ordered: XR Foot Complete Right Coronary artery disease This issue was reviewed, [...] eye exams, foot exams, and regular care. Reports bgms are 110 now. Lab reviewed. High blood sugar This issue was reviewed, appears stable, and current therapy continued except as mentioned. Appropriate lab was reviewed from the most recent appropriate entry and lab was ordered i f needed in the cpoe/nursing orders, and follow up recommended generally in 90 days and no later then six months. Ordered: CBC w/ Differential Comprehensive Metabolic Panel Hemoglobin A1c TSH with Reflex Free T4 Hypertension This issue was reviewed, appears stable, [...] been no chest pain, chest pressure, soa/durand. Orders: doxycycline, 100 mg 1 tabs, Oral, BID, X 10 days, # 20 tabs, 0 Refill (s), Pharmacy: [facility], 1 tabs Oral BID,x10 days
--- OUTSIDE RECORDS SUMMARY | 2016-12-19 10:16 | External Medical Summary | Referral Summary ---
:1955 Author Organization [facility] [address] [place] [phone] Care Team Providers Name Role Phone Ted Francisco Primary Care Physician Encounter VC Date(s): 01/11/16 - 01/11/16 [facility] [place] [phone] Discharge Diagnosis: Adult-onset obesity Discharge Diagnosis: Immunization due Discharge Diagnosis: Allergic cough Discharge Diagnosis: Hypertension Discharge Diagnosis: Diabetes Discharge Diagnosis: Diabetic neuropathy Discharge Diagnosis: Depression Discharge Diagnosis: Adult hypothyroidism Discharge Diagnosis: Hyperlipidemia Discharge Disposition: 01-Home or Self Care Attending Physician: Ayala Echevarria PA-C Admitting Physician: Ayala Echevarria PA-C Vital Signs Most recent to oldest [Reference Range]: 1 Peripheral Pulse Rate [60-100 bpm] 81 bpm (01/11/16 8:17 AM) Respiratory Rate [14-20 br/min] 18 br/min (01/11/16 8:17 AM) Blood Pressure [90-140/60-90 mmHg] 158/80 mmHg *HI* (01/11/16 8:17 AM) SpO2 96 % (01/11/16 8:17 AM) Problem List Condition Effective Dates Status [...] , # 4 boxes, 1 Refill(s), Pharmacy: [facility], 31 g x 8 mm (short). Uses 4 daily. Box of 100. Start Date: 10/19/15 Status: Orderedcitalopram 20 mg oral tablet 20 mg 1 tabs, Oral, Daily, # 90 tabs, 1 Refill(s), Pharmacy: [id number], 1 tabs Oral Daily Start Date: 10/19/15 Status: Orderedgabapentin 100 mg oral capsule 100 mg 1 caps, Oral, TID, # 90 caps, 3 Refill(s), Pharmacy: [facility], 1 caps Oral TID Start Date: 01/11/16 Status: OrderedHumaLOG KwikPen 100 units/mL subcutaneous solution 30 units, SubCutaneous, TIDAC, # 10 mL, 6 Refill(s), Pharmacy: [facility], 30units SubCutaneous TIDAC Start Date: 11/15/15 Status: Orderedhydrochlorothiazide 25 mg oral tablet 25 mg 1 tabs, Oral, Daily, # 90 tabs, 1 Refill(s), Pharmacy: [facility], 1 tabs Oral Daily Start Date: 10/19/15 Status: OrderedMisc Medication eye drops for right eye glaucoma, 0 Refill(s) Start Date: 02/09/15 Status: OrderedNorvasc 5 mg oral tablet 5 mg 1 tabs, Oral, Daily, # 90 tabs, 3 Refill(s), Pharmacy: [facility], 1 tabs Oral Daily Start Date: 11/05/15 Status: OrderedONE TOUCH ULTRA TEST STRIPS ONE TOUCH ULTRA TEST STRIPS, See Instructions, USE 4 TIMES DAILY. Box of 100 strips. DX: E 11.9, # 4 boxes, 1 Refill(s), Pharmacy: [facility], USE 4 TIMES DAILY. Box of 100 strips. DX: E 11.9 Start Date: 10/19/15 Status: OrderedProAir HFA 90 mcg/inh inhalation aerosol 180 mcg 2 puffs, Inhalation, q4hr, # 1 Each, 2 Refill(s), Pharmacy: [id number] Start Date: 10/19/15 Status: OrderedSynthroid 88 mcg (0.088 mg) oral tablet 88 mcg 1 tabs, Oral, Daily, # 90 tabs, 1 Refill(s), Pharmacy: [facility], Note dose increase, 1 tabs Oral Daily Start Date: 10/19/15 Status: OrderedToujeo SoloStar 300 units/mL subcutaneous solution 48 units, SubCutaneous, Bedtime (once a day), Increased to 50u at bedtime on 02/17, # 9 Each, 1 Refill(s), Pharmacy: [facility], Note dose increase, 48 units SubCutaneous Bedtime (once a day),x30 days Start Date: 11/05/15 Stop Date: 01/04/16 Status: OrderedUnivasc 15 mg oral tablet 15 mg 1 tabs, Oral, BID, # 180 tabs, 1 Refill(s), Pharmacy: [facility], 1 tabs Oral BID Start Date: 10/19/15 Status: OrderedVictoza 18 mg/3 mL subcutaneous solution 1.2 mg, SubCutaneous, Daily, # 6 Each, 3 Refill(s), Pharmacy: [facility], [place] card if needed., 1.2 mg SubCutaneous Daily Start Date: 11/05/15 Status: OrderedZocor 20 mg oral tablet 20 mg 1 tabs, Oral, Bedtime (once a day), # 90 tabs, 3 Refill(s), [facility], 1 tabs Oral Bedtime (once a day) Start Date: 11/05/15 Status: Ordered Results No data available for this section Immunizations Vaccine Date Refusal Reason tetanus/diphth/pertuss (Tdap) adult/adol 06/09/13 influenza virus vaccine, inactivated1 01/11/16 pneumococcal 23-polyvalent vaccine 01/11/16 1Result Comment: Seqirus Procedures Procedure Date Related [...] Med ck Author: Ayala Echevarria PA-C Date: 01/10 Assessment/Plan Adult hypothyroidism Continue on current dose of Synthroid for now. TSH was checked 10/21/15 and was 3.57. Ordered: Office Visit Level 4 Est 77402 Adult-onset obesity D/w pt that she needs to start getting some amount of exercise daily ormost days of the week. May continue on Victoza at this time. Ordered: Office Visit Level 4 Est 25173 Allergic cough Advised pt to try Zyrtec/Claritin/Betsy daily for now. If the cough is not improving, she is to RTC. Ordered: Office Visit Level 4 Est 98171 Depression Seems to be doing well on Celexa at this time. Continue on current dose. Ordered: Office Visit Level 4 Est 26004 Diabetes It is a little too early to recheck A1C. Order was put infor her to check A1C on or after the . Will have her continue on current dose of Toujeo (50u) for now. Continue to adjust the Hu malog if needed. Try to have a goal of about 140a couple hours after eating. Continue Victoza as well. Recheck in clinic in 3 months. Ordered: Hemoglobin A1c Office Visit Level 4 Est 63072 Diabetic neuropathy Doing well on Gabapentin for now. Refills sent. Ordered: gabapentin, 100 mg 1 caps, Oral, TID, # 90 caps, 3 Refill(s), Pharmacy: [facility], 1 caps Oral TID Office Visit Level 4 Est 10505 Hyperlipidemia Continue on Zocor for now.Will recheck Lipids again in 3 months. Ordered: Office Visit Level 4 Est 88018 Hypertension BP was still elevatedsome today. Continues to take HCTZ, Norvasc,and Univasc. May need to increase Norvasc to 10mg at next visit. Monitor BP's at home. Will also check labs next week as well. Ordered: Basic Metabolic Panel Office Visit Level 4 Est 64577 Immunization due Flu shot and Pneumovax 23 given today. Ordered: Office Visit Level 4 Est 46556
--- OUTSIDE RECORDS SUMMARY | 2016-12-19 10:16 | External Medical Summary | Referral Summary ---
:1955 Author Organization [facility] [place] [address] Care Team Providers Name Role Phone Ted Francisco Primary Care Physician Encounter VC Date(s): 09/03/15 - 09/03/15 [facility] [place] [phone] [place] Discharge Disposition: 01-Home or Self Care Attending Physician: Pooja Evans APRN Admitting Physician: Pooja Evans APRN Referring Physician: Ted Francisco MD Vital Signs Most recent to oldest [Reference Range]: 1 Temperature Tympanic [36.6-38.1 degC] 37.3 degC (09/03/15 3:25 PM) Peripheral Pulse Rate [60-100 bpm] 81 bpm (09/03/15 3:25 PM) Blood Pressure [90-140/60-90 mmHg] 128/74 mmHg (09/03/15 3:25 PM) SpO2 94 % (09/03/15 3:25 PM) Problem List Condition Effective Dates Status [...] , # 4 boxes, 1 Refill(s), [facility]acy: [facility], 31 g x 8 mm (short). Uses 4 daily. Box of 100. Start Date: 12/17/14 Status: Orderedcitalopram 10 mg oral tablet 10 mg 1 tabs, Oral, Daily, # 90 tabs, 0 Refill(s), Pharmacy: [facility], 1 tabs Oral Daily Start Date: 09/03/15 Status: Orderedgabapentin 100 mg oral capsule 100 mg 1 caps, Oral, TID, # 90 caps, 3 Refill(s), Pharmacy: [facility], 1 caps Oral TID Start Date: 08/20/15 Status: OrderedHumaLOG KwikPen 100 units/mL subcutaneous solution 30 units, SubCutaneous, TIDAC, # 10 mL, 6 Refill(s), Pharmacy: [facility], 30units SubCutaneous TIDAC Start Date: 04/14/15 Status: Orderedhydrochlorothiazide 25 mg oral tablet 25 mg 1 tabs, Oral, Daily, # 90 tabs, 1 Refill(s), Pharmacy: [facility], 1 tabs Oral Daily Start Date: 04/14/15 Status: OrderedMisc Medication eye drops for right eye glaucoma, 0 Refill(s) Start Date: 02/09/15 Status: OrderedMobic 7.5 mg oral tablet 7.5 mg 1 tabs, Oral, Daily, # 30 tabs, 0 Refill(s), Pharmacy: [facility], 1 tabs Oral Daily Start [...] 11.9, # 4 boxes, 1 Refill(s), Pharmacy: [facility], USE 4 TIMES DAILY. Box of 100 strips. DX: E 11.9 Start Date: 04/14/15 Status: OrderedProAir HFA 90 mcg/inh inhalation aerosol 180 mcg 2 puffs, Inhalation, q4hr, # 1 Each, 2 Refill(s), Pharmacy: [facility] 2028 Start Date: 04/14/15 Status: OrderedSynthroid 75 mcg (0.075 mg) oral tablet 75 mcg 1 tabs, Oral, Daily, # 90 tabs, 0 Refill(s), Pharmacy: [facility], Note new dose, 1 tabs Oral Daily,x90 days Start Date: 06/04/15 Stop Date: 09/02/15 Status: OrderedToujeo SoloStar 300 units/mL subcutaneous solution 45 units, SubCutaneous, Bedtime (once a day), # 9 Each, 1 Refill(s), Pharmacy: [facility], 45 units SubCutaneous Bedtime (once a day), x30 days Start Date: 05/13/15 Stop Date: 07/12/15 Status: OrderedUnivasc 15 mg oral tablet 15 mg 1 tabs, Oral, BID, # 180 tabs, 1 Refill(s), Pharmacy: [facility], 1 tabs Oral BID Start [...]
--- OUTSIDE RECORDS SUMMARY | 2016-12-19 10:16 | External Medical Summary | Referral Summary ---
:1955 Author Organization [facility] Address [address] [place] [address] [place] [phone] Care Team Providers Name Role Phone Ted Francisco Primary Care Physician Encounter VC Date(s): 12/17/14 - 12/17/14 [facility] [address] [place] [phone] [place] Discharge Disposition: 01-Home or Self Care Attending Physician: Ted Francisco MD Admitting Physician: Ted Francisco MD Vital Signs Most recent to oldest [Reference Range]: 1 Temperature Tympanic [36.6-38.1 degC] 37.4 degC (12/17/14 2:57 PM) Peripheral Pulse Rate [60-100 bpm] 84 bpm (12/17/14 2:57 PM) Respiratory Rate [14-20 br/min] 20 br/min (12/17/14 2:57 PM) Blood Pressure [90-140/60-90 mmHg] 154/70 mmHg *HI* (12/17/14 2:57 PM) Problem List Condition Effective Dates Status [...] , # 4 boxes, 1 Refill(s), [facility]: [facility], 31 g x 8 mm (short). Uses 4 daily. Box of 100. Start Date: 12/17/14 Status: Orderedgabapentin 100 mg oral capsule See Instructions, TAKE ONE CAPSULE BY MOUTH ONCE DAILY AT BEDTIME FOR 2 DAYS AND THEN ONE TWICE DAILY FOR 2 DAYS AND THEN ONE THREE TIMES DAILY THEREAFTER, # 90 caps, eRx: [facility], TAKE ONE CAPSULE BY MOUTH ONCE DAILY AT BEDTIME FOR 2 D... Start Date: 06/25/15 Status: Orderedgabapentin 100 mg oral capsule See Instructions, Take 1 cap PO QHS x 2 days, then 1 cap PO BID x 2 days, then 1 cap PO TID, # 90 caps, eRx: [facility], Take 1 cap PO QHS x 2 days , then 1 cap PO BID x 2 days, then 1 cap PO TID Start Date: 05/17/15 Status: OrderedHumaLOG KwikPen 100 units/mL subcutaneous solution [...] q4hr, # 1 Each, 2 Refill(s), Pharmacy: [facility] Start Date: 04/14/15 Status: OrderedSynthroid 75 mcg (0.075 mg) oral tablet 75 mcg 1 tabs, Oral, Daily, # 90 tabs, 0 Refill(s), Pharmacy: [facility], Note new dose, 1 tabs [...] Procedures Procedure Date Related Diagnosis Body Site Cholecystectomy 1996 Carpal tunnel release Cataract extraction section Social History Social History Type Response Smoking Status Never smoker Assessment and Plan Extracted from: Title: Ambulatory Patient Education Author: Ted Francisco MD Date: 12/17 Family Medicine Atherosclerosis Atherosclerosis, or hardening of the arteries, is the buildup of plaque within the major arteries in the body. Plaque is made up of fats (lipids), cholesterol , calcium, and fibrous tissue. Plaque can na rrow or block blood flow within an artery. Plaque can break off and cause damage to the affected organ. Plaque can also "rupture." When plaque ruptures within an artery, a clot can form, causing a sudde n (acute) blockage of the artery. Untreated atherosclerosis can cause serious health problems or . RISK FACTORS High cholesterol levels. Smoking. Obesity. Lack of activity or exercise. Eating a diet high in saturated fat. Family history. Diabetes. SIGNS AND SYMPTOMS Symptoms of atherosclerosis can occur when blood flow to an artery is slowed or blocked. Severity and onset of symptoms depends on how extensive the narrowing or blockage is. A sudden plaque rupture can bring immediate, life-threatening symptoms. Atherosclerosis can affect different arteries in the body, for example: Coronary arteries. The coronary arteries supply the heart with blood. When the coronary arteries are narrowed or blocked from atherosclerosis, this is known as coronary artery disease (CAD). CAD ca n cause a heart attack. Common heart attack symptoms include: Chest pain or pain that radiates to the neck, arm, jaw, or in the upper, middle back (mid-scapular pain). Shortness of breath without cause. Profuse sweating while at rest. Irregular heartbeats. Nausea or gastrointestinal upset. Carotid arteries. The carotid arteries supply the brain with blood. They are located on each side of your neck. When blood flow to these arteries is slowed or blocked, a transient ischemic attack ( TIA) or stroke can occur. A TIA is considered a "mini-stroke" or "warning stroke." TIA symptoms are the same as stroke symptoms, but they are temporary and last less than 24 hours. A stroke can cause pe rmanent damage or . Common TIA and stroke symptoms include: Sudden numbness or weakness to one side of your body, such as the face, arm, or leg. Sudden confusion or trouble speaking or understanding. Sudden trouble seeing out of one or both eyes. Sudden trouble walking, loss of balance, or dizziness. Sudden, severe headache with no known cause. Arteries in the legs. When arteries in the lower legs become narrowed or blocked, this is known as peripheral vascular disease (PVD). PVD can cause a symptom called claudication. Claudication is pa in or a burning feeling in your legs when walking or exercising and usually goes away with rest. Very severe PVD can cause pain in your legs while at rest. Renal arteries. The renal arteries supply the kidneys with blood. Blockage of the renal arteries can cause a decline in kidney function or high blood pressure (hypertension). Gastrointestinal arteries (mesenteric circulation). Abdominal pain may occur after eating. DIAGNOSIS Your health care provider may perform the following tests to diagnose atherosclerosis: Blood tests. Stress test. Echocardiogram. Nuclear scan. Ankle/brachial index. Ultrasonography. Computed tomography (CT) scan. Angiography. TREATMENT Atherosclerosis treatment includes the following: Lifestyle changes such as: Quitting smoking. Your health care provider can help you with smoking cessation. Eating a diet low in saturated fat. A registered dietitian can educate you on healthy food options, such as helping you understand the difference between good fat and bad fat. Following an exercise program approved by your health care provider. Maintaining a healthy weight. Lose weight as approved by your health care provider. Have your cholesterol levels checked as directed by your health care provider. Medicines. Cholesterol medicines can help slow or stop the progression of atherosclerosis. Different procedural or surgical interventions to treat atherosclerosis include: Balloon angioplasty. The technical name for balloon angioplasty is percutaneous transluminal angioplasty (UNDER TRIMMER). In this procedure, a catheter with a small balloon at the tip is inserted through the blocked or narrowed artery. The balloon is then inflated. When the balloon is inflated, the fatty plaque is compressed against the artery wall, allowing better blood flow within the artery. Balloon angioplasty and stenting. In this procedure, balloon angioplasty is combined with a stenting procedure. A stent is a small, metal mesh tube that keeps the artery open. After the artery is o pened up by the balloon technique, the stent is then deployed. The stent is permanent. Open heart surgery or bypass surgery. To perform this type of surgery, a healthy vessel is first "harvested" from either the leg or arm. The harvested vessel is then used to "bypass" the blocked at herosclerotic vessel so new blood flow can be established. Atherectomy. Atherectomy is a procedure that uses a catheter with a sharp blade to remove plaque from an artery. A chamber in the catheter collects the plaque. Endarterectomy. An endarterectomy is a surgical procedure where a surgeon removes plaque from an artery. Amputation. When blockages in the lower legs are very severe and circulation cannot be restored, amputation may be required. SEEK IMMEDIATE MEDICAL CARE IF: You are having heart attack symptoms, such as: Chest pain or pain that radiates to the neck, arm, jaw, or in the upper, middle back (mid-scapular pain). Shortness of breath without cause. Profuse sweating while at rest. Irregular heartbeats. Nausea or gastrointestinal upset. You are having stroke symptoms, such as sudden: Numbness or weakness to one side of your body, such as the face, arm, or leg. Confusion or trouble speaking or understanding. Trouble seeing out of one or both eyes. Trouble walking, loss of balance, or dizziness. Severe headache with no known cause. Your hands or feet are bluish, cold, or you have pain in them. You have bad abdominal pain after eating. Symptoms of heart attack or stroke may represent a serious problem that is an emergency. Do not wait to see if the symptoms will go away. Get medical help right away. Call your local emergency services (911 in the [place] Do not drive yourself to the hospital. Document Released: 05/11/2004 Document Revised: 07/06/2014 Document Reviewed: 04/23/2012 [facility] Patient Information 2015 [employer]. This information is not intended to replace advice given to you by your health care provider. Make sure you discuss any questions you have with your health care provider. No follow up information was provided. Extracted from: Title: Office Visit Note Author: Ted Francisco MD Date: 12/17/14 Assessment/Plan Adult hypothyroidism Resume synthroid .05mg po daily. Recheck in 60 days. Bilateral cataracts Surgery must be postponed until hba1c is at least down to 10 and preferably under 8.5. Coronary artery disease This issue is stable and appropriate refills, lab, and f/u have been discussed. Diabetes public health educator nurse met with her briefly. Reschedule with NN clinical informatics educator also. Not using short needles effectively and increase to larger needles. Lantus to 45 units qhs. Same novolog. Diabetic nephropathy On an MEGAN inhibitor already.Nephrology consult offered and declined. Hypertension This issue is stable and appropriate refills, lab, and f/u have been discussed. The patient reports their blood pressure has been stable at home and is not having any significant or related problems. There has been no chest pain, chest pressure, soa/durand.
--- OUTSIDE RECORDS SUMMARY | 2016-12-19 10:16 | External Medical Summary | Referral Summary ---
:1955 Author Organization [facility] [address] [place] [id number] Care Team Providers Name Role Phone Ted Francisco Primary Care Physician Encounter VC Date(s): 10/22/15 - 10/22/15 [facility] [address] [place] [address]- Discharge Diagnosis: Hypertension Discharge Diagnosis: Adult hypothyroidism Discharge Diagnosis: Diabetes Discharge Diagnosis: Hyperlipidemia Discharge Diagnosis: Drug noncompliance Discharge Disposition: 01-Home or Self Care Attending Physician: Ayala Echevarria PA-C Admitting Physician: Ayala Echevarria PA-C Vital Signs Most recent to oldest [Reference Range]: 1 Temperature Tympanic [36.6-38.1 degC] 36.4 degC *LOW* (10/22/15 10:57 AM) Peripheral Pulse Rate [60-100 bpm] 86 bpm (10/22/15 10:57 AM) Respiratory Rate [14-20 br/min] 18 br/min (10/22/15 10:57 AM) Blood Pressure [90-140/60-90 mmHg] 168/68 mmHg *HI* (10/22/15 10:57 AM) Problem List Condition Effective Dates Status [...] , # 4 boxes, 1 Refill(s), Pharmacy: [facility], 31 g x 8 mm (short). Uses 4 daily. Box of 100. Start Date: 10/19/15 Status: Orderedcitalopram 20 mg oral tablet 20 mg 1 tabs, Oral, Daily, # 90 tabs, 1 Refill(s), Pharmacy: [facility], 1 tabs Oral Daily Start Date: 10/19/15 Status: Orderedgabapentin 100 mg oral capsule 100 mg 1 caps, Oral, TID, # 90 caps, 3 Refill(s), Pharmacy: [place] [id number], 1 caps Oral TID Start Date: 08/20/15 Status: OrderedHumaLOG KwikPen 100 units/mL subcutaneous solution 30 units, SubCutaneous, TIDAC, # 10 mL, 6 Refill(s), Pharmacy: [facility], 30units SubCutaneous TIDAC Start Date: 10/19/15 Status: Orderedhydrochlorothiazide 25 mg oral tablet 25 mg 1 tabs, Oral, Daily, # 90 tabs, 1 Refill(s), Pharmacy: [facility], 1 tabs Oral Daily Start Date: 10/19/15 Status: OrderedMisc Medication eye drops for right eye glaucoma, 0 Refill(s) Start Date: 02/09/15 Status: OrderedMobic 7.5 mg oral tablet 7.5 mg 1 tabs, Oral, Daily, # 30 tabs, 0 Refill(s), Pharmacy: [facility], 1 tabs Oral Daily Start Date: 07/09/15 Status: OrderedNorvasc 5 mg oral tablet 5 mg 1 tabs, Oral, Daily, # 30 tabs, 0 Refill(s), Pharmacy: [facility], 1 tabs Oral Daily Start Date: 10/22/15 Status: OrderedONE TOUCH ULTRA TEST STRIPS ONE TOUCH ULTRA TEST STRIPS, See Instructions, USE 4 TIMES DAILY. Box of 100 strips. DX: E 11.9, # 4 boxes, 1 Refill(s), Pharmacy: [facility], USE 4 TIMES DAILY. Box of 100 strips. DX: E 11.9 Start Date: 10/19/15 Status: OrderedProAir HFA 90 mcg/inh inhalation aerosol 180 mcg 2 puffs, Inhalation, q4hr, # 1 Each, 2 Refill(s), Pharmacy: [facility] Start Date: 10/19/15 Status: OrderedSynthroid 88 mcg (0.088 mg) oral tablet 88 mcg 1 tabs, Oral, Daily, # 90 tabs, 1 Refill(s), Pharmacy: [facility], Note dose increase, 1 tabs Oral Daily Start Date: 10/19/15 Status: OrderedToujeo SoloStar 300 units/mL subcutaneous solution 45 units, SubCutaneous, Bedtime (once a day), # 9 Each, 1 Refill(s), Pharmacy: [facility], 45 units SubCutaneous Bedtime (once a day), x30 days Start Date: 10/19/15 Stop Date: 12/18/15 Status: OrderedUnivasc 15 mg oral tablet 15 mg 1 tabs, Oral, BID, # 180 tabs, 1 Refill(s), Pharmacy: [facility], 1 tabs Oral BID Start Date: 10/19/15 Status: OrderedZocor 20 mg oral tablet 20 mg 1 tabs, Oral, Bedtime (once a day), # 30 tabs, 0 Refill(s), Pharmacy: [facility], 1 tabs Oral Bedtime (once a day) Start Date: 10/22/15 Status: Ordered Results No data available for [...] Patient Education Author: Ayala Echevarria PA-C Date: Cardiovascular Dyslipidemia Dyslipidemia is an imbalance of the lipids in your blood. Lipids are waxy, fat- like proteins that your body needs in small amounts. Dyslipidemia often involves the lipids cholesterol or triglycerides. Common forms of dyslipidemia are: High levels of bad cholesterol (LDL cholesterol). LDL cholesterol is the type of cholesterol that causes heart disease. Low levels of good cholesterol (HDL cholesterol). HDL cholesterol is the type of cholesterol that helps protect against heart disease. High levels of triglycerides. Triglycerides are a fatty substance in the blood linked to a buildup of plaque on your arteries. RISK FACTORS Increased age. Having a family history of high cholesterol. Certain medicines, including control pills, diuretics, beta- blockers, and some medicines for depression. Smoking. Eating a high-fat diet. Being overweight. Medical conditions such as diabetes, polycystic ovary syndrome, , kidney disease, and hypothyroidism. Lack of regular exercise. SIGNS AND SYMPTOMS There are no signs or symptoms with dyslipidemia. DIAGNOSIS A simple blood test called a fasting blood test can be done to determine your level of: Total cholesterol. This is the combined number of LDL cholesterol and HDL cholesterol. A healthy number is lower than 200. LDL cholesterol. The goal number for LDL cholesterol is different for each person depending on risk factors. Ask your health care provider what your LDL cholesterol number should be. HDL cholesterol. A healthy level of HDL cholesterol is 60 or higher. A number lower than 40 for men or 50 for women is a danger sign. Triglycerides. A healthy triglyceride number is less than 150. TREATMENT Dyslipidemia is a treatable condition. Your health care provider will advise you on what type of treatment is best based on your age, your test results, and current guidelines. Treatment may include: Dietary changes. A dietitian may help you create a diet that is based on your risk factors, conditions, and lifestyle. Regular exercise. This can help lower your LDL cholesterol, raise your HDL cholesterol, and help with weight management. Check with your health care provider before beginning an exercise program. Most people should participate in 30 minutes of brisk exercise 5 days a week. Quitting smoking. Medicines to lower LDL cholesterol and triglycerides. If you have high levels of triglycerides, your health care provider may: Have you stop drinking alcohol. Have you restrict your fat intake. Have you eliminate refined sugars from your diet. Treat you for other conditions, such as underactive thyroid gland ( hypothyroidism) and high blood sugar (hyperglycemia). Your health care provider will monitor your lipid levels with regular blood tests. HOME CARE INSTRUCTIONS Eat a healthy diet. Follow any diet instructions if they were given to you by your health care provider. Maintain a healthy weight. Exercise regularly based on the recommendations of your health care provider. Do not use any tobacco products, including cigarettes, chewing tobacco, or electronic cigarettes. Take medicines only as directed by your health care provider. Keep all follow-up visits as directed by your health care provider. SEEK MEDICAL CARE IF: You are having possible side effects from your medicines. This information is not intended to replace advice given to you by your health care provider. Make sure you discuss any questions you have with your health care provider. Document Released: 02/24/2014 Document Revised: 03/12/2015 Document Reviewed: 02/24/2014 [facility] 2016 [facility] Fat and Cholesterol Restricted Diet High levels of fat and cholesterol in your blood may lead to various health problems, such as diseases of the heart, blood vessels, gallbladder, liver, and pancreas. Fats are concentrated sources of talon rgy that come in various forms. Certain types of fat, including saturated fat, may be harmful in excess. Cholesterol is a substance needed by your body in small amounts. Your body makes all the choleste rol it needs. Excess cholesterol comes from the food you eat. When you have high levels of cholesterol and saturated fat in your blood, health problems can develop because the excess fat and cholesterol will gather along the us of your blood vessels, causing th em to narrow. Choosing the right foods will help you control your intake of fat and cholesterol. This will help keep the levels of these substances in your blood within normal limits and reduce your risk of disease. WHAT IS MY PLAN? Your health care provider recommends that you: Get no more than % of the total calories in your daily diet from fat. Limit your intake of saturated fat to less than % of your total calories each day. Limit the amount of cholesterol in your diet to less than mg per day. WHAT TYPES OF FAT SHOULD I CHOOSE? Choose healthy fats more often. Choose monounsaturated and polyunsaturated fats, such as olive and canola oil, flaxseeds, walnuts, almonds , and seeds. Eat more omega-3 fats. Good choices include salmon, mackerel, sardines, tuna, flaxseed oil, and ground flaxseeds. Aim to eat fish at least two times a week. Limit saturated fats. Saturated fats are primarily found in animal products, such as meats, butter, and cream. Plant sources of saturated fats include palm oil, palm kernel oil, and coconut oil. Avoid foods with partially hydrogenated oils in them. These contain trans fats. Examples of foods that contain trans fats are stick margarine, some tub margarines, cookies, crackers, and other baked goods. WHAT GENERAL GUIDELINES DO I NEED TO FOLLOW? These guidelines for healthy eating will help you control your intake of fat and cholesterol: Check food labels carefully to identify foods with trans fats or high amounts of saturated fat. Fill one half of your plate with vegetables and green salads. Fill one fourth of your plate with whole grains. Look for the word "whole" as the first word in the ingredient list. Fill one fourth of your plate with lean protein foods. Limit fruit to two servings a day. Choose fruit instead of juice. Eat more foods that contain soluble fiber. Examples of foods that contain this type of fiber are apples, broccoli, carrots, beans, peas, and barley. Aim to get 2030 g of fiber per day. Eat more home-cooked food and less restaurant, buffet, and fast food. Limit or avoid alcohol. Limit foods high in starch and sugar. Limit fried foods. Cook foods using methods other than frying. Baking, boiling, grilling, and broiling are all great options. Lose weight if you are overweight. Losing just 510% of your initial body weight can help your overall health and prevent diseases such as diabetes and heart disease. WHAT FOODS CAN I EAT? Grains Whole grains, such as whole wheat or whole grain breads, crackers, cereals, and pasta. Unsweetened oatmeal, bulgur, barley, quinoa, or brown rice. Bishop or whole wheat flour tortillas. Vegetables Fresh or frozen vegetables (raw, steamed, roasted, or grilled). Green salads. Fruits All fresh, canned (in natural juice), or frozen fruits. Meat and Other Protein Products Ground beef (85% or leaner), grass-fed beef, or beef trimmed of fat. Skinless chicken or turkey. Ground chicken or turkey. Pork trimmed of fat. All fish and seafood. Eggs. Dried beans, peas, or lentils. Unsalted nuts or seeds. Unsalted canned or dry beans. Dairy Low-fat dairy products, such as skim or 1% milk, 2% or reduced-fat cheeses, low -fat ricotta or cottage cheese, or plain low-fat yogurt. Fats and Oils Tub margarines without trans fats. Light or reduced-fat mayonnaise and salad dressings. Avocado. [place]kinson, canola, sesame, or safflower oils. Natural peanut or almond butter (choose ones without added sugar and oil). The items listed above may not be a complete list of recommended foods or beverages. Contact your dietitian for more options. WHAT FOODS ARE NOT RECOMMENDED? Grains White bread. White pasta. White rice. Cornbread. Bagels, pastries, and croissants. Crackers that contain trans fat. Vegetables White potatoes. Bishop. Creamed or fried vegetables. Vegetables in a cheese sauce. Fruits Dried fruits. Canned fruit in light or heavy syrup. Fruit juice. Meat and Other Protein Products Fatty cuts of meat. Ribs, chicken wings, felix, sausage, bologna, salami, chitterlings, fatback, hot dogs, bratwurst, and packaged luncheon meats. Liver and organ meats. Dairy Whole or 2% milk, cream, [id number], and cream cheese. Whole milk cheeses. Whole-fat or sweetened yogurt. Full-fat cheeses. Nondairy creamers and whipped toppings. Processed cheese, cheese spreads, or cheese curds. Sweets and Desserts Bishop syrup, sugars, honey, and molasses. Candy. Jam and jelly. Syrup. Sweetened cereals. Cookies, pies, cakes, donuts, muffins, and ice cream. Fats and Oils Butter, stick margarine, lard, shortening, ghee, or felix fat. Coconut, palm kernel, or palm oils. Beverages Alcohol. Sweetened drinks (such as sodas, lemonade, and fruit drinks or punches ). The items listed above may not be a complete list of foods and beverages to avoid. Contact your dietitian for more information. This information is not intended to replace advice given to you by your health care provider. Make sure you discuss any questions you have with your health care provider. Document Released: 02/19/2006 Document Revised: 03/12/2015 Document Reviewed: 05/20/2014 [employer] Patient Information 2016 [place]. How to Avoid Diabetes Problems You can do a lot to prevent or slow down diabetes problems. Following your diabetes plan and taking care of yourself can reduce your risk of serious or life-threatening complications. Below, you will fi nd certain things you can do to prevent diabetes problems. MANAGE YOUR DIABETES Follow your health care provider's, nurse educator's, and dietitian's instructions for managing your diabetes. They will teach you the basics of diabetes care. They can help answer questions you may hav e. Learn about diabetes and make healthy choices regarding eating and physical activity. Monitor your blood glucose level regularly. Your health care provider will help you decide how often to check you r blood glucose level depending on your treatment goals and how well you are meeting them. DO NOT USE NICOTINE Nicotine and diabetes are a dangerous combination. Nicotine raises your risk for diabetes problems. If you quit using nicotine, you will lower your risk for heart attack, stroke, nerve disease, and kidn ey disease. Your cholesterol and your blood pressure levels may improve. Your blood circulation will also improve. Do not use any tobacco products, including cigarettes, chewing tobacco, or electronic c igarettes. If you need help quitting, ask your health care provider. KEEP YOUR BLOOD PRESSURE UNDER CONTROL Your health care provider will determine your individualized target blood pressure based on your age, your medicines, how long you have had diabetes, and any other medical conditions you have. Blood pressure consists of two numbers. Generally, the goal is to keep your top number (systolic pressure) at or below 130, and your bottom number (diastolic pressure) at or below 80. Your health care provi bill may recommend a lower target blood pressure reading, if appropriate. Meal planning, medicines, and exercise can help you reach your target blood pressure. Make sure your health care provider checks your blood pressure at every visit. KEEP YOUR CHOLESTEROL UNDER CONTROL Normal cholesterol levels will help prevent heart disease and stroke. These are the biggest health problems for people with diabetes. Keeping cholesterol levels under control can also help with blood fl ow. Have your cholesterol level checked at least once a year. Your health care provider may prescribe a medicine known as a statin. Statins lower your cholesterol. If you are not taking a statin, ask yo ur health care provider if you should be. Meal planning, exercise, and medicines can help you reach your cholesterol targets. SCHEDULE AND KEEP YOUR ANNUAL PHYSICAL EXAMS AND EYE EXAMS Your health care provider will tell you how often he or she wants to see you depending on your plan of treatment. It is important that you keep these appointments so that possible problems can be identi fied early and complications can be avoided or treated. Every visit with your health care provider should include your weight, blood pressure, and an evaluation of your blood glucose control. Your hemoglobin A1c should be checked: At least twice a year if you are at your goal. Every 3 months if there are changes in treatment. If you are not meeting your goals. Your blood lipids should be checked yearly. You should also be checked yearly to see if you have protein in your urine (microalbumin). Schedule a dilated eye exam within 5 years of your diagnosis if you have type 1 diabetes, and then yearly. Schedule a dilated eye exam at diagnosis if you have type 2 diabetes, and then yearly. A ll exams thereafter can be extended to every 2 to 3 years if one or more exams have been normal. KEEP YOUR VACCINES CURRENT It is recommended that you receive a flu (influenza) vaccine every year. It is also recommended that you receive a pneumonia (pneumococcal) vaccine. If you are 65 years of age or older and have never re ceived a pneumonia vaccine, this vaccine may be given as a series of two separate shots. Ask your health care provider which additional vaccines may be recommended. TAKE CARE OF YOUR FEET Diabetes may cause you to have a poor blood supply (circulation) to your legs and feet. Because of this, the skin may be thinner, break easier, and heal more slowly. You also may have nerve damage in yo ur legs and feet, causing decreased feeling. You may not notice minor injuries to your feet that could lead to serious problems or infections. Taking care of your feet is very important. Visual foot exams are performed at every routine medical visit. The exams check for cuts, injuries, or other problems with the feet. A comprehensive foot exam should be done yearly. This includes visual inspection as well as assessing foot pulses and testing for loss of sensation. You should also do the following: Inspect your feet daily for cuts, calluses, blisters, ingrown toenails, and signs of infection, such as redness, swelling, or pus. Wash and dry your feet thoroughly, especially between the toes. Avoid soaking your feet regularly in hot water baths. Moisturize dry skin with lotion, avoiding areas between your toes. Cut toenails straight across and file the edges. Avoid shoes that do not fit well or have areas that irritate your skin. Avoid going barefooted or wearing only socks. Your feet need protection. TAKE CARE OF YOUR TEETH People with poorly controlled diabetes are more likely to have gum (periodontal ) disease. These infections make diabetes harder to control. Periodontal diseases, if left untreated, can lead to tooth los s. [place] your teeth twice a day, floss, and see your dentist for checkups and cleaning every 6 months, or 2 times a year. ASK YOUR HEALTH CARE PROVIDER ABOUT TAKING ASPIRIN Taking aspirin daily is recommended to help prevent cardiovascular disease in people with and without diabetes. Ask your health care provider if this would benefit you and what dose he or she would recommend. DRINK RESPONSIBLY Moderate amounts of alcohol (less than 1 drink per day for adult women and less than 2 drinks per day for adult men) have a minimal effect on blood glucose if ingested with food. It is important to eat food with alcohol to avoid hypoglycemia. People should avoid alcohol if they have a history of alcohol abuse or dependence, if they are , and if they have liver disease, pancreatitis, advanced neuropathy, or severe hypertriglyceridemia. LESSEN STRESS Living with diabetes can be stressful. When you are under stress, your blood glucose may be affected in two ways: Stress hormones may cause your blood glucose to rise. You may be distracted from taking good care of yourself. It is a good idea to be aware of your stress level and make changes that are necessary to help you better manage challenging situations. Support groups, planned relaxation, a hobby you enjoy, meditation , healthy relationships, and exercise all work to lower your stress level. If your efforts do not seem to be helping, get help from your health care provider or a trained mental health professional. This information is not intended to replace advice given to you by your health care provider. Make sure you discuss any questions you have with your health care provider. Document Released: 11/07/2011 Document Revised: 03/12/2015 Document Reviewed: 04/15/2014 [facility] Patient Information 2016 [facility]. Hypertension Hypertension, commonly called high blood pressure, [...] 02/19/2006 Document Revised: 03/12/2015 Document Reviewed: 12/12/2013 [facility] Patient Information 2016 [place]. No follow up information was provided. Extracted from: Title: Office Visit Note- Review lab Author: Ayala Echevarria PA-C Date: 10/22/15 Assessment/Plan Adult hypothyroidism TSH was in range, but upper end of normal. I had increased her to 88mcg daily, and she will start this when she gets it from [facility]. I would like to recheck TSH in 6 weeks. Order is in the computer. Ordered: Office Visit Level 4 Est 15942 TSH with Reflex Free T4 Diabetes I had a lengthy, candid discussion with the patient. She is advised to never stop her insulinon her own.Explained to her possible medical complications with uncontrolleddiabetes. She n eeds to startbackon her Toujeo at 45 units at bedtime tonight. She needs to check her BGwhen she gets home. If her BG is >250, she needs to give 10u of Humalog.Make sure to always take Humalo g with meals as well.Resume at 30u at meals for now. She is to check fasting , before meals, 2H after meals, HS and prn and bring her log in. I want to see her in 2 weeks to see how she is doing. Will recheck HgbA1C in 3 months.I also did give the pt 2 sample pens of Patrice since she has been out. I had already sent refills to [facility] for her. Ordered: Hemoglobin A1c Lipid Panel Office Visit Level 4 Est 94430 Drug noncompliance D/w ptthe issues of not taking her medications as prescribed, including severe illness, hospitalization and . She voiced understanding. Ordered: Office Visit Level 4 Est 98958 Hyperlipidemia Her lipids were not even calculable. She states that she has been on Lipitor in the past; maybe 10 years ago, and had myalgias. Will try her on Zocor and advised her to take CoQ10 with it. If still having SE's, will try Pravachol. May need to do Zetia instead. Would like to recheck her lipids in about 6 months. Ordered: Lipid Panel Office Visit Level 4 Est 25529 Hypertension I think she needs another agent. She did not want to start another onea few days ago, but I highly recommended it.Will prescribe Norvasc daily. Sheis to continue to check BP's at home. Recheck in clinic in 2 weeks. Ordered: Office Visit Level 4 Est 83852 Orders: amLODIPine, 5 mg 1 tabs, Oral, Daily, # 30 tabs, 0 Refill(s), Pharmacy: [facility], 1 tabs Oral Daily simvastatin, 20 mg 1 tabs, Oral, Bedtime (once a day), # 30 tabs, 0 Refill(s) , Pharmacy: [facility], 1 tabs Oral Bedtime (once a day)
--- OUTSIDE RECORDS SUMMARY | 2016-12-19 10:16 | External Medical Summary | Referral Summary ---
:1955 Author Organization [facility] [address] [place] [phone] Care Team Providers Name Role Phone Ted Francisco Primary Care Physician Encounter VC Date(s): 12/07/14 - 12/07/14 [facility] [address] [place] [phone] [place] Discharge Disposition: [...] , # 4 boxes, 1 Refill(s), Pharmacy: [facility]/pharmacy, 31 g x 8 mm (short). Uses 4 daily. Box of 100. Start Date: 12/17/14 Status: Orderedgabapentin 100 mg oral capsule See Instructions, Take 1 cap PO QHS x 2 days, then 1 cap PO BID x 2 days, then 1 cap PO TID, # 90 caps, eRx: [id number], Take 1 cap PO QHS x 2 days , then 1 cap PO BID x 2 days, then 1 cap PO TID Start Date: 05/17/15 Status: OrderedHumaLOG KwikPen 100 units/mL subcutaneous solution 30 units, SubCutaneous, TIDAC, # 10 mL, 6 Refill(s), Pharmacy: [facility], 30units SubCutaneous TIDAC Start Date: 04/14/15 Status: Orderedhydrochlorothiazide 25 mg oral tablet 25 mg 1 tabs, Oral, Daily, # 90 tabs, 1 Refill(s), Pharmacy: [facility], 1 tabs Oral Daily Start Date: [...] 11.9, # 4 boxes, 1 Refill(s), Pharmacy: [facility], USE 4 TIMES DAILY. Box of 100 strips. DX: E 11.9 Start Date: 04/14/15 Status: OrderedProAir HFA 90 mcg/inh inhalation aerosol 180 mcg 2 puffs, Inhalation, q4hr, # 1 Each, 2 Refill(s), Pharmacy: [id number] Start Date: 04/14/15 Status: OrderedSynthroid 75 mcg (0.075 mg) oral tablet 75 mcg 1 tabs, Oral, Daily, # 90 tabs, 0 Refill(s), Pharmacy: [facility], Note new dose, 1 tabs Oral Daily,x90 days Start Date: 06/04/15 Stop Date: 09/02/15 Status: OrderedTouarlette SoloStar 300 units/mL subcutaneous solution 45 units, SubCutaneous, Bedtime (once a day), # 9 Each, 1 Refill(s), Pharmacy: [facility], 45 units SubCutaneous Bedtime (once a day), x30 days Start Date: 05/13/15 Stop Date: 07/12/15 Status: OrderedUnivasc 15 mg oral tablet 15 mg 1 tabs, Oral, BID, # 180 tabs, 1 Refill(s), Pharmacy: [facility], 1 tabs Oral BID Start Date: 04/14/15 Status: Ordered Results Hematology Most recent to oldest [Reference Range]: 1 WBC [4.8-10.8 10*3/uL] 10.1 10*3/uL (12/07/14 9:14 AM) RBC [4.00-5.20] 4.37 (12/07/14 9:14 AM) Hgb [12.0-16.0 gm/dL] 13.8 gm/dL (12/07/14:14 AM) Hct [37.0-47.0 %] 38.8 % (12/07/14:14 AM) MCV [82.0-99.0 fL] 88.8 fL (12/07/14 9:14 AM) MCH [27.0-32.0 pg] 31.6 pg (12/07/14:14 AM) MCHC [32.0-36.0 gm/dL] 35.6 gm/dL (12/07/14 9:14 AM) RDW [11.5-14.5 %] 12.0 % (12/07/14:14 AM) Platelet [150-400 10*3/uL] 294 10*3/uL (12/07/14 9:14 AM) MPV [8.8-14.8 fL] 10.9 fL (12/07/14 9:14 AM) Immature Granulocytes [0.0-1.0 %] 1.0 % (12/07/14 9:14 AM) Neutrophils [51-75 %] 64 % (12/07/14 9:14 AM) Lymphocytes [20-46 %] 24 % (12/07/14 9:14 AM) Monocytes [4-11 %] 8 % (12/07/14 9:14 AM) Eosinophils [0-4 %] 3 % (12/07/14 9:14 AM) Basophils [0-2 %] 0 % (12/07/14 9:14 AM) Neutro Absolute [1.90-7.00 10*3] 6.49 10*3 (12/07/14 9:14 AM) Lymph Absolute [0.80-3.30 10*3] 2.38 10*3 (12/07/14 9:14 AM) [place] Absolute [0.30-1.00 10*3] 0.82 10*3 (12/07/14 9:14 AM) Eos Absolute [0.00-0.50 10*3] 0.27 10*3 (12/07/14 9:14 AM) Baso Absolute [0.00-0.20 10*3] 0.03 10*3 (12/07/14 9:14 AM) Chemistry Most recent to oldest [Reference Range]: 1 Sodium Lvl [135-144 mEq/L] 137 mEq/L (12/07/14:14 AM) Potassium Lvl [3.5-5.2 mEq/L] 3.9 mEq/L (12/07/14 9:14 AM) Chloride [99-111 mEq/L] 101 mEq/L (12/07/14:14 AM) CO2 [22-31 mEq/L] 28 mEq/L (12/07/14:14 AM) AGAP [3-20] 8 (12/07/14 9:14 AM) BUN [10-20 mg/dL] 22 mg/dL *HI* (12/07/14 9:14 AM) Glucose Lvl [70-99 mg/dL] 109 mg/dL *HI* (12/07/14 9:14 AM) Creatinine Lvl [0.57-1.11 mg/dL] 0.68 mg/dL (12/07/14:14 AM) eGFR [>60 mL/min] >60 mL/min 1 (12/07/14:14 AM) Calcium Lvl [8.9-10.5 mg/dL] 9.6 mg/dL (12/07/14:14 AM) Albumin Lvl [3.5-5.0 gm/dL] 3.2 gm/dL *LOW* (12/07/14 9:14 AM) Total Protein [6.4-8.3 gm/dL] 6.0 gm/dL *LOW* (12/07/14:14 AM) Globulin [1.8-4.0 gm/dL] 2.8 gm/dL (12/07/14 9:14 AM) ALT [0-55 U/L] 25 U/L (12/07/14 9:14 AM) AST [5-34 U/L] 20 U/L (12/07/14 9:14 AM) Alk Phos [40-150 U/L] 103 U/L (12/07/14 9:14 AM) Bili Total [0.2-1.2 mg/dL] 0.2 mg/dL (12/07/14 9:14 AM) T4 Free [0.7-1.5 ng/dL] 0.9 ng/dL (12/07/14 9:14 AM) TSH with Reflex Free T4 [0.35-4.94] [...] AM) UA Mucous Present (12/07/14 9:10 AM) Microbiology Reports TEST:Urine Culture STATUS:Auth (Verified) BODY SITE: SOURCE:Urine COLLECTED DATE/TIME:12/07/14 9:10 AMUrine CultureNormal urogenital/skin nunu present Immunizations Vaccine Date Refusal Reason tetanus/diphth/pertuss (Tdap) adult/adol 06/09/13 Procedures Procedure Date Related Diagnosis Body Site Collection of venous blood by venipuncture 12/07/14 Collection of venous blood by venipuncture 12/07/14 Collection of venous blood by venipuncture 12/07/14 Cholecystectomy 1996 Carpal tunnel release Cataract extraction [...] Document Reviewed: 10/13/2011 ExitCare Patient Information 2015 [employer]. This information is not intended to replace [...] Document Reviewed: 10/13/2011 ExitCare Patient Information [address] [facility]. This information is not intended to [...] medication when interested. Bilateral cataracts Seeing the supply chain specialist Dr. Akbar at [facility]. Coronary artery disease This issue is stable [...]
--- OUTSIDE RECORDS SUMMARY | 2016-12-19 10:17 | External Medical Summary | Referral Summary ---
:1955 Author Organization [facility] [address] [place] [phone] Care Team Providers Name Role Phone Ted Francisco Primary Care Physician Encounter VC Date(s): 11/05/15 - 11/05/15 [facility] [address] [place] [phone]- Discharge Diagnosis: Adult-onset obesity Discharge Diagnosis: Diabetes Discharge Diagnosis: Hyperlipidemia Discharge Diagnosis: Hypertension Discharge Disposition: 01-Home or Self Care Attending Physician: Ayala Echevarria PA-C Admitting Physician: Ayala Echevarria PA-C Vital Signs Most recent to oldest [Reference Range]: 1 Temperature Tympanic [36.6-38.1 degC] 36.6 degC (11/05/15 7:59 AM) Peripheral Pulse Rate [60-100 bpm] 88 bpm (11/05/15 7:59 AM) Respiratory Rate [14-20 br/min] 18 br/min (11/05/15 7:59 AM) Blood Pressure [90-140/60-90 mmHg] 152/88 mmHg *HI* (11/05/15 7:59 AM) Problem List Condition Effective Dates Status [...] , # 4 boxes, 1 Refill(s), Pharmacy: [facility], 31 g x 8 mm (short). Uses 4 daily. Box of 100. Start Date: 10/19/15 Status: Orderedcitalopram 20 mg oral tablet 20 mg 1 tabs, Oral, Daily, # 90 tabs, 1 Refill(s), Pharmacy: [place] [id number], 1 tabs Oral Daily Start Date: 10/19/15 Status: Orderedgabapentin 100 mg oral capsule 100 mg 1 caps, Oral, TID, # 90 caps, 3 Refill(s), Pharmacy: [place] [id number], 1 caps Oral TID Start Date: 08/20/15 Status: OrderedHumaLOG KwikPen 100 units/mL subcutaneous solution 30 units, SubCutaneous, TIDAC, # 10 mL, 6 Refill(s), Pharmacy: [facility], 30units SubCutaneous TIDAC Start Date: 10/19/15 [...] Daily, # 30 tabs, 0 Refill(s), Pharmacy: [facility], 1 tabs Oral Daily Start Date: 07/09/15 Status: OrderedNorvasc 5 mg oral tablet 5 mg 1 tabs, Oral, Daily, # 90 tabs, 3 Refill(s), [facility] q4hr, # 1 Each, 2 Refill(s), Pharmacy: [facility] Start Date: 10/19/15 Status: OrderedSynthroid 88 mcg (0.088 mg) oral tablet 88 mcg 1 tabs, Oral, Daily, # 90 tabs, 1 Refill(s), Pharmacy: [facility], Note dose increase, 1 tabs Oral Daily Start Date: 10/19/15 Status: OrderedToujeo SoloStar 300 units/mL subcutaneous solution 48 units, SubCutaneous, Bedtime (once a day), # 9 Each, 1 Refill(s), Pharmacy: [facility], Note dose increase, 48 units [...] Daily, # 6 Each, 3 Refill(s), Pharmacy: [facility], [place] card if needed., 1.2 mg SubCutaneous Daily Start Date: 11/05/15 Status: OrderedZocor 20 mg oral tablet 20 mg 1 tabs, Oral, Bedtime (once a day), # 90 tabs, 3 Refill(s), [facility] 1 tabs Oral Bedtime (once a day) [...] 02/24/2014 Document Revised: 03/12/2015 Document Reviewed: 02/24/2014 [facility] Patient Information 2016 [employer]. Family Medicine Blood Glucose Monitoring, Adult Monitoring your blood glucose (also know as blood sugar) helps you to manage your diabetes. It also helps you and your health care provider monitor your diabetes and determine how well your treatment plan is working. WHY SHOULD YOU MONITOR YOUR BLOOD GLUCOSE? It can help you understand how food, exercise, and medicine affect your blood glucose. It allows you to know what your blood glucose is at any given moment. You can quickly tell if you are having low blood glucose (hypoglycemia) or high blood glucose (hyperglycemia). It can help you and your health care provider know how to adjust your medicines. It can help you understand how to manage an illness or adjust medicine for exercise. WHEN SHOULD YOU TEST? Your health care provider will help you decide how often you should check your blood glucose. This may depend on the type of diabetes you have, your diabetes control, or the types of medicines you are t aking. Be sure to write down all of your blood glucose readings so that this information can be reviewed with your health care provider. See below for examples of testing times that your health care provider may suggest. Type 1 Diabetes Test at least 2 times per day if your diabetes is well controlled, if you are using an insulin pump, or if you perform multiple daily injections. If your diabetes is not well controlled or if you are sick, you may need to test more often. It is a good idea to also test: Before every insulin injection. Before and after exercise. Between meals and 2 hours after a meal. Occasionally between 2:00 a.m. and 3:00 a.m. Type 2 Diabetes If you are taking insulin, test at least 2 times per day. However, it is best to test before every insulin injection. If you take medicines by mouth (orally), test 2 times a day. If you are on a controlled diet, test once a day. If your diabetes is not well controlled or if you are sick, you may need to monitor more often. HOW TO MONITOR YOUR BLOOD GLUCOSE Supplies Needed Blood glucose meter. Test strips for your meter. Each meter has its own strips. You must use the strips that go with your own meter. A pricking needle (lancet). A device that holds the lancet (lancing device). A journal or log book to write down your results. Procedure Wash your hands with soap and water. Alcohol is not preferred. Prick the side of your finger (not the tip) with the lancet. Gently milk the finger until a small drop of blood appears. Follow the instructions that come with your meter for inserting the test strip, applying blood to the strip, and using your blood glucose meter. Other Areas to Get Blood for Testing Some meters allow you to use other areas of your body (other than your finger) to test your blood. These areas are called alternative sites. The most common alternative sites are: The forearm. The thigh. The back area of the lower leg. The palm of the hand. The blood flow in these areas is slower. Therefore, the blood glucose values you get may be delayed, and the numbers are different from what you would get from your fingers. Do not use alternative sites if you think you are having hypoglycemia. Your reading will not be accurate. Always use a finger if you are having hypoglycemia. Also, if you cannot feel your lows (hypoglycemia unawareness), always use your fingers for your blood glucose checks. ADDITIONAL TIPS FOR GLUCOSE MONITORING Do not reuse lancets. Always carry your supplies with you. All blood glucose meters have a 24-hour "hotline" number to call if you have questions or need help. Adjust (calibrate) your blood glucose meter with a control solution after finishing a few boxes of strips. BLOOD GLUCOSE RECORD KEEPING It is a good idea to keep a daily record or log of your blood glucose readings. Most glucose meters, if not all, keep your glucose records stored in the meter. Some meters come with the ability to downl oad your records to your home computer. Keeping a record of your blood glucose readings is especially helpful if you are wanting to look for patterns. Make notes to go along with the blood glucose readi ngs because you might forget what happened at that exact time. Keeping good records helps you and your health care provider to work together to achieve good diabetes management. This information is not intended to replace advice given to you by your health care provider. Make sure you discuss any questions you have with your health care provider. Document Released: 02/22/2004 Document Revised: 03/12/2015 Document Reviewed: 07/14/2013 [facility] Patient Information 2016 [employer]. Hypertension Hypertension, commonly called high blood pressure, [...] 02/19/2006 Document Revised: 03/12/2015 Document Reviewed: 12/12/2013 [facility] Patient Information 2016 [employer] [facility]. Home Health Care Diabetes and Exercise Exercising regularly is important. It is not just about losing weight. It has many health benefits, such as: Improving your overall fitness, flexibility, and endurance. Increasing your bone density. Helping with weight control. Decreasing your body fat. Increasing your muscle strength. Reducing stress and tension. Improving your overall health. People with diabetes who exercise gain additional benefits because exercise: Reduces appetite. Improves the body's use of blood sugar (glucose). Helps lower or control blood glucose. Decreases blood pressure. Helps control blood lipids (such as cholesterol and triglycerides). Improves the body's use of the hormone insulin by: Increasing the body's insulin sensitivity. Reducing the body's insulin needs. Decreases the risk for heart disease because exercising: Lowers cholesterol and triglycerides levels. Increases the levels of good cholesterol (such as high-density lipoproteins [HDL]) in the body. Lowers blood glucose levels. YOUR ACTIVITY PLAN Choose an activity that you enjoy, and set realistic goals. To exercise safely , you should begin practicing any new physical activity slowly, and gradually increase the intensity of the exercise over ti me. Your health care provider or certified lactation educator can help create an activity plan that works for you. General recommendations include: Encouraging children to engage in at least 60 minutes of physical activity each day. Stretching and performing strength training exercises, such as yoga or weight lifting, at least 2 times per week. Performing a total of at least 150 minutes of moderate-intensity exercise each week, such as brisk walking or water aerobics. Exercising at least 3 days per week, making sure you allow no more than 2 consecutive days to pass without exercising. Avoiding long periods of inactivity (90 minutes or more). When you have to spend an extended period of time sitting down, take frequent breaks to walk or stretch. RECOMMENDATIONS FOR EXERCISING WITH TYPE 1 OR TYPE 2 DIABETES Check your blood glucose before exercising. If blood glucose levels are greater than 240 mg/dL, check for urine ketones. Do not exercise if ketones are present. Avoid injecting insulin into areas of the body that are going to be exercised. For example, avoid injecting insulin into: The arms when playing tennis. The legs when jogging. Keep a record of: Food intake before and after you exercise. Expected peak times of insulin action. Blood glucose levels before and after you exercise. The type and amount of exercise you have done. Review your records with your health care provider. Your health care provider will help you to develop guidelines for adjusting food intake and insulin amounts before and after exercising. If you take insulin or oral hypoglycemic agents, watch for signs and symptoms of hypoglycemia. They include: Dizziness. Shaking. Sweating. Chills. Confusion. Drink plenty of water while you exercise to prevent dehydration or heat stroke. Body water is lost during exercise and must be replaced. Talk to your health care provider before starting an exercise program to make sure it is safe for you. Remember, almost any type of activity is better than none. This information is not intended to replace advice given to you by your health care provider. Make sure you discuss any questions you have with your health care provider. Document Released: 05/11/2004 Document Revised: 03/12/2015 Document Reviewed: 07/29/2013 [facility] Patient Information 2016 [employer]. No follow up information was provided. Extracted from: Title: Office Visit Note- DM/HTN Author: Ayala Echevarria PA-C Date: recheck Assessment/Plan Adult-onset obesity Pt is discouraged because she has gained some weight since restarting on her insulin. After some discussion, pt was agreeable to start on Victoza to help with her blood sugars, and for weight loss. Pt was instructed on how to use the pen, and she did give herself her first injection in the office and did well. She will start with Victoza 0.6mg SQ x 1 week, then go up to 1.2mg rekha ly. Victoza pens sent to [facility] pharmacy and sample pen given in clinic. Ordered: Office Visit Level 3 Est 04571 Diabetes Her BG levels are improving, but still very high. Will increase her Toujeo to 48u atbedtime. Also, if her BG is >200 before meals, she is to take 40u of Humalog. If below 200,continue with 30u.I would likeher to recheck in clinic again next week to see how she is doing with the change in medication. Continue towork ondiet and exercise. Ordered: Office Visit Level 3 Est 36214 Hyperlipidemia She seems to be doing fine on the Zocor for now.Shehasn't started the CoQ10, but Iencouraged her to try this. She willstay on this for a whilefor now. I did send refills to her mail order pharmacy today. Ordered: Office Visit Level 3 Est 00211 Hypertension BP's seem to be becoming more stable on the Norvasc. She is feeling better. Will have her stay on this current dose for now. Again, recheck in 1 week. Ordered: Office Visit Level 3 Est 23860 Orders: amLODIPine, 5 mg 1 tabs, Oral, Daily, # 90 tabs, 3 Refill(s), Pharmacy: [facility], 1 tabs Oral Daily insulin glargine, 48 units, SubCutaneous, Bedtime (once a day), # 9 Each, 1 Refill(s), Pharmacy: [facility], Note dose increase, 48 units SubCutaneous Bedtime (once a day),x30 days liraglutide, 1.2 mg, SubCutaneous, Daily, # 6 Each, 3 Refill(s), Pharmacy: [facility], Has savings card if needed., 1.2 mg SubCutaneous Daily
--- OUTSIDE RECORDS SUMMARY | 2016-12-19 10:17 | External Medical Summary | Referral Summary ---
:1955 Author Organization [facility] Address [address] [place] [address] [place] [id number] Care Team Providers Name Role Phone Ted Francisco Primary Care Physician Encounter VC Date(s): 06/15/15 - 06/15/15 [facility] [address] [place] [address] [place] [phone] [phone] Discharge Diagnosis: Abdominal pain, lower Discharge Diagnosis: Screening for colon cancer Discharge Disposition: 01-Home or Self Care Attending Physician: Zay Benitez MD Admitting Physician: Zay Benitez MD Referring Physician: Ted Francisco MD Vital Signs Most recent to oldest [Reference Range]: 1 Temperature Tympanic [36.6-38.1 degC] 37 degC (06/15/15 1:23 PM) Blood Pressure [90-140/60-90 mmHg] 160/82 mmHg *HI* (06/15/15 1:23 PM) Problem List Condition Effective Dates Status [...] cap PO TID, # 90 caps, eRx: [id number], Take 1 cap PO QHS x 2 days , then 1 cap PO BID x 2 days, then 1 cap PO TID Start Date: 05/17/15 Status: OrderedHumaLOG KwikPen 100 units/mL subcutaneous solution 30 units, SubCutaneous, TIDAC, # 10 mL, 6 Refill(s), Pharmacy: [facility], 30units SubCutaneous TIDAC Start Date: 04/14/15 Status: Orderedhydrochlorothiazide 25 mg oral tablet 25 mg 1 tabs, Oral, Daily, # 90 tabs, 1 Refill(s), Pharmacy: [facility], 1 tabs Oral Daily Start [...] 11.9, # 4 boxes, 1 Refill(s), Pharmacy: [facility], USE 4 TIMES DAILY. Box of 100 strips. DX: E 11.9 Start Date: 04/14/15 Status: OrderedProAir HFA 90 mcg/inh inhalation aerosol 180 mcg 2 puffs, Inhalation, q4hr, # 1 Each, 2 Refill(s), Pharmacy: [facility] Start Date: 04/14/15 Status: OrderedSynthroid 75 mcg (0.075 mg) oral tablet 75 mcg 1 tabs, Oral, Daily, # 90 tabs, 0 Refill(s), Pharmacy: [facility], Note new dose, 1 tabs Oral Daily,x90 days Start Date: 06/04/15 Stop Date: 09/02/15 Status: OrderedToujeo SoloStar 300 units/mL subcutaneous solution 45 units, SubCutaneous, Bedtime (once a day), # 9 Each, 1 Refill(s), Pharmacy: [facility], 45 units SubCutaneous Bedtime (once a day), x30 days Start Date: 05/13/15 Stop Date: 07/12/15 Status: OrderedUnivasc 15 mg oral tablet 15 mg 1 tabs, Oral, BID, # 180 tabs, 1 Refill(s), Pharmacy: [facility], 1 tabs Oral BID Start Date: 04/14/15 Status: Ordered Results No data available for this section Immunizations Vaccine Date Refusal Reason tetanus/diphth/pertuss (Tdap) adult/adol 06/09/13 Procedures Procedure Date Related Diagnosis Body Site Cholecystectomy 1996 Carpal tunnel release Cataract extraction section Social History Social History Type Response Smoking Status Never smoker Assessment and Plan Extracted from: Title: Ambulatory Patient Education Author: Zay Benitez MD Date: Family Medicine Colonoscopy A colonoscopy is an exam to look at the entire large intestine (colon). This exam can help find problems such as tumors, polyps, inflammation, and areas of bleeding. The exam takes about 1 hour. LET YOUR HEALTH CARE PROVIDER KNOW ABOUT: Any allergies you have. All medicines you are taking, including vitamins, herbs, eye drops, creams, and rruv-vib-iqxstzo medicines. Previous problems you or members of your family have had with the use of anesthetics. Any blood disorders you have. Previous surgeries you have had. Medical conditions you have. RISKS AND COMPLICATIONS Generally, this is a safe procedure. However, as with any procedure, complications can occur. Possible complications include: Bleeding. Tearing or rupture of the colon wall. Reaction to medicines given during the exam. Infection (rare). BEFORE THE PROCEDURE Ask your health care provider about changing or stopping your regular medicines. You may be prescribed an oral bowel prep. This involves drinking a large amount of medicated liquid, starting the day before your procedure. The liquid will cause you to have multiple loose stool s until your stool is almost clear or light green. This cleans out your colon in preparation for the procedure. Do not eat or drink anything else once you have started the bowel prep, unless your health care provider tells you it is safe to do so. Arrange for someone to drive you home after the procedure. PROCEDURE You will be given medicine to help you relax (sedative). You will lie on your side with your knees bent. A long, flexible tube with a light and camera on the end (colonoscope) will be inserted through the rectum and into the colon. The camera sends video back to a computer screen as it moves through the colon. The colonoscope also releases carbon dioxide gas to inflate the colon. This helps your health care provider see the area better. During the exam, your health care provider may take a small tissue sample (biopsy) to be examined under a microscope if any abnormalities are found. The exam is finished when the entire colon has been viewed. AFTER THE PROCEDURE Do not drive for 24 hours after the exam. You may have a small amount of blood in your stool. You may pass moderate amounts of gas and have mild abdominal cramping or bloating. This is caused by the gas used to inflate your colon during the exam. Ask when your test results will be ready and how you will get your results. Make sure you get your test results. This information is not intended to replace advice given to you by your health care provider. Make sure you discuss any questions you have with your health care provider. Document Released: 02/16/2001 Document Revised: 12/10/2013 Document Reviewed: 10/27/2013 [employer] Patient Information 2015 [employer]. No follow up information was provided.
--- OUTSIDE RECORDS SUMMARY | 2016-12-19 10:17 | External Medical Summary | Referral Summary ---
:1955 Author Organization [facility] [address] [place] [phone] Care Team Providers Name Role Phone Ted Francisco Primary Care Physician Encounter VC Date(s): 04/14/15 - 04/14/15 [facility] [address] [place] [id number]- Discharge Diagnosis: Hypertension Discharge Diagnosis: Diabetic peripheral neuropathy Discharge Diagnosis: Diabetes Discharge Diagnosis: Asthma Discharge Diagnosis: Adult hypothyroidism Discharge Disposition: 01-Home or Self Care Attending Physician: Ayala Echevarria PA-C Admitting Physician: Ayala Echevarria PA-C Vital Signs Most recent to oldest [Reference Range]: 1 Peripheral Pulse Rate [60-100 bpm] 82 bpm (04/14/15 8:04 AM) Respiratory Rate [14-20 br/min] 18 br/min (04/14/15 8:04 AM) Blood Pressure [90-140/60-90 mmHg] 160/90 mmHg *HI* (04/14/15 8:04 AM) Problem List Condition Effective Dates Status [...] , # 4 boxes, 1 Refill(s), Pharmacy: [facility], 31 g x 8 mm (short). Uses 4 daily. Box of 100. Start Date: 12/17/14 Status: Orderedgabapentin 100 mg oral capsule See Instructions, Take 1 cap PO QHS x 2 days, then 1 cap PO BID x 2 days, then 1 cap PO TID, # 90 caps, 0 Refill(s), Pharmacy: [facility], Take 1 cap PO QHS x 2 days, then 1 cap PO BID x 2 days, then 1 cap PO TID Start Date: 04/14/15 Status: OrderedHumaLOG KwikPen 100 units/mL subcutaneous solution 30 units, SubCutaneous, TIDAC, # 10 mL, 6 Refill(s), Pharmacy: [facility], 30units SubCutaneous TIDAC Start Date: 04/14/15 Status: Orderedhydrochlorothiazide 25 mg oral tablet 25 mg 1 tabs, Oral, Daily, # 90 tabs, 1 Refill(s), Pharmacy: [facility], 1 tabs Oral Daily Start Date: 04/14/15 Status: OrderedMisc Medication eye drops for right eye glaucoma, 0 Refill(s) Start Date: 02/09/15 Status: OrderedNorco 7.5 mg-325 mg oral tablet 1 tabs, Oral, q12hr, as needed for pain, must last 30 days, # 60 tabs, 0 Refill( s) Start Date: 03/15/15 Status: OrderedONE TOUCH ULTRA TEST STRIPS ONE TOUCH ULTRA TEST STRIPS, See Instructions, USE 4 TIMES DAILY. Box of 100 strips. DX: E 11.9, # 4 boxes, 1 Refill(s), Pharmacy: [facility], USE 4 TIMES DAILY. Box of 100 strips. DX: E 11.9 Start Date: 04/14/15 Status: OrderedProAir HFA 90 mcg/inh inhalation aerosol 180 mcg 2 puffs, Inhalation, q4hr, # 1 Each, 2 Refill(s), Pharmacy: [id number] Start Date: 04/14/15 Status: OrderedSynthroid 75 mcg (0.075 mg) oral tablet 75 mcg 1 tabs, Oral, Daily, # 60 tabs, 0 Refill(s), Pharmacy: [facility], Note new dose,1 tabs Oral Daily Start Date: 02/11/15 Status: OrderedPatrice SoloStar 300 units/mL subcutaneous solution 45 units, SubCutaneous, Bedtime (once a day), # 4 mL, 0 Refill(s), samples given to patient (Rx) Start Date: 02/09/15 Stop Date: 03/11/15 Status: OrderedUnivasc 15 mg oral tablet 15 mg 1 tabs, Oral, BID, # 180 tabs, 1 Refill(s), Pharmacy: [facility], 1 tabs Oral BID Start Date: 04/14/15 Status: Ordered Results Chemistry Most recent to oldest [Reference Range]: 1 Sodium Lvl [135-144 mEq/L] 142 mEq/L (04/14/15 8:33 AM) Potassium Lvl [3.5-5.2 mEq/L] 4.0 mEq/L (04/14/15 8:33 AM) Chloride [99-111 mEq/L] 105 mEq/L (04/14/15 8:33 AM) CO2 [22-31 mEq/L] 28 mEq/L (04/14/15 8:33 AM) AGAP [3-20] 9 (04/14/15 8:33 AM) BUN [10-20 mg/dL] 27 mg/dL *HI* (04/14/15 8:33 AM) Glucose Lvl [70-99 mg/dL] 111 mg/dL *HI* (04/14/15 8:33 AM) Creatinine Lvl [0.57-1.11 mg/dL] 0.85 mg/dL (04/14/15 8:33 AM) eGFR [>60 mL/min] >60 mL/min 1 (04/14/15 8:33 AM) Calcium Lvl [8.9-10.5 mg/dL] 9.4 mg/dL (04/14/15 8:33 AM) TSH with Reflex Free T4 [0.35-4.94] 4.50 (04/14/15 8:33 AM) 1Result Comment: Multiply eGFR results by 1.21 for race. Immunizations Vaccine Date Refusal Reason tetanus/diphth/pertuss (Tdap) adult/adol 06/09/13 Procedures Procedure Date Related Diagnosis Body Site Collection of venous blood by venipuncture 04/14/15 Carpal tunnel release Cataract extraction section Cholecystectomy Social History Social History Type Response Smoking Status Never smoker Assessment and Plan Extracted from: Title: Ambulatory Patient Education Author: Ayala Echevarria PA-C Date: Family Medicine Asthma Asthma is a recurring condition in which the airways tighten and narrow. Asthma can make it difficult to breathe. It can cause coughing, wheezing, and shortness of breath. Asthma episodes, also called a sthma attacks, range from minor to life-threatening. Asthma cannot be cured, but medicines and lifestyle changes can help control it. CAUSES Asthma is believed to be caused by inherited (genetic) and environmental factors, but its exact cause is unknown. Asthma may be triggered by allergens, lung infections, or irritants in the air. Asthma t riggers are different for each person. Common triggers include: Animal dander. Dust mites. Cockroaches. Pollen from trees or grass. Mold. Smoke. Air pollutants such as dust, household pancake professional, hair sprays, aerosol sprays, paint fumes, strong chemicals, or strong odors. Cold air, weather changes, and winds (which increase molds and pollens in the air). Strong emotional expressions such as crying or laughing hard. Stress. Certain medicines (such as aspirin) or types of drugs (such as beta- blockers). Sulfites in foods and drinks. Foods and drinks that may contain sulfites include dried fruit, potato chips, and sparkling grape juice. Infections or inflammatory conditions such as the flu, a cold, or an inflammation of the nasal membranes (rhinitis). Gastroesophageal reflux disease (GERD). Exercise or strenuous activity. SYMPTOMS Symptoms may occur immediately after asthma is triggered or many hours later. Symptoms include: Wheezing. Excessive nighttime or grab driver coughing. Frequent or severe coughing with a common cold. Chest tightness. Shortness of breath. DIAGNOSIS The diagnosis of asthma is made by a review of your medical history and a physical exam. Tests may also be performed. These may include: Lung function studies. These tests show how much air you breathe in and out. Allergy tests. Imaging tests such as X-rays. TREATMENT Asthma cannot be cured, but it can usually be controlled. Treatment involves identifying and avoiding your asthma triggers. It also involves medicines. There are 2 classes of medicine used for asthma treatment: Controller medicines. These prevent asthma symptoms from occurring. They are usually taken every day. Reliever or rescue medicines. These quickly relieve asthma symptoms. They are used as needed and provide short-term relief. Your health care provider will help you create an asthma action plan. An asthma action plan is a written plan for managing and treating your asthma attacks. It includes a list of your asthma triggers an d how they may be avoided. It also includes information on when medicines should be taken and when their dosage should be changed. An action plan may also involve the use of a device called a peak flow meter. A peak flow meter measures how well the lungs are working. It helps you monitor your condition. HOME CARE INSTRUCTIONS Take medicines only as directed by your health care provider. Speak with your health care provider if you have questions about how or when to take the medicines. Use a peak flow meter as directed by your health care provider. Record and keep track of readings. Understand and use the action plan to help minimize or stop an asthma attack without needing to seek medical care. Control your home environment in the following ways to help prevent asthma attacks: Do not smoke. Avoid being exposed to secondhand smoke. Change your heating and air conditioning filter regularly. Limit your use of fireplaces and wood stoves. Get rid of pests (such as roaches and mice) and their droppings. Throw away plants if you see mold on them. Clean your floors and dust regularly. Use unscented cleaning products. Try to have someone else vacuum for you regularly. Stay out of rooms while they are being vacuumed and for a short while afterward. If you vacuum, use a dust mask from a hardware store, a double-la yered or microfilter vacuum lamp cleaner street light bag, or a vacuum lamp cleaner street light with a HEPA filter. Replace carpet with wood, tile, or vinyl [place]. Carpet can trap dander and dust. Use allergy-proof pillows, mattress covers, and box spring covers. Wash bed sheets and blankets every week in hot water and dry them in a dryer. Use blankets that are made of polyester or cotton. Clean bathrooms and janis with bleach. If possible, have someone repaint the us in these rooms with mold-resistant paint. Keep out of the rooms that are being cleaned and painted. Wash hands frequently. SEEK MEDICAL CARE IF: You have wheezing, shortness of breath, or a cough even if taking medicine to prevent attacks. The colored mucus you cough up (sputum) is thicker than usual. Your sputum changes from clear or white to yellow, green, chow, or bloody. You have any problems that may be related to the medicines you are taking (such as a rash, itching, swelling, or trouble breathing). You are using a reliever medicine more than 23 times per week. Your peak flow is still at 5079% of your personal best after following your action plan for 1 hour. You have a fever. SEEK IMMEDIATE MEDICAL CARE IF: You seem to be getting worse and are unresponsive to treatment during an asthma attack. You are short of breath even at rest. You get short of breath when doing very little physical activity. You have difficulty eating, drinking, or talking due to asthma symptoms. You develop chest pain. You develop a fast heartbeat. You have a bluish color to your lips or fingernails. You are light-headed, dizzy, or faint. Your peak flow is less than 50% of your personal best. MAKE SURE YOU: Understand these instructions. Will watch your condition. Will get help right away if you are not doing well or get worse. Document Released: 02/19/2006 Document Revised: 07/06/2014 Document Reviewed: 09/18/2013 ExitCare Patient Information 2015 [facility]. This information is not intended to replace advice given to you by your health care provider. Make sure you discuss any questions you have with your health care provider. Diabetes and Foot Care Diabetes may cause you to have problems because of poor blood supply ( circulation) to your feet and legs. This may cause the skin on your feet to become thinner, break easier, and heal more slowly. Your skin may become dry, and the skin may peel and crack. You may also have nerve damage in your legs and feet causing decreased feeling in them. You may not notice minor injuries to your feet that could l ead to infections or more serious problems. Taking care of your feet is one of the most important things you can do for yourself. HOME CARE INSTRUCTIONS Wear shoes at all times, even in the house. Do not go barefoot. Bare feet are easily injured. Check your feet daily for blisters, cuts, and redness. If you cannot see the bottom of your feet, use a mirror or ask someone for help. Wash your feet with warm water (do not use hot water) and mild soap. Then pat your feet and the areas between your toes until they are completely dry. Do not soak your feet as this can dry your skin. Apply a moisturizing lotion or petroleum jelly (that does not contain alcohol and is unscented) to the skin on your feet and to dry, brittle toenails. Do not apply lotion between your toes. Trim your toenails straight across. Do not dig under them or around the cuticle. File the edges of your nails with an emery board or nail file. Do not cut corns or calluses or try to remove them with medicine. Wear clean socks or stockings every day. Make sure they are not too tight. Do not wear knee-high stockings since they may decrease blood flow to your legs. Wear shoes that fit properly and have enough cushioning. To break in new shoes, wear them for just a few hours a day. This prevents you from injuring your feet. Always look in your shoes before you put them on to be sure there are no objects inside. Do not cross your legs. This may decrease the blood flow to your feet. If you find a minor scrape, cut, or break in the skin on your feet, keep it and the skin around it clean and dry. These areas may be cleansed with mild soap and water. Do not cleanse the area with peroxide, alcohol, or iodine. When you remove an adhesive bandage, be sure not to damage the skin around it. If you have a wound, look at it several times a day to make sure it is healing. Do not use heating pads or hot water bottles. They may burn your skin. If you have lost feeling in your feet or legs, you may not know it is happening until it is too late. Make sure your health care provider performs a complete foot exam at least annually or more often if you have foot problems. Report any cuts, sores, or bruises to your health care provider immediately. SEEK MEDICAL CARE IF: You have an injury that is not healing. You have cuts or breaks in the skin. You have an ingrown nail. You notice redness on your legs or feet. You feel burning or tingling in your legs or feet. You have pain or cramps in your legs and feet. Your legs or feet are numb. Your feet always feel cold. SEEK IMMEDIATE MEDICAL CARE IF: There is increasing redness, swelling, or pain in or around a wound. There is a red line that goes up your leg. Pus is coming from a wound. You develop a fever or as directed by your health care provider. You notice a bad smell coming from an ulcer or wound. Document Released: 02/16/2001 Document Revised: 10/22/2013 Document Reviewed: 07/29/2013 [facility] Patient Information 2015 [employer] [facility]. This information is not intended to replace advice given to you by your health care provider. Make sure you discuss any questions you have with your health care provider. Hypertension Hypertension, commonly called high blood pressure, [...] 02/19/2006 Document Revised: 07/06/2014 Document Reviewed: 12/12/2013 ExitCare Patient Information 2015 [employer]. This information is not intended to replace [...] hormone). This hormone tells the thyroid to die turner more hormone. SYMPTOMS Lethargy (feeling as though [...] 02/19/2006 Document Revised: 05/13/2012 Document Reviewed: 10/09/2008 [facility] Patient Information 2015 [employer]. This information is not intended to replace advice given to you by your health care provider. Make sure you discuss any questions you have with your health care provider. Peripheral Neuropathy Peripheral neuropathy is a type of nerve damage. It affects nerves that carry signals between the spinal cord and other parts of the body. These are called peripheral nerves. With peripheral neuropathy, one nerve or a group of nerves may be damaged. CAUSES Many things can damage peripheral nerves. For some people with peripheral neuropathy, the cause is unknown. Some causes include: Diabetes. This is the most common cause of peripheral neuropathy. Injury to a nerve. Pressure or stress on a nerve that lasts a long time. Too little vitamin B. Alcoholism can lead to this. Infections. Autoimmune diseases, such as multiple sclerosis and systemic lupus erythematosus. Inherited nerve diseases. Some medicines, such as cancer drugs. Toxic substances, such as lead and mercury. Too little blood flowing to the legs. Kidney disease. Thyroid disease. SIGNS AND SYMPTOMS Different people have different symptoms. The symptoms you have will depend on which of your nerves is damaged. Common symptoms include: Loss of feeling (numbness) in the feet and hands. Tingling in the feet and hands. Pain that lux. Very sensitive skin. Weakness. Not being able to move a part of the body (paralysis). Muscle twitching. Clumsiness or poor coordination. Loss of balance. Not being able to control your bladder. Feeling dizzy. Sexual problems. DIAGNOSIS Peripheral neuropathy is a symptom, not a disease. Finding the cause of peripheral neuropathy can be hard. To figure that out, your health care provider will take a medical history and do a physical exa m. A neurological exam will also be done. This involves checking things affected by your brain, spinal cord, and nerves (nervous system). For example, your health care provider will check your reflexes, how you move, and what you can feel. Other types of tests may also be ordered, such as: Blood tests. A test of the fluid in your spinal cord. Imaging tests, such as CT scans or an MRI. Electromyography (EMG). This test checks the nerves that control muscles. Nerve conduction velocity tests. These tests check how fast messages pass through your nerves. Nerve biopsy. A small piece of nerve is removed. It is then checked under a microscope. TREATMENT Medicine is often used to treat peripheral neuropathy. Medicines may include: Pain-relieving medicines. Prescription or aofj-pww-hpssaza medicine may be suggested. Antiseizure medicine. This may be used for pain. Antidepressants. These also may help ease pain from neuropathy. Lidocaine. This is a numbing medicine. You might wear a patch or be given a shot. Mexiletine. This medicine is typically used to help control irregular heart rhythms. Surgery. Surgery may be needed to relieve pressure on a nerve or to destroy a nerve that is causing pain. Physical therapy to help movement. Assistive devices to help movement. HOME CARE INSTRUCTIONS Only take oouj-fza-khlpufi or prescription medicines as directed by your health care provider. Follow the instructions carefully for any given medicines. Do not take any other medicines without fir st getting approval from your health care provider. If you have diabetes, work closely with your health care provider to keep your blood sugar under control. If you have numbness in your feet: Check every day for signs of injury or infection. Watch for redness, warmth, and swelling. Wear padded socks and comfortable shoes. These help protect your feet. Do not do things that put pressure on your damaged nerve. Do not smoke. Smoking keeps blood from getting to damaged nerves. Avoid or limit alcohol. Too much alcohol can cause a lack of B vitamins. These vitamins are needed for healthy nerves. Develop a good support system. Coping with peripheral neuropathy can be stressful. Talk to a mental health specialist or join a support group if you are struggling. Follow up with your health care provider as directed. SEEK MEDICAL CARE IF: You have new signs or symptoms of peripheral neuropathy. You are struggling emotionally from dealing with peripheral neuropathy. You have a fever. SEEK IMMEDIATE MEDICAL CARE IF: You have an injury or infection that is not healing. You feel very dizzy or begin vomiting. You have chest pain. You have trouble breathing. Document Released: 02/09/2003 Document Revised: 11/01/2011 Document Reviewed: 10/27/2013 ExitCare Patient Information 2015 [employer]. This information is not intended to replace advice given to you by your health care provider. Make sure you discuss any questions you have with your health care provider. No follow up information was provided. Extracted from: Title: Office Visit Note- med ck Author: Ayala Echevarria PA-C Date: 04/14 Assessment/Plan Adult hypothyroidism Will check TSH again today. If normal range, will sent a week's worth to local pharmacy as well as 90 day supply to mail order. If still elevated, adjust Synthroid. Ordered: Office Visit Level 4 Est 40232 TSH with Reflex Free T4 Asthma Albuterol inhaler refilled at local pharmacy. Diabetes She is doing well at this time. Is going to f/u with Dr. Francisco on 05/13/15. Refilled Humalog and strips, but she has enough long-acting insulin to get her through until her next appt. Ordered: Office Visit Level 4 Est 25442 Diabetic peripheral neuropathy I don't have any samples of Lyrica for the pt today, and I don't think her insurance will pay for this. Will first try Gabapentin to see if this helps with her pain/numb ness/tingling. She states that her sister takes this med, and gets very drowsy with it. Will slowlyincrease dose to TID to see how she does. If she is very drowsy with it, can try Lyrica. Pt agrees with this plan. Ordered: Office Visit Level 4 Est 06282 Hypertension Will recheck BMP today. Her BP was still a little elevated today. Advised pt to check BP's at home, and bring this log in to her next appt. May need to add another agent. Ordered: Basic Metabolic Panel Office Visit Level 4 Est 91449 Orders: albuterol, 180 mcg 2 puffs, Inhalation, q4hr, # 1 Each, 2 Refill(s), Pharmacy: [facility]28 gabapentin, See Instructions, Take 1 cap PO QHS x 2 days, then 1 cap PO BID x 2 days, then 1 cap PO TID, # 90 caps, 0 Refill(s), Pharmacy: [facility], Take 1 cap PO QHS x 2 days, then 1 cap PO BID x 2 days, then 1 cap PO TID hydrochlorothiazide, 25 mg 1 tabs, Oral, Daily, # 90 tabs, 1 Refill(s), Pharmacy: [facility], 1 tabs Oral Daily insulin lispro, 30 units, SubCutaneous, TIDAC, # 10 mL, 6 Refill(s), Pharmacy : [facility], 30 units SubCutaneous TIDAC Misc Medication, ONE TOUCH ULTRA TEST STRIPS, See Instructions, USE 4 TIMES DAILY. Box of 100 strips. DX: E 11.9, # 4 boxes, 1 Refill(s), Pharmacy: [facility], USE 4 TIMES DAILY. Box of 100 strips. DX: E 11.9 moexipril, 15 mg 1 tabs, Oral, BID, # 180 tabs, 1 Refill(s), Pharmacy: [facility], 1 tabs Oral BID
--- OUTSIDE RECORDS SUMMARY | 2016-12-19 10:17 | External Medical Summary | Referral Summary ---
:1955 Author Organization [facility] Address [address] [place] [address] [place] [address] Care Team Providers Name Role Phone Ted Francisco Primary Care Physician Encounter VC Date(s): 05/13/15 - 05/13/15 [facility] [address] [place] [phone] [place] Discharge Disposition: 01-Home or Self Care Attending Physician: Ted Francisco MD Admitting Physician: Ted Francisco MD Vital Signs Most recent to oldest [Reference Range]: 1 Temperature Tympanic [36.6-38.1 degC] 36.2 degC *LOW* (05/13/15 8:07 AM) Blood Pressure [90-140/60-90 mmHg] 130/75 mmHg (05/13/15 8:07 AM) Problem List Condition Effective Dates Status [...] TID, # 90 caps, 0 Refill(s), Pharmacy: [facility], Take 1 cap PO QHS x 2 days, then 1 cap PO BID x 2 days, then 1 cap PO TID Start Date: 04/14/15 Status: OrderedHumaLOG KwikPen 100 units/mL subcutaneous solution 30 units, SubCutaneous, TIDAC, # 10 mL, 6 Refill(s), Pharmacy: [facility], 30units SubCutaneous TIDAC Start Date: 04/14/15 Status: Orderedhydrochlorothiazide 25 mg oral tablet 25 mg 1 tabs, Oral, Daily, # 90 tabs, 1 Refill(s), Pharmacy: [facility], 1 tabs Oral Daily Start Date: [...] # 4 boxes, 1 Refill(s), Pharmacy: [facility], USE 4 TIMES DAILY. Box of 100 strips. DX: E 11.9 Start Date: 04/14/15 Status: OrderedProAir HFA 90 mcg/inh inhalation aerosol 180 mcg 2 puffs, Inhalation, q4hr, # 1 Each, 2 Refill(s), Pharmacy: [facility] Start Date: 04/14/15 Status: OrderedSynthroid 75 mcg (0.075 mg) oral tablet 75 mcg 1 tabs, Oral, Daily, # 30 tabs, 5 Refill(s), Pharmacy: [facility], Note new dose,1 tabs Oral Daily,x30 days Start Date: 05/13/15 Stop Date: 11/09/15 Status: OrderedToujeo SoloStar 300 units/mL subcutaneous solution 45 units, SubCutaneous, Bedtime (once a day), # 9 Each, 1 Refill(s), Pharmacy: [facility], 45 units SubCutaneous Bedtime (once a day), x30 days Start Date: 05/13/15 Stop Date: 07/12/15 Status: OrderedUnivasc 15 mg oral tablet 15 mg 1 tabs, Oral, BID, # 180 tabs, 1 Refill(s), Pharmacy: [facility], 1 tabs Oral BID Start Date: 04/14/15 Status: Ordered Results Chemistry Most recent to oldest [Reference Range]: 1 Sodium Lvl [135-144 mEq/L] 140 mEq/L (05/13/15 8:11 AM) Potassium Lvl [3.5-5.2 mEq/L] 4.4 mEq/L (05/13/15 8:11 AM) Chloride [99-111 mEq/L] 105 mEq/L (05/13/15 8:11 AM) CO2 [22-31 mEq/L] 27 mEq/L (05/13/15 8:11 AM) AGAP [3-20] 8 (05/13/15 8:11 AM) BUN [10-20 mg/dL] 38 mg/dL *HI* (05/13/15 8:11 AM) Glucose Lvl [70-99 mg/dL] 99 mg/dL (05/13/15 8:11 AM) Creatinine Lvl [0.57-1.11 mg/dL] 1.00 mg/dL (05/13/15 8:11 AM) eGFR [>60 mL/min] 57 mL/min 1 *ABN* (05/13/15 8:11 AM) Calcium Lvl [8.9-10.5 mg/dL] 9.8 mg/dL (05/13/15 8:11 AM) Albumin Lvl [3.5-5.0 gm/dL] 3.5 gm/dL (05/13/15 8:11 AM) Total Protein [6.4-8.3 gm/dL] 6.4 gm/dL (05/13/15 8:11 AM) Globulin [1.8-4.0 gm/dL] 2.9 gm/dL (05/13/15 8:11 AM) ALT [0-55 U/L] 28 U/L (05/13/15 8:11 AM) AST [5-34 U/L] 38 U/L *HI* (05/13/15 8:11 AM) Alk Phos [40-150 U/L] 117 U/L (05/13/15 8:11 AM) Bili Total [0.2-1.2 mg/dL] 0.3 mg/dL (05/13/15 8:11 AM) Lipase Lvl [8-78 U/L] 21 U/L (05/13/15 8:11 AM) Amylase Lvl [25-125 U/L] 48 U/L (05/13/15 8:11 AM) Hgb A1c [4.1-5.6 %] 6.7 % *HI* (05/13/15 8:11 AM) eAvg Glucose 145.6 mg/dL (05/13/15 8:11 AM) 1Result Comment: Multiply eGFR results by 1.21 for race. Immunizations Vaccine Date Refusal Reason tetanus/diphth/pertuss (Tdap) adult/adol 06/09/13 Procedures Procedure Date Related Diagnosis Body Site Collection of venous blood by venipuncture 05/13/15 Carpal tunnel release Cataract extraction section Cholecystectomy Social History Social History Type Response Smoking Status Never smoker Assessment and Plan Extracted from: Title: Ambulatory Patient Education Author: Ted Francisco MD Date: Emergency Medicine Abdominal Pain [...] any discomfort you are experiencing: Only take flwi-ber-xveqshw or prescription medicines as directed by your [...] 11/29/2005 Document Revised: 02/24/2014 Document Reviewed: 10/29/2013 [facility] Information 2015 [email or web address]. No follow up information was provided. Extracted from: Title: Office Visit Note Author: Ted Francisco MD Date: 05/13/15 Assessment/Plan Abdominal pain CT abd/pelvis today. Lab and xray pending. To ER if worse. Consult with Dr. SPAIN for evaluation and needs colonscopy anyway. Ordered: Amylase Level CT Abdomen w/ + w/o Contrast Lipase Level XR Chest 2 Views Acute URI The patient's issue is nearly or completely resolved. There is no further issues or testing desired by them at this time. Adult hypothyroidism This issue was reviewed, appears stable, and current therapy continued except as mentioned. Appropriate lab was reviewed from the most recent appropriate entry and lab was o rdered if needed in the cpoe/nursing orders, and follow up recommended generally in 90 days and no later then six months. Refill meds. Adult-onset obesity Diet and exercise as tolerated and feasible. Consider medication when interested. Bilateral cataracts The patient's issue is nearly or completely resolved. There is no further issues or testing desired by them at this time. Ok to drive per her eyespecialist per her. Coronary artery disease This issue was reviewed, [...] eye exams, foot exams, and regular care. Please make the medication adjustments we discussed. Please notify the office for any difficulties or concerns. Toujeo to 50 units qhs per her request due to slgihtly elevated am bgms. Samples of the new medication were provided as a courtesy. Side effects were discussed and follow up was recommended. Samples given as a courtesy. Ordered: Comprehensive Metabolic Panel Hemoglobin A1c Hypertension This issue was reviewed, appears stable, and current therapy continued except as mentioned. Appropriate lab was reviewed from the most recent appropriate entry and lab was ordered if ne eded in the cpoe/nursing orders, and follow up recommended generally in 90 days and no later then six months. Refill meds. The patient had an elevated blood pressure reading and is to monitor their bp and call with a report if consistently > 140/90. LUQ pain See above.45 minutes were utilized in care and coordination for this patient. Greater then 50% of the time was used for counseling and/or coordination of the patients care. Orders: insulin glargine, 45 units, SubCutaneous, Bedtime (once a day), # 9 Each, 1 Refill(s), Pharmacy: [facility], 45 units SubCutaneous Bedtime (once a day),x30 days levothyroxine, 75 mcg 1 tabs, Oral, Daily, # 30 tabs, 5 Refill(s), Pharmacy: [facility], Note new dose, 1 tabs Oral Daily,x30 days
--- OUTSIDE RECORDS SUMMARY | 2016-12-19 10:17 | External Medical Summary | Referral Summary ---
:1955 Author Organization [facility] Address [address] [place] [address] [place] [address] Care Team Providers Name Role Phone Ted Francisco Primary Care Physician Encounter VC Date(s): 03/15/15 - 03/15/15 [facility] [address] [place] [phone] [place] Discharge Disposition: 01-Home or Self Care Attending Physician: Ted Francisco MD Admitting Physician: Ted Francisco MD Vital Signs Most recent to oldest [Reference Range]: 1 Blood Pressure [90-140/60-90 mmHg] 138/78 mmHg (03/15/15 8:37 AM) Problem List Condition Effective Dates Status [...] , # 4 boxes, 1 Refill(s), Pharmacy: [facility]/pharmacy, 31 g x 8 mm (short). Uses 4 daily. Box of 100. Start Date: 12/17/14 Status: Ordereddoxycycline hyclate 100 mg oral tablet 100 mg 1 tabs, Oral, BID, X 10 days, # 20 tabs, 0 Refill(s), Pharmacy: [facility], 1 tabs Oral BID,x10 days Start Date: 03/12/15 Stop Date: 03/22/15 Status: Orderedhydrochlorothiazide 25 mg oral tablet 25 mg 1 tabs, Oral, Daily, # 90 tabs, 0 Refill(s), Pharmacy: [facility], 1 tabs Oral Daily Start [...] 11.9, # 4 boxes, 1 Refill(s), [facility], USE 4 TIMES DAILY. Box of 100 strips. DX: E 11.9 Start Date: 12/17/14 Status: OrderedProAir HFA 90 mcg/inh inhalation aerosol 2 puffs, Inhalation, q4hr, # 1 Each, 2 Refill(s), Pharmacy: [facility] Start Date: 05/28/14 Status: OrderedSynthroid 75 mcg (0.075 mg) oral tablet 75 mcg 1 tabs, Oral, Daily, # 60 tabs, 0 Refill(s), Pharmacy: [facility], Note new dose,1 tabs Oral Daily Start Date: 02/11/15 Status: OrderedToujeo SoloStar 300 units/mL subcutaneous solution 45 units, SubCutaneous, Bedtime (once a day), # 4 mL, 0 Refill(s), samples given to patient (Rx) Start Date: 02/09/15 Stop Date: 03/11/15 Status: OrderedUnivasc 15 mg oral tablet 15 mg 1 tabs, Oral, Daily, # 90 tabs, 1 Refill(s), Pharmacy: [facility], 1 tabs Oral Daily Start Date: [...] Patient Education Author: Ted Francisco MD Date: Family Medicine Abscess An abscess is an infected area that contains a collection of pus and debris. It can occur in almost any part of the body. An abscess is also known as a furuncle or boil. CAUSES An abscess occurs when tissue gets infected. This can occur from blockage of oil or sweat glands, infection of hair follicles, or a minor injury to the skin. As the body tries to fight the infection, pu s collects in the area and creates pressure under the skin. This pressure causes pain. People with weakened immune systems have difficulty fighting infections and get certain abscesses more often. SYMPTOMS Usually an abscess develops on the skin and becomes a painful mass that is red , warm, and tender. If the abscess forms under the skin, you may feel a moveable soft area under the skin. Some abscesses br eak open (rupture) on their own, but most will continue to get worse without care. The infection can spread deeper into the body and eventually into the bloodstream, causing you to feel ill. DIAGNOSIS Your caregiver will take your medical history and perform a physical exam. A sample of fluid may also be taken from the abscess to determine what is causing your infection. TREATMENT Your caregiver may prescribe antibiotic medicines to fight the infection. However, taking antibiotics alone usually does not cure an abscess. Your caregiver may need to make a small cut (incision) in th e abscess to drain the pus. In some cases, gauze is packed into the abscess to reduce pain and to continue draining the area. HOME CARE INSTRUCTIONS Only take jzch-dqe-fsmrcwm or prescription medicines for pain, discomfort , or fever as directed by your caregiver. If you were prescribed antibiotics, take them as directed. Finish them even if you start to feel better. If gauze is used, follow your caregiver's directions for changing the gauze. To avoid spreading the infection: Keep your draining abscess covered with a bandage. Wash your hands well. Do not share personal care items, towels, or whirlpools with others. Avoid skin contact with others. Keep your skin and clothes clean around the abscess. Keep all follow-up appointments as directed by your caregiver. SEEK MEDICAL CARE IF: You have increased pain, swelling, redness, fluid drainage, or bleeding. You have muscle aches, chills, or a general ill feeling. You have a fever. MAKE SURE YOU: Understand these instructions. Will watch your condition. Will get help right away if you are not doing well or get worse. Document Released: 11/29/2005 Document Revised: 08/20/2012 Document Reviewed: 05/03/2012 [facility] Patient Information 2015 [employer]. This information is not intended to replace advice given to you by your health care provider. Make sure you discuss any questions you have with your health care provider. No follow up information was provided. Extracted from: Title: Office Visit Note Author: Ted Francisco MD Date: 03/15/15 Assessment/Plan Cellulitis and abscess of lower extremity 28-FEB-2015 18:42:15<$> Rocephin 1 Gram IM. Continue doxycycline. Recheck in 3 days or to ER if worse. The patient has family members present who are agreeable with today's plan and have no additional concerns or requests. Father is here. Impression: There is soft tissue edema overlying the dorsum of the metatarsals, without definite associated bony abnormality. No acute osseous abnormality is demonstrated. [1] Coronary artery disease This issue was reviewed, [...]
--- OUTSIDE RECORDS SUMMARY | 2016-12-19 10:17 | External Medical Summary | Continuity of Care Document ---
:1955 Author Organization [facility] Allergies Medications Problems Procedures Results Encounters ACCT No. Visit Discharge Status Pt. Type Provider Facility Loc./Unit Complaint Date/Time [id number] 04/29/2013 04/29/2013 CLS Outpatient 13:48:00 23:59:59 [id number] 03/12/2013 03/12/2013 CLS Outpatient 08:18:00 23:59:59
--- OUTSIDE RECORDS SUMMARY | 2016-12-19 10:17 | External Medical Summary | Referral Summary ---
:1955 Author Organization [facility] Address [address] [place] [address] [place] [address] Care Team Providers Name Role Phone Ted Francisco Primary Care Physician Encounter VC Date(s): 12/17/14 - 12/17/14 [facility] [address] [place] [phone] [place] Discharge Disposition: [...] Daily, # 90 tabs, 0 Refill(s), Pharmacy: [facility], 1 tabs Oral Daily Start Date: 12/07/14 Status: OrderedLantus Solostar Pen 100 units/mL subcutaneous solution 45 units, SubCutaneous, Bedtime (once a day), Solostar pens. 3 mo supply: dispense 3 boxes. Dx: E11.9, # 45 mL, 0 Refill(s), other reason (Rx), Pt requests 3 mo supply., 40 units SubCutaneous Bedtime (once a day),Instr: Solostar pens. 3 mo supply: disp... Start Date: 12/17/14 Status: OrderedNovoLOG FlexPen 100 units/mL subcutaneous solution 40 units, SubCutaneous, TIDAC, # 45 mL, 0 Refill(s), Pharmacy: [facility] pharmacy, 40 units SubCutaneous TIDAC,x90 days Start Date: 12/07/14 Stop Date: 03/07/15 Status: OrderedONE TOUCH ULTRA TEST STRIPS ONE TOUCH ULTRA TEST STRIPS, See Instructions, USE 4 TIMES DAILY. Box of 100 strips. DX: E 11.9, # 4 boxes, 1 Refill(s), Pharmacy: [facility], USE 4 TIMES DAILY. Box of 100 strips. DX: E 11.9 Start Date: 12/17/14 Status: OrderedProAir HFA 90 mcg/inh inhalation aerosol 2 puffs, Inhalation, q4hr, # 1 Each, 2 Refill(s), Pharmacy: [facility] Start Date: 05/28/14 Status: OrderedSynthroid 50 mcg (0.05 mg) oral tablet 50 mcg 1 tabs, Oral, Daily, # 60 tabs, 0 Refill(s), Pharmacy: [facility], 1 tabs Oral Daily,x60 days Start Date: 12/17/14 Stop Date: 02/15/15 Status: OrderedUnivasc 15 mg oral tablet 15 mg 1 tabs, Oral, Daily, # 90 tabs, 0 Refill(s), Pharmacy: [facility], 1 tabs Oral Daily Start Date: 12/07/14 Status: Ordered Results No data available for [...] for balloon angioplasty is percutaneous transluminal angioplasty (WOOD SETTER). In this procedure, a catheter with a [...] 05/11/2004 Document Revised: 07/06/2014 Document Reviewed: 04/23/2012 [facility]. This information is not [...] lab, and f/u have been discussed. Diabetes museum educator nurse met with her briefly. Reschedule with NN visual educator also. Not using short needles effectively [...]
--- OUTSIDE RECORDS SUMMARY | 2016-12-19 10:17 | External Medical Summary | Referral Summary ---
:1955 Author Organization [facility] [address] [place] [address] Care Team Providers Name Role Phone Ted Francisco Primary Care Physician Encounter VC Date(s): 04/19/16 - 04/19/16 [facility] [address] [place] [phone] [place] Discharge Diagnosis: Drug noncompliance Discharge Diagnosis: Hyperlipidemia Discharge Diagnosis: Diabetes Discharge Diagnosis: Adult hypothyroidism Discharge Diagnosis: Hypertension Discharge Diagnosis: Adult-onset obesity Discharge Disposition: 01-Home or Self Care Attending Physician: Ayala Echevarria PA-C Admitting Physician: Ayala Echevarria PA-C Vital Signs Most recent to oldest [Reference Range]: 1 Temperature Oral [35.8-37.3 degC] 36.9 degC (04/19/16 8:23 AM) Peripheral Pulse Rate [60-100 bpm] 88 bpm (04/19/16 8:23 AM) Respiratory Rate [14-20 br/min] 18 br/min (04/19/16 8:23 AM) Blood Pressure [90-140/60-90 mmHg] 181/98 mmHg *HI* (04/19/16 8:23 AM) Problem List Condition Effective Dates Status [...] daily, # 20 mL, 5 Refill(s), Pharmacy: [facility], To replace Patrice, Inject 53u SQ daily Start Date: 04/14/16 Status: OrderedBD pen needles BD pen needles, See Instructions, 31 g x 8 mm (short). Uses 5 daily. Box of 100. , # 4 boxes, 11 Refill(s), Pharmacy: [facility], 31 g x 8 mm (short). Uses 5 daily. Box of 100. Start Date: 04/14/16 Status: Orderedcitalopram 20 mg oral tablet 20 mg 1 tabs, Oral, Daily, # 90 tabs, 1 Refill(s), Pharmacy: [facility], 1 tabs Oral Daily Start Date: 02/25/16 Status: Orderedgabapentin 100 mg oral capsule 100 mg 1 caps, Oral, TID, # 90 caps, 3 Refill(s), Pharmacy: [facility], 1 caps Oral TID Start Date: 01/11/16 Status: OrderedhydroCHLOROthiazide 25 mg oral tablet 25 mg 1 tabs, Oral, Daily, # 90 tabs, 1 Refill(s), Pharmacy: [facility], 1 tabs Oral Daily Start Date: 02/25/16 Status: OrderedMisc Medication eye drops for right eye glaucoma, 0 Refill(s) Start Date: 02/09/15 Status: OrderedNorvasc 5 mg oral tablet 5 mg 1 tabs, Oral, Daily, # 90 tabs, 3 Refill(s), Pharmacy: [facility], 1 tabs Oral Daily Start Date: 11/05/15 Status: OrderedNovoLOG FlexPen 100 units/mL subcutaneous solution 30 units, SubCutaneous, TIDAC, # 90 mL, 5 Refill(s), Pharmacy: [facility], Toreplace Humalog, 30 units SubCutaneous TIDAC Start Date: 04/14/16 Status: OrderedONE TOUCH ULTRA TEST STRIPS ONE TOUCH ULTRA TEST STRIPS, See Instructions, USE 4 TIMES DAILY. Box of 100 strips. DX: E 11.9, # 4 boxes, 11 Refill(s), Pharmacy: [facility], USE 4 TIMES DAILY. Box of 100 strips. DX: E 11.9 Start Date: 04/14/16 Status: OrderedProAir HFA 90 mcg/inh inhalation aerosol 180 mcg 2 puffs, Inhalation, q4hr, # 1 Each, 2 Refill(s), Pharmacy: [facility] Start Date: 02/25/16 Status: OrderedSynthroid 100 mcg (0.1 mg) oral tablet 100 mcg 1 tabs, Oral, Daily, # 90 tabs, 0 Refill(s), Pharmacy: [facility], Note new dose, 1 tabs Oral Daily Start Date: 04/19/16 Status: OrderedUnivasc 15 mg oral tablet 15 mg 1 tabs, Oral, BID, # 180 tabs, 1 Refill(s), Pharmacy: [facility], 1 tabs Oral BID Start Date: 10/19/15 Status: OrderedVictoza 18 mg/3 mL subcutaneous solution 1.8 mg, SubCutaneous, Daily, # 9 mL, 5 Refill(s), Pharmacy: [facility], Note dose increase, 1.8 mg SubCutaneous Daily Start Date: 04/14/16 Status: OrderedZocor 40 mg oral tablet 40 mg 1 tabs, Oral, Bedtime (once a day), # 90 tabs, 1 Refill(s), [facility] Note new dose, 1 tabs Oral Bedtime (once a day) Start Date: 04/19/16 Status: Ordered Results No data available for this section Immunizations Given and Recorded Vaccine Date Status [...] Plan Extracted from: Title: Office Visit Note- Discuss Author: Ayala Echevarria PA-C Date: labs Assessment/Plan Adult hypothyroidism Although she stopped doing her insulin for a while, she does state that she has been taking her Synthroid every day. Would like to increase Synthroid to 100mcg at this time. Recheck TSH in 6weeks with appt. Ordered: levothyroxine, 100 mcg 1 tabs, Oral, Daily, # 90 tabs, 0 Refill(s), Pharmacy: [facility], Note new dose, 1 tabs Oral Daily Office Visit Level 4 Est 05019 Adult-onset obesity Again advised to work on diet and exercise. Would help improve diabetes, cholesterol, thyroid meds, etc. Ordered: Office Visit Level 4 Est 20628 Diabetes Very difficult to adjust her medications when she stops taking them for periods of time. I discussed with her that she cannot stop taking her insulin, even/especially when she is sick. She needs to c heck her BG levels often if she is not eating well or sick. Can adjust her Novolog if needed. I just increased her basal insulin (Basaglar) to 53 units, and will have her stay on current doses of Novolo g. She is to bring in a glucose log in a few weeks to adjust insulin. Recheck A1C in 3 months. Ordered: Office Visit Level 4 Est 54308 Drug noncompliance Historically, she has self-discontinued meds/insulin often in the past. D/w her the importance of taking the medication, and also the importance of letting us know if she stops her medication. Ordered: Office Visit Level 4 Est 73140 Hyperlipidemia Herlipids have improved some, but LDL is still very high. We discussed trying to switch to a different statin drug in order to do high dose, but she states she has tried Lipitor in the past, and it caused achiness. Will recheck lipids in 3 months, and can add Zetia if LDL is still >200. Would like to get LDL down closer to 70-100. Work on diet and exercise. Ordered: simvastatin, 40 mg 1 tabs, Oral, Bedtime (once a day), # 90 tabs, 1 Refill( s), Pharmacy: [facility], Note new dose, 1 tabs Oral Bedtime (once a day) Office Visit Level 4 Est 95246 Hypertension Her BP was extremelyhigh today, and most likely the reason for her JOSÉ. After discovering that she has not been taking her Norvasc, I advised her to restart on this today, and continue to check BP' s. Recheck in 6 weeks along with her thyroid med. If the SBP is >200 and she is symptomatic, I advised that she go to the ED. Ordered: Office Visit Level 4 Est 43313
[2016-12-19] MEDS: SALINE FLUSH 10ml SYRINGE IVF PRN ×3 (10:30→17:17)
--- NOTE | 2016-12-19 10:45 | XRay Report ---
Indication: chest pain dyspnea PROCEDURE: XR chest 1V: Encounter: Initial Comparison: None Findings: There are increased interstitial markings in both lungs. No lobar consolidation. No pleural effusion or pneumothorax. Cardiac silhouette is mildly enlarged. Mediastinal contours appear normal. Pulmonary vascularity is prominent. Impression: 1. Interstitial prominence consistent with mild pulmonary edema. 2. Mild enlargement of the cardiac silhouette could be due to cardiomegaly or pericardial effusion. .
[2016-12-19] MEDS ORDERED: FUROSEMIDE 20 MG/2 ML INJECTION IVP ONE (10:46)
[2016-12-19] MEDS ORDERED: SALINE FLUSH 10ml SYRINGE ONE (11:20)
[2016-12-19] MEDS ORDERED: IOHEXOL 350mg/ml 75ml INJECTION ONE (11:20)
[2016-12-19] MEDS ORDERED: NS 100 ML ONE (11:20)
--- NOTE | 2016-12-19 12:01 | CT Scan Report ---
Indication: hypertension shortness of air hypoxia elevated d-dimer PROCEDURE: CT angio pulm emboli: Encounter: Initial Comparison: Chest x-ray from today Technique: Axial CT pulmonary angiographic phase images were performed through the chest after the administration of intravenous contrast. Coronal and Sagittal MIP reconstructed images were created and reviewed. Automated Exposure Control and Iterative Reconstruction dose reducing techniques were utilized. Contrast: Omnipaque 350 70 mL Findings: Pulmonary arteries: Exam is diagnostic to the subsegmental pulmonary arterial level. No filling defects identified to suggest a pulmonary embolus. Other findings: Interlobular septal thickening with scattered groundglass opacities in both lungs and small pleural effusions. No pneumothorax. No lobar consolidation. The central airways are patent. No axillary lymphadenopathy. Mildly prominent subcarinal node could be reactive. Heart size is mildly enlarged. No pericardial effusion. The upper abdomen shows no acute findings. Bone windows are unremarkable. Impression: 1. No pulmonary embolus. 2. Moderate pulmonary edema, probably due to CHF. .
[2016-12-19] MEDS ORDERED: ALBUTEROL/IPRATROPIUM 2.5mg-0.5mg/3ml NEB AEROSOL ONE (12:11)
[2016-12-19 14:27] VITALS: BMI 46.7
[2016-12-19] MEDS: INSULIN ASPART 100unit/ml INJECTION SQ SCH ×2 (16:11→17:08)
--- NOTE | 2016-12-19 16:26 | History & Physical Report ---
<Ashley Mendenhall - Last Filed: 12/19/16 17:05> History of Present Illness Date: 12/19/16 Chief complaint: Problems breathing, dizzy HPI: Soraya Pelayo is a 61 year old woman who presented to [facility] for difficulty breathing and dizziness. She's actually had these symptoms for about the last two months, and she's sick and tired of feeling this way. She stated that she was at [place] a couple of weeks ago, and wasn't able to walk so she had to borrow a scooter. About a couple of months ago, she ran out her BP medication and stopped taking her Synthroid. She still has been taking insulin but it's not the kind that her PCP wanted her to take. The last time she saw her PCP, about a year ago, she was saddened and frustrated because he was having difficulty managing all of her symptoms at each visit. She saw CASSANDRA Cai about 6 months ago. In addition to dyspnea at rest and with exertion, she has an occasional feeling of an irregular heart rate. Occasionally becomes wheezy, and she states that she's been using her albuterol inhaler 3-4 times/day regularly for the last several weeks. She sleeps with 3-4 pillows, but she's been doing this for the last few years. She snores but hasn't yet been evaluated for sleep apnea. She notes a mild nonproductive cough. She develops nausea when she's dizzy - describes the dizziness as spinning and she's been known to fall after she stands up (since June 2016). She states that her dizziness was worked up but no diagnosis was made. She started noticing increasing swelling in her legs about 2 months ago, and her left leg is always more swollen than her right. In the ED, labs were positive for mild normocytic anemia, hyperglycemia (359), and an elevated BNP and D-dimer. Chest CTA was negative for PE, but did show moderate pulmonary edema. CXR showed cardiomegaly along with pulmonary edema. EKG was negative for acute ischemia. She required 2L of oxygen to maintain sats (she was 88% on room air) - she does not use oxygen at home. The ED physician ordered an albuterol treatment and Lasix 20 mg IV. Review of Systems All systems PM: 10-point ROS was reviewed, no additional remarkable complaints except - Constitutional Constitutional: Present: fatigue, headache(s), weakness. Absent: chills, fever( s), weight gain, weight loss - EENMT Eyes: Present: loss of vision Balance: Present: vertigo Nose: Present: allergies Mouth/Throat: Absent: sore throat, changes in swallowing, painful swallowing - Cardiovascular Cardiovascular: Present: palpitations, dyspnea on exertion, edema. Absent: chest pain Vascular: Present: pedal edema - Respiratory Respiratory: Present: cough, dyspnea on exertion, wheezing - Gastrointestinal Gastrointestinal: Absent: abdominal pain, constipation, diarrhea, hematochezia, nausea, odynophagia - Genitourinary Genitourinary: Present: urinary frequency (after Lasix). Absent: dysuria Menstruation: post menopausal - Musculoskeletal Musculoskeletal: Present: muscle weakness. Absent: back pain - Integumentary/Breasts Integumentary: Absent: rash, wounds - Neurological Neurological: Present: dizziness, loss of vision (chronic), paresthesias ( tingling and pain in legs and feet), weakness. Absent: abnormal gait, abnormal speech, confusion - Psychiatric Psychiatric: Present: abnormal sleep pattern (awakens every 2 hours d/t nocturia ), depression. 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 1985 . 1990 Right carpal tunnel release. 1999 Heart cath, no stents. 2000 Cholecystectomy. 2002 Left Bunionectomy. 2009 left cataract with lens implant. foot debridement. right cataract with lens implant. 2016 Colonoscopy. 2016 Right foot debridement Family History: All 5 siblings have had diabetes - 3 have . One sister at age 42 of complications of MS and DM. She also had a seizure disorder. Youngest sister had DM, pancreatitis - she was 51 years old when she . Her other sister of complications of MVC - she was around 38 or 40 years old. Brother still living - he has diabetes. Mother at age 73, she had DM, CHF, rheumatic valve disease, HTN Father at age 82, he had lymphoma, DM, HTN, CAD. Maternal grandmother had DM and CHF. - Social History Smoking status: Never smoker Substance use type: does not use Alcohol intake frequency: holidays/special occasions only Household members: spouse Current occupational status: retired Previous occupational history: [employer] [employer] Current residence: Apartment/Private Home Medications Home Medications Medication Instructions Recorded Confirmed Type hydroCHLOROthiazide 1 tab PO WB #0 tab 03/18/15 12/19/16 History [Hydrochlorothiazide] Insulin Lispro [Humalog Kwikpen 30 unit SQ TIDWM #0 06/23/15 12/19/16 History U-200] Moexipril HCl 1 tab PO BID #180 06/23/15 12/19/16 History Gabapentin 100 mg PO TID #0 cap 06/24/15 12/19/16 History Amlodipine [Norvasc] 5 mg PO DAILY 12/19/16 12/19/16 History Citalopram [Celexa] 20 mg PO DAILY 12/19/16 12/19/16 History Insulin Glargine,Hum.rec.anlog 53 units SQ HS 12/19/16 12/19/16 History [Toujeo Solostar] Levothyroxine Tab [Synthroid] 88 mcg PO ACB 12/19/16 12/19/16 History Liraglutide [Victoza] 0.6 mg SQ AM 12/19/16 12/19/16 History Simvastatin 20 mg PO DAILY 12/19/16 12/19/16 History Allergies Allergy/AdvReac Type Severity Reaction Status Date / Time Sulfa (Sulfonamide Allergy Mild ITCHING Verified 12/19/16 09:51 Antibiotics) azithromycin Allergy Unknown Verified 12/19/16 09:51 Exam Vital Signs: Temperature 97.1 F 12/19/16 14:23 Pulse Rate 110 H 12/19/16 14:23 Respiratory Rate 30 H 12/19/16 13:15 Blood Pressure 172/73 H 12/19/16 14:23 Pulse Oximetry 96 12/19/16 14:23 Height/Weight/BMI: Height 1.52 m Weight 108.6 kg Body Mass Index 46.7 - Constitutional Present: mild distress, well nourished, well developed, morbidly obese - Routine HEENT Exam Head: Present: normocephalic Eye: Absent: conjunctival icterus ENT: Present: mucous membranes moist, oropharynx clear - Routine Neck Exam Present: supple - Routine Respiratory Exam Present: decreased breath sounds, wheezes (with minimal movement) - Routine Cardiovascular Exam Present: RRR, S1, S2, tachycardia - Routine Abdominal Exam Present: soft, normoactive bowel sounds, non tender - Routine Extremities Exam Present: edema (2+ RLE; 4+ LLE) - Routine Back/Spine/Pelvis Exam Back/Spine: Present: full ROM - Routine Skin Exam Present: intact, dry, warm Comments: PVD color changes to BLE - Routine Neurological Exam Present: alert, oriented X3, CN II-XII intact, normal speech. Absent: facial asymmetry - Routine Psychiatric Exam Present: normal affect, normal thought process, cooperative Results - Labs CBC & Chem 7: 12/19/16 10:28 12/19/16 10:28 - ECG Data Tracing #1 I reviewed this ECG and interpreted as documented below: NSR with ST flattening in lateral leads. No acute ischemic changes. Poor R wave progression. Normal axis. - Imaging and Cardiology Chest x-ray Status: image reviewed by me (cardiomegaly and pulmonary edema) CT scan - chest Status: image reviewed by me (1. 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 Pulmonary edema, hypoxia, asthma - bumex 1 mg IV x1 - supplemental oxygen - echo in am - Dr. Anderson to read - tele, daily weights, monitor I/Os - albuterol PRN Elevated D-dimer, leg swelling (L>R) - CTA chest neg. for PE - B/L venous dopplers DM2 (uncontrolled) - resume insulin, cardiac consistent carb diet - monitor BG fasting and 2 hr PP - check A1c - suspect she may need diabetic education/poss nutritional consult Hypothyroid - Resume levothyroxine - hasn't been taking at home - TSH elevated at 6.80 Deconditioning/pulmonary debility - likely will need PT/OT consult when breathing improves Advanced care directives - would like to name as DPOA - Living will: does not want feeding tube or mechanical ventilation - DNR status - consult CM to try to get these wishes signed and notarized Will need help establishing with PCP prior to discharge. [facility] records reviewed. Hospital Course Summary Disclaimer: The visit summary below is not to be considered part of the above Progress Note. 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 Pulmonary edema, hypoxia, asthma - bumex 1 mg IV x1 - supplemental oxygen - echo in am - Dr. Anderson to read - tele, daily weights, monitor I/Os - albuterol PRN Elevated D-dimer, leg swelling (L>R) - CTA chest neg. for PE - B/L venous dopplers DM2 (uncontrolled) - resume insulin, cardiac consistent carb diet - monitor BG fasting and 2 hr PP - check A1c - suspect she may need diabetic education/poss nutritional consult Hypothyroid - Resume levothyroxine - hasn't been taking at home - TSH elevated at 6.80 Deconditioning/pulmonary debility - likely will need PT/OT consult when breathing improves Advanced care directives - would like to name as DPOA - Living will: does not want feeding tube or mechanical ventilation - DNR status - consult CM to try to get these wishes signed and notarized Will need help establishing with PCP prior to discharge. <Mayi Powers - Last Filed: 12/19/16 20:23> History of Present Illness Date: 12/19/16 Exam Vital Signs: Temperature 97.2 F 12/19/16 17:33 Pulse Rate 84 12/19/16 17:33 Respiratory Rate 30 H 12/19/16 13:15 Blood Pressure 142/62 H 12/19/16 17:33 Pulse Oximetry 94 12/19/16 17:33 Height/Weight/BMI: Height 1.52 m Weight 108.6 kg Body Mass Index 46.7 Results - Labs CBC & Chem 7: 12/19/16 10:28 12/19/16 10:28 Assessment and Plan (1) Hypoxemia requiring supplemental oxygen Current visit: Yes Status: Acute Assessment and Plan: I have independently evaluated and examined this patient. I reviewed the chart, the patient's history, and the FORMS EXAMINER/PA's documented findings as above. We discussed and formulated the assessment and plan as above with additions as below: Mrs. Pelayo has been off all medications for several months (insulin uses been inconsistent and she's not been monitoring blood sugars on a regular basis butthey have been as high as 4-500 intermittently). She denies chest pain but has had progressive dyspnea such that she is short of breath walking across a room and has developed increasing lower extremity edema. She chronically sleeps with 3-4 pillows. She reports long history of snoring and that at one point there was plan to get a sleep study but she never heard anything further from the physician's office. She denied nausea or vomiting and was surprised that her weight wasn't higher today as she considers 240 to be her baseline (109 kg on 04/19/16 when seen [facility]). Moderately dyspneic speaking currently, today's weight 239 pounds, blood pressure improved since presentation and initiation of medications Alert, conjunctiva clear Good airflow and breath sounds largely clear although there are some faint crackles at the bases, no wheezing is present Regular rhythm, S1-S2, I don't appreciate a gallop. +3 edema with pitting LLE, +1 RLE Chest x-ray reviewed by myself-marked cardiomegaly, pulmonary edema CTA reviewed by myself-no PE, diffuse groundglass opacity consistent with fluid. ProBNP 1020, initial troponin <0.012, TSH 6.8, and A1c 10.8 EKG reviewed by myself and without acute changes, borderline LVH. Medications being resumed. Dietary counseling for diabetes. Echocardiogram pending. Continue diuresis. Heart size was not described as enlarged on portable chest x-ray in June 2016 in the outpatient setting. Medication noncompliance is clearly a major issue and will request case management involvement in the event there are financial considerations the patient does not volunteer. Discussed with Dr. May. Hospital Course Summary Disclaimer: The visit summary below is not to be considered part of the above Progress Note.
[2016-12-19] MEDS ORDERED: ALBUTEROL 2.5mg/3ml (0.083%) NEB AEROSOL PRN (16:37)
[2016-12-19] MEDS ORDERED: ALBUTEROL 2.5mg/3ml (0.083%) NEB AEROSOL ONE (16:55)
[2016-12-19] MEDS: LIRAGLUTIDE INJECTABLE PEN SQ SCH (17:15)
[2016-12-19] MEDS: ENOXAPARIN 40 MG/0.4 ML INJECTION SQ SCH (18:37)
[2016-12-19] MEDS ORDERED: ACETAMINOPHEN 325 MG TABLET PO PRN (20:04)
[2016-12-19] MEDS ORDERED: ONDANSETRON 4 MG/2 ML INJECTION IVP PRN (20:04)
[2016-12-19] MEDS ORDERED: INSULIN GLARGINE 100unit/ml INJECTION SQ SCH (21:00)
[2016-12-19] MEDS: GABAPENTIN 100 MG CAPSULE PO SCH (21:11)
[2016-12-19] MEDS: SIMVASTATIN 20 MG TABLET PO SCH (21:11)
[2016-12-19] MEDS: MOEXIPRIL 15 MG PO SCH (21:12)
[2016-12-19] MEDS ORDERED: INSULIN GLARGINE 100unit/ml INJECTION SQ ONE (21:58)
[2016-12-20] MEDS: LEVOTHYROXINE 88 MCG TABLET PO SCH (06:00)
--- NOTE | 2016-12-20 08:00 | Ultrasound Report ---
Indication: b/l leg swelling PROCEDURE: US venous doppler LE BI: Encounter: Initial Comparison: None Technique: Color Doppler duplex and grayscale sonographic imaging of both lower extremities was performed. Findings: There is no evidence for acute deep venous thrombosis in either thigh. Specifically, serial graded compression was performed from the inguinal ligament to the popliteal bifurcation, bilaterally, demonstrating appropriate compressibility of the deep venous system. In addition, color and pulsed Doppler demonstrate appropriate spontaneous flow, variation with respiration, and augmentation with calf compression. At the ankle, normal flow is identified in the posterior tibial veins; these vessels are also normal in caliber. Impression: No evidence of acute DVT in either lower limb. .
[2016-12-20] MEDS: MOEXIPRIL 15 MG PO SCH ×2 (08:27→20:44)
[2016-12-20] MEDS: INSULIN ASPART 100unit/ml INJECTION SQ SCH ×3 (08:27→17:55)
[2016-12-20] MEDS: ENOXAPARIN 40 MG/0.4 ML INJECTION SQ SCH (09:13)
[2016-12-20] MEDS: AMLODIPINE 5 MG TABLET PO SCH (09:13)
[2016-12-20] MEDS: CITALOPRAM 20 MG TABLET PO SCH (09:14)
[2016-12-20] MEDS: GABAPENTIN 100 MG CAPSULE PO SCH ×3 (09:14→20:43)
[2016-12-20] MEDS: LIRAGLUTIDE INJECTABLE PEN SQ SCH (09:14)
--- NOTE | 2016-12-20 14:50 | Progress Note ---
<Jennifer Bruno - Last Filed: 12/20/16 14:47> - Date 12/20/16 Subjective: Patient seen sitting in her bed with her present. She reports she is feeling better. She states she was up and walking around yesterday and feels like she did well. Her swelling is better, that she does continue to have swelling at this point. Appetite is fine. She asks if she can get up and walk around more. Objective Vital signs: Temperature 96.4 F L 12/20/16 08:21 Pulse Rate 79 12/20/16 08:21 Respiratory Rate 30 H 12/19/16 13:15 Blood Pressure 177/75 H 12/20/16 08:21 Pulse Oximetry 98 12/20/16 08:21 Height/Weight/BMI: Height 1.52 m Weight 108.3 kg Body Mass Index 46.7 - Constitutional Present: no acute distress, well nourished, well developed - Routine Respiratory Exam Present: CTA bilaterally. Absent: wheezes - Routine Cardiovascular Exam Present: RRR, S1, S2. Absent: murmur - Routine Abdominal Exam Present: soft, normoactive bowel sounds, non distended. Absent: tenderness - Routine Extremities Exam Present: edema (1+ right extremity, 2-3+ left lower extremity (left extremity is chronically more swollen than right)), normal capillary refill - Routine Skin Exam Present: dry, warm - Routine Neurological Exam Present: alert, oriented X3 - Routine Lymphatic Exam Lymphatic: Absent: adenopathy - Routine Psychiatric Exam Present: normal affect, cooperative Results - Labs CBC & Chem 7: 12/20/16 04:42 12/20/16 04:42 Microbiology Results: Microbiology 12/19/16 22:37 Urine, Voided (Cc/notcc) Urine Culture - Preliminary Culture Initiated - Results Pending Assessment and Plan (1) Hypoxemia requiring supplemental oxygen Current visit: Yes Status: Acute Assessment and Plan: Assessment Acute hypoxic respiratory failure Pulmonary edema, suspect CHF exacerbation Acute kidney injury-likely from diuretics Elevated D-dimer Uncontrolled 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 Swelling improved but still slightly more than what she reports is her baseline. Currently receiving Bumex IV. Creatinine increased some since yesterday. Blood pressures not to goal, but have progressively decreased since admission. We'll continue to follow. Continues to require 2.5 L of oxygen. Hospital Course Summary Disclaimer: The visit summary below is not to be considered part of the above Progress Note. 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 Pulmonary edema, hypoxia, asthma - bumex 1 mg IV x1 - supplemental oxygen - echo in am - Dr. Anderson to read - tele, daily weights, monitor I/Os - albuterol PRN Elevated D-dimer, leg swelling (L>R) - CTA chest neg. for PE - B/L venous dopplers DM2 (uncontrolled) - resume insulin, cardiac consistent carb diet - monitor BG fasting and 2 hr PP - check A1c - suspect she may need diabetic education/poss nutritional consult Hypothyroid - Resume levothyroxine - hasn't been taking at home - TSH elevated at 6.80 Deconditioning/pulmonary debility - likely will need PT/OT consult when breathing improves Advanced care directives - would like to name as DPOA - Living will: does not want feeding tube or mechanical ventilation - DNR status - consult CM to try to get these wishes signed and notarized Will need help establishing with PCP prior to discharge. 12/20/16 PT/OT consult as patient is interested in getting up and around more. Swelling improved but still slightly more than what she reports is her baseline. Currently receiving Bumex IV. Creatinine increased some since yesterday. Blood pressures not to goal, but have progressively decreased since admission. We'll continue to follow. Continues to require 2.5 L of oxygen. <Mayi Powers - Last Filed: 12/20/16 23:00> - Date 12/20/16 Objective Vital signs: Temperature 97.2 F 12/20/16 16:00 Pulse Rate 84 12/20/16 16:36 Respiratory Rate 16 12/20/16 22:22 Blood Pressure 161/60 H 12/20/16 16:00 Pulse Oximetry 96 10/18/17 22:22 Height/Weight/BMI: Height 1.52 m Weight 108.3 kg Body Mass Index 46.7 Results - Labs CBC & Chem 7: 12/20/16 04:42 12/20/16 04:42 Microbiology Results: Microbiology 12/19/16 22:37 Urine, Voided (Cc/notcc) Urine Culture - Preliminary No Growth After 1 Day Assessment and Plan (1) Hypoxemia requiring supplemental oxygen Current visit: Yes Status: Acute Resuscitation Status: Do Not Resuscitate Assessment and Plan: I have independently evaluated and examined this patient. I reviewed the chart, the patient's history, and the PAINTER AND GRADER CORK/PA's documented findings as above. We discussed and formulated the assessment and plan as above with additions as below: Mrs. Durand reports to feel significantly improved today with no exertional dyspnea this afternoon and no chest pain. She's been ambulating with oxygen on and tolerating walking without lightheadedness or excessive fatigue. Her appetite was poor at lunch and blood sugar dropped somewhat in the mid afternoon. Net diuresis of 1.3 L yesterday, weight unchanged; NAD, respirations nonlabored with good airflow and clear breath sounds today Regular rhythm Persistent lower extremity pitting edema L +2, R +1 Echo with ejection fraction 55%, concentric LVH and increased PA pressure-50. Titrated off oxygen this evening with O2 sat 96% at rest on RA. Check overnight oximetry, continue diuresis, check chest x-ray a.m. Fasting blood sugar 200 with subsequent drop after breakfast and lunch. NovoLog decreased from 30 units 3 times a day to 25 units tid. Diabetes education earlier today. Blood pressure persistently elevated-carvedilol initiated. Telemetry reviewed by myself-sinus rhythm, no arrhythmias. Hospital Course Summary Disclaimer: The visit summary below is not to be considered part of the above Progress Note.
[2016-12-20] MEDS ORDERED: INFLUENZA VAC QIV 2017-18 (Fluarix*)(>=3yo) 0.5ml IM ONE (16:07)
--- NOTE | 2016-12-20 17:29 | Echocardiogram ---
DATE OF PROCEDURE December 20, 2016 This is a two-dimensional echo with spectral Doppler, color-flow and M-mode. It was obtained in a patient with congestive heart failure, hypoxia and uncontrolled hypertension. Left atrial dimension is at the upper limits of normal. Left ventricular end- diastolic dimension is normal. Left ventricular wall thickness is increased. LV systolic function is normal with ejection fraction of 55%. Right atrium is normal. Right ventricle is normal. Aortic root dimension is normal. Mitral valve is morphologically normal with trace of mitral regurgitation. Aortic valve appears to be normal. Tricuspid valve shows mild tricuspid regurgitation with moderate pulmonary hypertension with estimated pulmonary artery systolic pressure of 50. Pulmonary valve shows mild pulmonary insufficiency. There is no pericardial effusion. IMPRESSION 1. Normal LV systolic function with ejection fraction of 55%. 2. Concentric left ventricular hypertrophy. 3. Trace of mitral regurgitation. 4. Mild tricuspid regurgitation with moderate pulmonary hypertension with estimated pulmonary artery systolic pressure of 50. 5. Mild pulmonary insufficiency. MTDD
[2016-12-20] MEDS ORDERED: INFLUENZA VAC. INJ. ADMIN CHARGE INJ ONE (18:00)
[2016-12-20] MEDS: SALINE FLUSH 10ml SYRINGE IVF PRN (20:43)
[2016-12-20] MEDS: SIMVASTATIN 20 MG TABLET PO SCH (20:43)
[2016-12-20] MEDS ORDERED: INSULIN GLARGINE 100unit/ml INJECTION SQ SCH (21:00)
[2016-12-21] MEDS: LEVOTHYROXINE 88 MCG TABLET PO SCH (05:57)
[2016-12-21] MEDS: MOEXIPRIL 15 MG PO SCH (06:32)
[2016-12-21 07:18] VITALS: RESP 17
[2016-12-21] MEDS ORDERED: CARVEDILOL 6.25 MG TABLET PO SCH (08:00)
[2016-12-21] MEDS: INSULIN ASPART 100unit/ml INJECTION SQ SCH ×2 (08:25→12:41)
[2016-12-21] MEDS: CITALOPRAM 20 MG TABLET PO SCH (08:31)
[2016-12-21] MEDS: GABAPENTIN 100 MG CAPSULE PO SCH ×2 (08:31→14:40)
[2016-12-21] MEDS: ENOXAPARIN 40 MG/0.4 ML INJECTION SQ SCH (08:32)
[2016-12-21] MEDS: AMLODIPINE 5 MG TABLET PO SCH (08:32)
--- NOTE | 2016-12-21 09:12 | XRay Report ---
INDICATION: CHF PROCEDURE: CHEST 2-VIEWS UPRIGHT (PA & LAT) Encounter: Initial COMPARISON: December 19, 2016 FINDINGS: Pulmonary edema has improved with better aeration of the lungs. Small left pleural effusion is similar. No pneumothorax. No new areas of airspace disease. Heart size and mediastinal contours are stable. Impression: Improving pulmonary edema, now mild. .
[2016-12-21] MEDS: LIRAGLUTIDE INJECTABLE PEN SQ SCH (09:28)
--- NOTE | 2016-12-21 13:37 | Discharge Summary ---
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 Mild normocytic anemia, POA Charcot foot Asthma, allergic rhinitis Morbid obesity, BMI 46.8 Hypothyroid HTN GERD - Laboratory Labs: 12/21/16 04:01 12/21/16 04:01 Laboratory Tests 12/19/16 12/20/16 12/21/16 10:28 04:42 04:01 Creatinine 1.0 1.3 H D 1.3 H Laboratory Tests 12/19/16 12/19/16 10:28 10:28 AST 23 ALT 34 Alkaline Phosphatase 131 H Troponin I < 0.012 B-Natriuretic Peptide 1020 H TSH 6.80 H Laboratory Tests 12/19/16 22:37 Urine pH 6.0 Ur Specific Arnett 1.015 Urine Protein 3+ A Urine Glucose (UA) 1+ A Urine Occult Blood 2+ A Urine Nitrate Positive A Urine RBC None seen Urine WBC 10-20 H Ur Squamous Epith Cells 5-10 Urine Bacteria 4+ H - Microbiology Microbiology Preliminary urine culture shows growth of greater than 100,000 CFU's of Escherichia coli--patient has no urinary symptoms whatsoever. Treatment not indicated as patient has asymptomatic bacteriuria - Radiology Radiology: 12/19/16 chest x-ray Findings: There are increased interstitial markings in both lungs. No lobar consolidation. No pleural effusion or pneumothorax. Cardiac silhouette is mildly enlarged. Mediastinal contours appear normal. Pulmonary vascularity is prominent. Impression: 1. Interstitial prominence consistent with mild pulmonary edema. 2. Mild enlargement of the cardiac silhouette could be due to cardiomegaly or pericardial effusion. 12/21/16 chest x-ray COMPARISON: December 19, 2016 FINDINGS: Pulmonary edema has improved with better aeration of the lungs. Small left pleural effusion is similar. No pneumothorax. No new areas of airspace disease. Heart size and mediastinal contours are stable. Impression: Improving pulmonary edema, now mild. CTA chest 12/19/2016 Indication: hypertension shortness of air hypoxia elevated d-dimer Pulmonary arteries: Exam is diagnostic to the subsegmental pulmonary arterial level. No filling defects identified to suggest a pulmonary embolus. Other findings: Interlobular septal thickening with scattered groundglass opacities in both lungs and small pleural effusions. No pneumothorax. No lobar consolidation. The central airways are patent. No axillary lymphadenopathy. Mildly prominent subcarinal node could be reactive. Heart size is mildly enlarged. No pericardial effusion. The upper abdomen shows no acute findings. Bone windows are unremarkable. Impression: 1. No pulmonary embolus. 2. Moderate pulmonary edema, probably due to CHF. 12/20/2016 echocardiogram Left atrial dimension is at the upper limits of normal. Left ventricular end- diastolic dimension is normal. Left ventricular wall thickness is increased. LV systolic function is normal with ejection fraction of 55%. Right atrium is normal. Right ventricle is normal. Aortic root dimension is normal. Mitral valve is morphologically normal with trace of mitral regurgitation. Aortic valve appears to be normal. Tricuspid valve shows mild tricuspid regurgitation with moderate pulmonary hypertension with estimated pulmonary artery systolic pressure of 50. Pulmonary valve shows mild pulmonary insufficiency. There is no pericardial effusion. IMPRESSION 1. Normal LV systolic function with ejection fraction of 55%. 2. Concentric left ventricular hypertrophy. 3. Trace of mitral regurgitation. 4. Mild tricuspid regurgitation with moderate pulmonary hypertension with estimated pulmonary artery systolic pressure of 50. 5. Mild pulmonary insufficiency. 12/19/2016-bilateral lower extremity venous Doppler Findings: There is no evidence for acute deep venous thrombosis in either thigh. Specifically, serial graded compression was performed from the inguinal ligament to the popliteal bifurcation, bilaterally, demonstrating appropriate compressibility of the deep venous system. In addition, color and pulsed Doppler demonstrate appropriate spontaneous flow, variation with respiration, and augmentation with calf compression. At the ankle, normal flow is identified in the posterior tibial veins; these vessels are also normal in caliber. Impression: No evidence of acute DVT in either lower limb. History of Present Illness HPI: Soraya Pelayo is a 61 year old woman who presented to [facility] ED for difficulty breathing and dizziness. She's actually had these symptoms for about the last two months, and she's sick and tired of feeling this way. She stated that she was at [place] a couple of weeks ago, and wasn't able to walk so she had to borrow a scooter. About a couple of months ago, she ran out her BP medication and stopped taking her Synthroid. She still has been taking insulin but it's not the kind that her PCP wanted her to take. The last time she saw her PCP, about a year ago, she was saddened and frustrated because he was having difficulty managing all of her symptoms at each visit. She saw CASSANDRA Cai about 6 months ago. In addition to dyspnea at rest and with exertion, she has an occasional feeling of an irregular heart rate. Occasionally becomes wheezy, and she states that she's been using her albuterol inhaler 3-4 times/day regularly for the last several weeks. She sleeps with 3-4 pillows, but she's been doing this for the last few years. She snores but hasn't yet been evaluated for sleep apnea. She notes a mild nonproductive cough. She develops nausea when she's dizzy - describes the dizziness as spinning and she's been known to fall after she stands up (since June 2016). She states that her dizziness was worked up but no diagnosis was made. She started noticing increasing swelling in her legs about 2 months ago, and her left leg is always more swollen than her right. In the ED, labs were positive for mild normocytic anemia, hyperglycemia (359), and an elevated BNP and D-dimer. Chest CTA was negative for PE, but did show moderate pulmonary edema. CXR showed cardiomegaly along with pulmonary edema. EKG was negative for acute ischemia. She required 2L of oxygen to maintain sats (she was 88% on room air) - she does not use oxygen at home. The ED physician ordered an albuterol treatment and Lasix 20 mg IV. Objective Vital signs: Temperature 97.0 F 12/21/16 07:16 Pulse Rate 84 12/21/16 08:00 Respiratory Rate 17 12/21/16 07:16 Blood Pressure 179/73 H 12/21/16 07:16 Pulse Oximetry 91 12/21/16 07:16 Height/Weight/BMI: Height 1.52 m Weight 107 kg Body Mass Index 46.7 - Constitutional Present: no acute distress, well nourished, well developed, obese - Routine HEENT Exam Head: Present: normocephalic, atraumatic ENT: Present: mucous membranes moist - Routine Respiratory Exam Present: decreased breath sounds, CTA bilaterally. Absent: wheezes - Routine Cardiovascular Exam Present: RRR, S1, S2. Absent: murmur - Routine Abdominal Exam Present: soft, normoactive bowel sounds, non distended. Absent: tenderness - Routine Extremities Exam Present: edema (2+ left lower extremity, trace right), normal capillary refill - Routine Skin Exam Present: dry, warm - Routine Neurological Exam Present: alert, oriented X3 - Routine Lymphatic Exam Lymphatic: Absent: adenopathy - Routine Psychiatric Exam Present: normal affect, cooperative Hospital Course This is a general summary of the patient's hospital course. For more details refer to the complete medical record. Hospital course: Patient was initially admitted to inpatient status from the emergency room for pulmonary edema, hypoxia, and asthma. Etiology was thought to most likely be CHF , although, given her positive d-dimer, CTA chest and bilateral lower extremity venous Dopplers were performed. CTA chest was positive for pulmonary edema and no embolus, and Doppler was negative. Further workup included echocardiogram ( see results above) and repeat chest x-ray which showed improvement. She was started on Bumex 1 mg IV, followed with telemetry and given supplemental oxygen. Her swelling improved and her oxygen needs decreased. After initiation of Bumex, her creatinine increased from 1.0 to 1.3 where it remains on discharge. During her stay, her blood pressure was elevated so Coreg was initiated. She had overnight oximetry performed showing that she desaturates into the 80s with sleep, so she was set up for home oxygen. Will plan on her using 2 L per nasal cannula only during the night. She was also found to have Escherichia coli in her urine. This was collected upon admission per routine protocol. She has had no urinary symptoms whatsoever , so treatment is not indicated as this would be considered asymptomatic bacteriuria. Her TSH was also found to be elevated at 6.8, but she admitted to not taking her thyroid medication at home, so medicine was resumed the dosage was not changed. She will need follow-up with her PCP within one week, as well as a BMP to monitor renal function. Her new medications are Coreg 6.25 mg twice a day, Bumex 1 mg daily. (She was getting this 1 mg IV twice a day up until discharge. Patient was instructed to double her dosage if she notices any increase in swelling, shortness of breath, or weight gain.) She was taken off of her hydrochlorothiazide. Her insulin doses changed during her hospital stay. She will start home oxygen at 2 L overnight only. Time spent with patient: discharge greater than 30 minutes DVT Prophylaxis: SCD's Discharge Plan - Med Rec/Dispo Referrals/Follow Up: Ted Francisco MD [Family Provider] - 1 Week Сергей Instructions: [facility] Congestive Heart Failure Additional Instructions: If you develop increased shortness of breath, weight gain or swelling, you may increase your Bumex (bumetanide) to 2 pills daily instead of 1 pill daily. Prescriptions: New RX: Nitroglycerin [Nitrostat] 0.4 mg SL Q5MIN3 PRN tablet PRN Reason: Chest Pain RX: Carvedilol [Coreg] 6.25 mg PO BIDWM #60 tab RX: Bumetanide 1 mg PO DAILY #30 tab Continue RX: Moexipril HCl 1 tab PO BID #180 RX: Gabapentin 100 mg PO TID #0 cap RX: Amlodipine [Norvasc] 5 mg PO DAILY RX: Simvastatin 20 mg PO DAILY RX: Citalopram [Celexa] 20 mg PO DAILY RX: Levothyroxine Tab [Synthroid] 88 mcg PO ACB RX: Liraglutide [Victoza] 0.6 mg SQ AM Changed RX: Insulin Glargine,Hum.rec.anlog [Toujeo Solostar] 10 units SQ HS #0 RX: Insulin Lispro [Humalog Kwikpen U-200] 25 unit SQ TIDWM #0 Discontinued RX: hydroCHLOROthiazide [Hydrochlorothiazide] 1 tab PO WB #0 tab Discharge Instructions/Outpatient Orders: Provider Discharge Instructions Location: Determined By Patient - Disposition 01 Discharged Home, Self-Care <Mayi Powers - Last Filed: 12/21/16 21:28> Discharge Information Date of admission: 12/19/16 13:51 - Discharge Diagnosis (1) Hypoxemia requiring supplemental oxygen Status: Acute - Laboratory Labs: 12/21/16 04:01 12/21/16 04:01 - Microbiology Microbiology 12/19/16 22:37 Urine, Voided (Cc/notcc) Urine Culture - Preliminary Escherichia coli Objective Vital signs: Temperature 96.7 F L 12/21/16 14:59 Pulse Rate 76 12/21/16 15:23 Respiratory Rate 17 12/21/16 14:59 Blood Pressure 136/59 12/21/16 14:59 Pulse Oximetry 94 12/21/16 14:59 Height/Weight/BMI: Height 1.52 m Weight 107 kg Body Mass Index 46.7 Hospital Course This is a general summary of the patient's hospital course. For more details refer to the complete medical record. Hospital course: I have independently evaluated and examined this patient. I reviewed the chart, the patient's history, and the CLEARING DISTRIBUTION CLERK/PA's documented findings as above. We discussed and formulated the assessment and plan as above with additions as below: Mrs. Pelayo is doing well today and she is ambulated a full lap around the medical unit on room air and denies dyspnea. She is diuresing well with stable renal function. She denied chest pain or palpitations. Respirations are nonlabored with good airflow and clear breath sounds. There is residual bilateral lower extremity edema left greater than right which is chronically true. Weight down 1.6 kg from admission. Overnight oximetry reviewed-2 minutes and 57 seconds with oxygen saturation<89% . When 2 L supplemental oxygen was initiated there was minimal hypoxia and went oxygen decreased to 1 L intermittent hypoxia recurred. Supplemental oxygen at 2 L recommended for nighttime use due to chronic diastolic CHF. Orders completed. Patient is scheduling follow-up with Dr. Connell with follow-up to occur in the near future. Discharge weight 107 kg.
[2016-12-21 15:01] VITALS: BP 136/59; TEMP 96.7; O2SAT 94
[2016-12-21 15:24] VITALS: PULSE 76
== END 2016-12-21 16:40 | disposition home or self-care (01) | DRG 189 ==
LOC: ED 09:42 → MED 13:51
PROVIDERS: ADMIT Internal Medicine; ATTEND Internal Medicine